=== PATIENT | male | born 1965 | race Caucasian/White ===

== ENCOUNTER 2016-05-30 16:37 | Emergency (ER) | payer OTHER ==
[~2016-05-30] VITALS: Ht 170.2 cm; Wt 77.1 kg
[~2016-05-30 16:37] MED LIST: ATIVAN0.5 MG ORAL; BENTYL10 MG ORAL; BUSPAR5 MG PO; CEPHALEXIN500 MG ORAL; CORTISPORIN EAR10 ML RIGHT EAR; CYCLOBENZAPRINE10 MG ORAL; DEPAKOTE250 MG PO; IBUPROFEN400 MG ORAL; IBUPROFEN600 MG ORAL; IBUPROFEN600 MG PO; INH300 MG PO; KEFLEX500 MG ORAL; LAMICTAL25 MG PO; LEVAQUIN500 MG ORAL; MECLIZINE HCL25 MG ORAL; ONDANSETRON HCL8 MG PO; POTASSIUM CHLO20 ME1 PO; PYRIDOXINE HCL50 MG PO; TENORMIN25 MG ORAL; TENORMIN25 MG PO; TRUVADA1 TAB PO; VICODIN 5-5001 EACH ORAL; VIRAMUNE XR400 MG PO; ZANTAC150 MG ORAL; ZOFRAN ODT4 MG ORAL; ZOLOFT25 MG PO
[2016-05-30 17:02] VITALS: BP 132/81
[2016-05-30] MEDS ORDERED: CEPHALEXIN500 MG ORAL ×2 (17:22→17:30)
[2016-05-30 17:30] VITALS: BP 132/81
--- NOTE | 2016-05-30 19:13 | Emergency Room Report ---
History of Present Illness General Chief Complaint: Skin Rash/Abscess Source: Patient Present Illness HPI The patient is a 51-year-old male presenting with right buttock bumps which he noticed last night. The patient denies any pain to the site and denies fever, chills, numbness, tingling, bleeding, melena, hematochezia Allergies: Coded Allergies: No Known Allergies (Unverified , 03/25/13) Patient History Past Medical History: see triage record Pertinent Family History: none Reviewed Nursing Documentation: PMH: Agreed, PSxH: Agreed Nursing Documentation-PMH Past Medical History: No History, Except For Hx Cardiac Problems: Yes - Palpitation Hx Hypertension: No Hx Pacemaker: No Hx Asthma: No Hx COPD: No Hx Diabetes: No Hx Cancer: No Hx Dialysis: No Hx Neurological Problems: No Hx Cerebrovascular Accident: No Hx Seizures: No Review of Systems All Other Systems: negative except mentioned in HPI Physical Exam Vital Signs Date Time Temp Pulse Resp B/P Pulse Ox O2 Delivery O2 Flow Rate FiO2 05/30/16 16:56 98.8 70 13 132/81 100 Room Air Sp02 EP Interpretation: reviewed, normal General Appearance: no apparent distress, alert, GCS 15, non-toxic Head: normocephalic, atraumatic Eyes: bilateral eye PERRL, bilateral eye normal inspection ENT: hearing grossly normal, normal pharynx, no angioedema, normal voice Musculoskeletal: back normal, gait/station normal, normal range of motion, non- tender Neurologic: alert, oriented x3, responsive, motor strength/tone normal, sensory intact, speech normal Psychiatric: judgement/insight normal, memory normal, mood/affect normal, no suicidal/homicidal ideation Skin: other - erythema to R medial buttock. Hot to touch. No edema. Non tender Medical Decision Making PA Attestation Dr. Russo is my supervising physician. Patient management was discussed with my supervising physician Diagnostic Impression: Primary Impression: Cellulitis of buttock, right ER Course The patient is a 51-year-old male presenting with right buttock bumps which he noticed last night. Ddx considered include but not limited to insect bite, contact dermatitis, eczema, cellulitis, abscess PE: vitals WNL. NAD R buttock: erythema to R medial buttock. Hot to touch. No edema. Non tender. No hemorrhoid. No papules or vesicles. The patient will be discharged home with a prescription for Keflex. ER precautions are given Last Vital Signs Date Time Temp Pulse Resp B/P Pulse Ox O2 Delivery O2 Flow Rate FiO2 05/30/16 17:30 98.8 78 13 132/81 100 Room Air Status: improved Disposition: HOME, SELF-CARE Condition: Improved Scripts Cephalexin* (KEFLEX*) 500 Mg Capsule 500 MG ORAL EVERY 12 HOURS, #14 CAP 0 Refills Prov: ROBERT APONTE 05/30/16 Referrals: THOMAS DUFFY (PCP) Patient Instructions: Cellulitis Additional Instructions: I discussed my findings with the patient. All questions and concerns have been answered. Treatment and medication compliance have been addressed. I advised the patient that they need to follow up with PMD in 3-5 days. Return to ED if symptoms worsen, new symptoms arise, or if needed for any reason. Patient verbalized understanding of discharge instructions. ROBERT APONTE May 30, 2016 19:13
[2016-05-31] MEDS ORDERED: HYDROCORTISONE28 G2 TP (09:55)
== END 2016-05-30 17:30 | disposition home or self-care (01) ==
LOC: EMR 17:11
DX: L03.317 Cellulitis of buttock (principal)
CPT/HCPCS: 99283

== ENCOUNTER 2016-05-31 09:34 | Emergency (ER) | payer OTHER ==
[~2016-05-31] VITALS: Ht 170.2 cm; Wt 79.8 kg
[2016-05-31 09:47] VITALS: BP 126/80
[2016-05-31] MEDS ORDERED: HYDROCORTISONE28 G2 TP (09:55)
--- NOTE | 2016-05-31 10:04 | Emergency Room Report ---
History of Present Illness General Chief Complaint: Skin Rash/Abscess Source: Patient Present Illness HPI Patient is a 51-year-old male presented after increased skin rash. The patient reported having a non-itchy rash raised lesions to his right buttock. He denied any fever. He had not been having any severe pain. Patient had denied any recent illness. Patient stated that this had been present in the past and resolve spontaneously. Patient is not using any new skin care products. He denied any trauma. Allergies: Coded Allergies: CEPHALEXIN (Verified Allergy, Unknown, 05/31/16) Patient History Reviewed Nursing Documentation: PMH: Agreed, PSxH: Agreed Nursing Documentation-PM Past Medical History: No History, Except For Hx Hypertension: No Hx Pacemaker: No Hx Asthma: No Hx COPD: No Hx Diabetes: No Hx Cancer: No Hx Dialysis: No Hx Neurological Problems: No Hx Cerebrovascular Accident: No Hx Seizures: No Review of Systems All Other Systems: negative except mentioned in HPI Physical Exam Vital Signs Date Time Temp Pulse Resp B/P Pulse Ox O2 Delivery O2 Flow Rate FiO2 05/31/16 09:39 97.0 58 16 126/80 100 Room Air General Appearance: well appearing, no apparent distress, alert, GCS 15 Head: normocephalic, atraumatic ENT: hearing grossly normal, normal voice Neck: full range of motion, supple Respiratory: no respiratory distress, speaking full sentences Gastrointestinal: normal inspection, normal bowel sounds, non tender, soft Musculoskeletal: normal inspection, back normal, no calf tenderness Neurologic: normal inspection, alert, oriented x3, responsive, normal gait Psychiatric: normal inspection, judgement/insight normal, mood/affect normal Skin: rash - light pink papular lesions to both forearms and right buttock Medical Decision Making Diagnostic Impression: Primary Impression: Rash ER Course The patient presented for skin rash. Differential diagnosis included wasn't limited to here to dermatitis, contact allergy, scabies, eczema among others. This rash appears to be consistent with an eczematous dermatitis. Patient was given prescription for hydrocortisone cream. The patient is advised to follow up with primary care doctor in 1-2 days. Patient is advised to return if any worsening condition or if any changes in status that are concerning. Last Vital Signs Date Time Temp Pulse Resp B/P Pulse Ox O2 Delivery O2 Flow Rate FiO2 05/31/16 09:47 97.0 60 16 126/80 100 Room Air Status: improved Disposition: HOME, SELF-CARE Condition: Stable Scripts Hydrocortisone Acetate 1% Onit (HYDROCORTISONE 1% OINT) Y Oint 28 GM TP DAILY for 10 Days, #28 GM Prov: Norman Palmer 05/31/16 Referrals: THOMAS DUFFY (PCP) Patient Instructions: Norman Nur May 31, 2016 10:04
[2016-05-31 10:20] VITALS: BP 126/80
== END 2016-05-31 10:21 | disposition home or self-care (01) ==
LOC: EMR 09:55
DX: R21 Rash and other nonspecific skin eruption (principal); Z88.1 Allergy status to other antibiotic agents
CPT/HCPCS: 99283

== ENCOUNTER 2016-07-01 20:27 | Emergency (ER) | payer OTHER ==
[~2016-07-01] VITALS: Ht 170.2 cm; Wt 80.7 kg
[~2016-07-01 20:27] MED LIST changes: +HYDROCORTISONE28 G2 TP
[2016-07-01] MEDS ORDERED: CYCLOBENZAPRINE10 MG ORAL (21:20)
[2016-07-01] MEDS ORDERED: IBUPROFEN600 MG ORAL (21:20)
[2016-07-01 21:27] VITALS: BP 141/86
[2016-07-01 21:29] VITALS: BP 141/86
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
== END 2016-07-01 21:30 | disposition home or self-care (01) ==
LOC: EMR 21:19
DX: S16.1XXA Strain of muscle, fascia and tendon at neck level, initial encounter (principal); Z88.1 Allergy status to other antibiotic agents; V43.52XA Car driver injured in collision with other type car in traffic accident, initial encounter; Y92.410 Unspecified street and highway as the place of occurrence of the external cause; Y99.8 Other external cause status
CPT/HCPCS: 99284

== ENCOUNTER 2016-07-16 10:55 | Emergency (ER) | payer OTHER ==
[~2016-07-16] VITALS: Ht 170.2 cm; Wt 81.2 kg
[2016-07-16 11:06] VITALS: BP 123/73
[2016-07-16] MEDS ORDERED: NYSTATIN100000 UN1 ORAL (12:28)
[2016-07-16 12:35] VITALS: BP 129/78
--- NOTE | 2016-07-16 23:39 | Emergency Room Report ---
History of Present Illness General Chief Complaint: General Complaint Source: Patient Present Illness HPI Patient with sore throat and white plaques R side of throat. Reported fever, not documented. No chills. Able to eat without difficulty. No other URI sy. HIV + states viral load low and T cells high. States recent follow by PMD. Patient reluctant to give other history or discuss sexual practices. Allergies: Coded Allergies: CEPHALEXIN (Verified Allergy, Unknown, 05/31/16) Patient History Past Medical History: see triage record Social History: Reports: smoking Social History Narrative at home Nursing Documentation-[facility] Past Medical History: No History, Except For Hx Hypertension: No Hx Pacemaker: No Hx Asthma: No Hx COPD: No Hx Diabetes: No Hx Cancer: No Hx Dialysis: No Hx Neurological Problems: No Hx Cerebrovascular Accident: No Hx Seizures: No Review of Systems All Other Systems: negative except mentioned in HPI Physical Exam Vital Signs Date Time Temp Pulse Resp B/P Pulse Ox O2 Delivery O2 Flow Rate FiO2 07/16/16 10:57 98.1 64 14 123/73 98 Room Air Sp02 EP Interpretation: reviewed, normal General Appearance: well appearing, no apparent distress Head: normocephalic, atraumatic Eyes: bilateral eye PERRL, bilateral eye normal inspection ENT: hearing grossly normal, normal voice, pharyngeal erythema - with white plaque R, no pseudomembrane Neck: full range of motion, supple Respiratory: no respiratory distress, speaking full sentences Cardiovascular #1: regular rate, rhythm Musculoskeletal: digits/nails normal, gait/station normal Neurologic: alert, normal gait, grossly normal Psychiatric: other - flat affect and slightly suspicious, not delusional or suicidal Skin: normal inspection, no rash Medical Decision Making Diagnostic Impression: Primary Impression: Thrush, oral Additional Impressions: Throat pain HIV (human immunodeficiency virus infection) H/O: depression ER Course Patient with HIV and sore throat with white plaque. DDx: mono, thrush, strep, GC, viral. Exam against strep. Exam also most c/w thrush. Patient reluctant for any testing and also questions treatment plan. I explained my findings and told him of plan for Rx: He states he will check with own MD before accepting treatment. Patient stable for outpatient observation and treatment Last Vital Signs Date Time Temp Pulse Resp B/P Pulse Ox O2 Delivery O2 Flow Rate FiO2 07/16/16 12:35 61 16 129/78 100 Room Air 07/16/16 11:06 98.1 Status: unchanged Disposition: HOME, SELF-CARE Condition: Stable Scripts Nystatin* (NYSTATIN*) 100,000 Unit/1 Ml Oral.susp 5 ML ORAL FOUR TIMES A DAY for 10 Days, ML Swish in the mouth and retain for as long as possible (several minutes) before swallowing Prov: Malcolm Westbrook M.D. 07/16/16 Patient Instructions: Thrush, Adult Additional Instructions: Follow up with your doctor. This could be viral. Tylenol can help with pain and fever. Malcolm Westbrook M.D. Jul 16, 2016 23:38
== END 2016-07-16 12:35 | disposition home or self-care (01) ==
LOC: EMR 11:50
DX: B37.0 Candidal stomatitis (principal); F32.9 Major depressive disorder, single episode, unspecified; F17.200 Nicotine dependence, unspecified, uncomplicated; Z88.1 Allergy status to other antibiotic agents
CPT/HCPCS: 99283

== ENCOUNTER 2016-09-02 22:19 | Emergency (ER) | payer OTHER ==
[~2016-09-02] VITALS: Ht 170.2 cm; Wt 80.7 kg
[~2016-09-02 22:19] MED LIST changes: +NYSTATIN100000 UN1 ORAL
[2016-09-02 23:05] VITALS: BP 134/79
[2016-09-02 23:38] LABS: APPEARANCE,URINE CLEAR; KETONES,URINE 4+ (NEGATIVE); LEUKOCYTE ESTERASE ,URINE NEGATIVE (NEGATIVE); NITRITE,URINE NEGATIVE (NEGATIVE); PH,URINE 5 (4.5-8.0); PROTEIN,URINE NEGATIVE (NEGATIVE); UROBILINOGEN,URINE NORMAL MG/DL (0.0-1.0)
[2016-09-03 00:21] LABS: WBC,URINE 0-2 /HPF (0 - 0)
[2016-09-03 00:41] VITALS: BP 127/76
--- NOTE | 2016-09-03 02:05 | Emergency Room Report ---
History of Present Illness General Chief Complaint: Male Urogenital Problems Source: Patient Present Illness HPI 51 YOM c/o intermittent inability to urinate. However was able to urinate before coming to ED. Denies dysuria, fever/chills, flank pain, history of urinary obstruction, BPH or previous dunham catheter placement. Saw Urologist last week, had "normal" bladder scan and UA. Patient endorses a lot of stress at home, work. Allergies: Coded Allergies: CEPHALEXIN (Verified Allergy, Unknown, 05/31/16) Patient History Past Medical History: none Past Surgical History: none Pertinent Family History: none Social History: Denies: alcohol use, drug use, smoking Immunizations: UTD Reviewed Nursing Documentation: PMH: Agreed, PSxH: Agreed Nursing Documentation-PMH Past Medical History: No History, Except For Hx Hypertension: No Hx Pacemaker: No Hx Asthma: No Hx COPD: No Hx Diabetes: No Hx Cancer: No Hx Dialysis: No Hx Neurological Problems: No Hx Cerebrovascular Accident: No Hx Seizures: No Review of Systems All Other Systems: negative except mentioned in HPI Physical Exam Vital Signs Date Time Temp Pulse Resp B/P Pulse Ox O2 Delivery O2 Flow Rate FiO2 09/02/16 22:54 98.2 84 16 134/79 98 Room Air Sp02 EP Interpretation: reviewed, normal General Appearance: normal inspection, well appearing, no apparent distress, alert Head: atraumatic ENT: normal ENT inspection, hearing grossly normal, normal voice Neck: normal inspection, full range of motion, supple, no bony tend Respiratory: normal inspection, lungs clear, normal breath sounds, no respiratory distress, no retraction, no wheezing Cardiovascular #1: regular rate, rhythm, no edema Gastrointestinal: normal inspection, normal bowel sounds, non tender, soft, no guarding, no hernia Genitourinary: no CVA tenderness Musculoskeletal: normal inspection, back normal, normal range of motion, Staci' s Sign negative Neurologic: normal inspection, alert, oriented x3, responsive, water trainer III-XII nml as tested, motor strength/tone normal, speech normal Psychiatric: normal inspection, judgement/insight normal, mood/affect normal, anxious, other - avoiding eye contact, flat affect Skin: normal inspection, normal color, no rash Medical Decision Making Diagnostic Impression: Primary Impression: Urinary retention ER Course 51 YO M with episodes of urinary retention Bedside sono does NOT show distended bladder UA: microscopic hematuria but no UTI Reassured patient Advised Urology followup as needed Last Vital Signs Date Time Temp Pulse Resp B/P Pulse Ox O2 Delivery O2 Flow Rate FiO2 09/03/16 00:41 98.2 84 16 134/79 98 Room Air Status: improved Disposition: HOME, SELF-CARE Condition: Improved Patient Instructions: Acute Urinary Retention, Male, [id number] BRAVO MORGAN M.D. Sep 03, 2016 02:05
== END 2016-09-03 00:41 | disposition home or self-care (01) ==
LOC: EMR 22:37
DX: R33.9 Retention of urine, unspecified (principal); Z88.1 Allergy status to other antibiotic agents
CPT/HCPCS: 81003; 99282

== ENCOUNTER 2016-09-23 09:39 | Emergency (ER) | payer OTHER ==
[~2016-09-23] VITALS: Ht 170.2 cm; Wt 80.7 kg
[2016-09-23 10:05] VITALS: BP 118/71
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
[2016-09-23] MEDS ORDERED: IBUPROFEN600 MG ORAL (10:22)
[2016-09-23 10:52] VITALS: BP 122/75
== END 2016-09-23 10:54 | disposition home or self-care (01) ==
LOC: EMR 10:25
DX: R10.31 Right lower quadrant pain (principal); Z88.8 Allergy status to other drugs, medicaments and biological substances
CPT/HCPCS: 99283

== ENCOUNTER 2016-09-27 14:18 | Emergency (ER) | payer OTHER ==
[~2016-09-27] VITALS: Ht 170.2 cm; Wt 80.7 kg
--- NOTE | 2016-09-27 14:50 | Emergency Room Report ---
History of Present Illness General Chief Complaint: General Complaint Source: Medical Record Present Illness HPI 51 YO Male presents to the ED for evaluation of one episode of palpitation without CP that occurred yesterday early afternoon. Pt. as hx of anxiety, and psychiatrist dx'd pt. w. with somatic disorder. pt. currently takes atenolol. reports one episode yesterday of palpitations that resolved on their own. pt. reports being "very stressed" when trying to order breakfast. he felt he was having to wait longer than usual for a waffle, the restaurant neglected to tell him that the waffle maker required time to "warm up first". Pt states he has tried buspar in the past which worked well for him, and has had several psychiatrists and that SSRI's do not work well for him as they worsen his symptoms. pt. states he has another appt. with a new psych. on the of this month. pt. denies palpitations today. pt. came to ED for evaluation since the soonest appt. he could get with the new psychiatrist is not until the . Denies N/V/F/C. Denies SOB, recent illness, cough, CP, , LOC, AMS, dizziness, Changes in Vision, Sensation, paresthesias, or a sudden severe headache. Allergies: Coded Allergies: CEPHALEXIN (Verified Allergy, Unknown, 05/31/16) Patient History Past Medical History: see triage record, psych hx Past Surgical History: none Pertinent Family History: none Reviewed Nursing Documentation: PMH: Agreed, PSxH: Agreed Nursing Documentation-PMH Past Medical History: No History, Except For Hx Hypertension: No Hx Pacemaker: No Hx Asthma: No Hx COPD: No Hx Diabetes: No Hx Cancer: No Hx Dialysis: No Hx Neurological Problems: No Hx Cerebrovascular Accident: No Hx Seizures: No Review of Systems All Other Systems: negative except mentioned in HPI Physical Exam Vital Signs Date Time Temp Pulse Resp B/P Pulse Ox O2 Delivery O2 Flow Rate FiO2 09/27/16 14:45 98.4 69 16 124/80 96 Room Air Sp02 EP Interpretation: reviewed, normal General Appearance: no apparent distress, alert, GCS 15, non-toxic Head: normocephalic, atraumatic Eyes: bilateral eye PERRL, bilateral eye normal inspection ENT: hearing grossly normal, normal pharynx, no angioedema, normal voice Neck: full range of motion, supple/symm/no masses Respiratory: chest non-tender, lungs clear, normal breath sounds, speaking full sentences Cardiovascular #1: regular rate, rhythm, no edema Musculoskeletal: back normal, gait/station normal, normal range of motion, non- tender Neurologic: alert, oriented x3, responsive, motor strength/tone normal, sensory intact, speech normal Psychiatric: judgement/insight normal, memory normal, mood/affect normal, anxious Skin: normal color, no rash, warm/dry, well hydrated Medical Decision Making PA Attestation Dr. Palmer is my supervising Physician whom patient management has been discussed with. Diagnostic Impression: Primary Impression: Palpitations ER Course 51 YO Male presents to the ED for evaluation of one episode of palpitation without CP that occurred yesterday early afternoon. Pt. as hx of anxiety, and psychiatrist dx'd pt. w. with somatic disorder. pt. currently takes atenolol. reports one episode yesterday of palpitations that resolved on their own. pt. reports being "very stressed" when trying to order breakfast. he felt he was having to wait longer than usual for a waffle, the restaurant neglected to tell him that the waffle maker required time to "warm up first". Pt states he has tried buspar in the past which worked well for him, and has had several psychiatrists and that SSRI's do not work well for him as they worsen his symptoms. pt. states he has another appt. with a new psych. on the of this month. pt. denies palpitations today. pt. came to ED for evaluation since the soonest appt. he could get with the new psychiatrist is not until the . Denies N/V/F/C. Denies SOB, recent illness, cough, CP, , LOC, AMS, dizziness, Changes in Vision, Sensation, paresthesias, or a sudden severe headache. Ddx considered but are not limited to TX, arrhythmia, hypokalemia, anxiety reaction. Vital signs: are WNL, pt. is afebrile H&PE are most consistent with hx of palpitation, hx of anxiety ORDERS: - EK BPM NSR, no acute ST changes, reviewed by Dr. Palmer who has also reviewed this pt,'s ekg's in the past. Pt has been evaluated here in the ED for same complaint multiple times in the past with benign testing results. pt. states he has also been seen by network diagnostic support specialist and psych. pt. does not report change in character from previous episodes of palpitations. I do not feel that further work up is necessary at this time, given relatively normal EKG and benign PE with previously normal work ups. ED INTERVENTIONS: none. PT EDUCATION: encouraged pt. to go to his psych appt. on the , and d/w pt. medications to reduce anxiety, which ultimately may help with episodes of palpitations. also d/w pt. that he should also be re-evaluated by [employer] Worker. d/w pt. to return to ED with worsening or new symptoms. DISCHARGE: At this time pt. is stable for d/c to home. Will provide printed patient care instructions, and any necessary prescriptions. Care plan and follow up instructions have been discussed with the patient prior to discharge. EKG Diagnostic Results EP Interpretation: Rate: normal - 70 bpm Rhythm: NSR ST Segments: no acute changes ASA given to the pt in ED: No Last Vital Signs Date Time Temp Pulse Resp B/P Pulse Ox O2 Delivery O2 Flow Rate FiO2 09/27/16 14:45 98.4 16 96 09/27/16 14:45 69 124/80 Room Air Disposition: HOME, SELF-CARE Condition: Stable Patient Instructions: Palpitations, [id number] Additional Instructions: Take medications as directed. Follow up with PCP in 3-5 days * Highly recommend follow up with your psychiatrist Return sooner to ED if new symptoms occur, or current symptoms become worse. - Please note that this Emergency Department Report was dictated using [employer] enamel laborer technology software, occasionally this can lead to erroneous entry secondary to interpretation by the dictation equipment. Nery East September 27, 2016 14:50
[2016-09-27 15:45] VITALS: BP 125/91
--- NOTE | 2016-09-29 12:00 | Cardiology Report ---
APPROVED REPORT EKG Measurement Heart [id number] Normal sinus rhythm Normal ECG
== END 2016-09-27 15:47 | disposition home or self-care (01) ==
LOC: EMR 15:10
DX: R00.2 Palpitations (principal); Z88.1 Allergy status to other antibiotic agents
CPT/HCPCS: 93005; 99283

== ENCOUNTER 2016-10-04 09:17 | Emergency (ER) | payer OTHER ==
[~2016-10-04] VITALS: Ht 170.2 cm; Wt 80.7 kg
--- NOTE | 2016-10-04 09:36 | Emergency Room Report ---
History of Present Illness General Chief Complaint: Skin Rash/Abscess Source: Patient Present Illness HPI The patient presents with rash on his hands and left forearm. He's had this before. He states there is no itching. It usually goes away within 4 - 5 days. He had labs done at his clinic on Thursday and states that his CBC was normal at that time. He's never been treated for scabies. In the past hydrocortisone cream works and helps. Denies any new foods, fevers, soaps, clothes. Has an appointment with money room teller but wants to be seen today. The patient is being treated for HIV. This has been stable. Also has h/o schizophrenia which is stable (no SI or HI). States tetanus is UTD. Allergies: Coded Allergies: No Known Allergies (Unverified , 10/04/16) Patient History Past Medical History: see triage record Social History: Denies: smoking Social History Narrative at home Reviewed Nursing Documentation: PMH: Agreed, PSxH: Agreed Nursing Documentation-PMH Hx Hypertension: No Hx Pacemaker: No Hx Asthma: No Hx COPD: No Hx Diabetes: No Hx Cancer: No Hx Dialysis: No Hx Neurological Problems: No Hx Cerebrovascular Accident: No Hx Seizures: No Review of Systems All Other Systems: negative except mentioned in HPI Physical Exam Vital Signs Date Time Temp Pulse Resp B/P Pulse Ox O2 Delivery O2 Flow Rate FiO2 10/04/16 09:21 97.2 56 16 126/81 96 Room Air Sp02 EP Interpretation: reviewed, normal General Appearance: well appearing, no apparent distress Head: normocephalic, atraumatic Eyes: bilateral eye PERRL, bilateral eye normal inspection ENT: hearing grossly normal, normal voice, moist mucus membranes Neck: full range of motion, supple Respiratory: no respiratory distress, speaking full sentences Musculoskeletal: no calf tenderness Neurologic: alert, normal gait Psychiatric: other - flat affect Skin: rash - Erythematous macular papular rash on the dorsum of both hands and also in the cubital area the left arm. Medical Decision Making Diagnostic Impression: Primary Impression: Rash ER Course Patient presents with a rash on his hands. Differential includes allergy, hives , scabies, contact dermatitis amongst others. He states that he has never been treated for scabies and it resolves spontaneously. He denies any itching. The likelihood scabies is quite low. The patient is stable for observation as an outpatient and treatment. He hasn' t been with his money room teller on Thursday for Last Vital Signs Date Time Temp Pulse Resp B/P Pulse Ox O2 Delivery O2 Flow Rate FiO2 10/04/16 09:45 97.2 16 126/81 96 Room Air 10/04/16 09:21 56 Status: unchanged Disposition: HOME, SELF-CARE Condition: Stable Scripts Hydrocortisone (HYDROCORTISONE) 30 Gm Cream..g. 1 APPLIC RC BID Y for rash, #15 GM Prov: Malcolm Westbrook M.D. 10/04/16 Malcolm Westbrook M.D. October 04, 2016 09:35
[2016-10-04] MEDS ORDERED: HYDROCORTISONE30 G2 RC (09:38)
[2016-10-04 09:43] VITALS: BP 126/81
[2016-10-04 09:45] VITALS: BP 126/81
== END 2016-10-04 09:47 | disposition home or self-care (01) ==
LOC: EMR 09:35
DX: R21 Rash and other nonspecific skin eruption (principal); F20.9 Schizophrenia, unspecified
CPT/HCPCS: 99283

== ENCOUNTER 2016-10-21 15:17 | Emergency (ER) | payer OTHER ==
[~2016-10-21] VITALS: Ht 170.2 cm; Wt 80.7 kg
[~2016-10-21 15:17] MED LIST changes: +HYDROCORTISONE30 G2 RC
[2016-10-21 16:17] VITALS: BP 127/83
--- NOTE | 2016-10-23 07:54 | Emergency Room Report ---
History of Present Illness General Chief Complaint: Palpitations Source: Patient Present Illness HPI Patient presents with complaints of palpitation sensation This happened earlier today patient had made contact with primary physician And presents for evaluation Denies any current palpitation sensation denies any chest pain or shortness of breath denies any back or flank pain Patient is on atenolol Denies any fevers or chills Patient had a mild sore throat and reports his primary physician did not feel there was any obvious infection Allergies: Coded Allergies: No Known Allergies (Unverified , 10/04/16) Patient History Past Medical History: see triage record Pertinent Family History: none Reviewed Nursing Documentation: PMH: Agreed, PSxH: Agreed Nursing Documentation-PMH Hx Hypertension: No Hx Pacemaker: No Hx Asthma: No Hx COPD: No Hx Diabetes: No Hx Cancer: No Hx Dialysis: No Hx Neurological Problems: No Hx Cerebrovascular Accident: No Hx Seizures: No Review of Systems All Other Systems: negative except mentioned in HPI Physical Exam Vital Signs Date Time Temp Pulse Resp B/P Pulse Ox O2 Delivery O2 Flow Rate FiO2 10/21/16 15:26 99.0 62 15 123/81 95 Room Air Sp02 EP Interpretation: reviewed, normal General Appearance: well appearing, no apparent distress Head: normocephalic, atraumatic Eyes: bilateral eye EOMI, bilateral eye PERRL ENT: hearing grossly normal, normal pharynx, TMs + canals normal, uvula midline Neck: full range of motion, supple, no meningismus, no bony tend Respiratory: lungs clear, normal breath sounds, no rhonchi, no respiratory distress, no retraction, no accessory muscle use Cardiovascular #1: normal peripheral pulses, regular rate, rhythm, no edema, no gallop, no JVD, no murmur Gastrointestinal: normal bowel sounds, non tender, soft, no mass, no organomegaly, non-distended, no guarding, no hernia, no pulsatile mass, no rebound Genitourinary: no CVA tenderness Musculoskeletal: normal inspection Neurologic: oriented x3, responsive, manager post III-XII nml as tested, motor strength/ tone normal, sensory intact Psychiatric: mood/affect normal Skin: normal color, no rash, warm/dry, palpation normal Lymphatic: normal inspection, no adenopathy Medical Decision Making Diagnostic Impression: Primary Impression: Palpitations ER Course Patient is a fairly complex patient with multiple differential to consideration including but not limited to cardiac cardiopulmonary and vascular emergencies Patient is a fairly benign evaluation EKG and rhythm strip did not show any obvious acute disease Patient is mildly bradycardic He is on atenolol Patient has close followup with his chaplain resident and was recommended to followup closely EKG Diagnostic Results Rate: bradycardiac Rhythm: NSR ST Segments: no acute changes Rhythm Strip Diag. Results EP Interpretation: yes Rate: 60 Rhythm: NSR, no PVC's, no ectopy Last Vital Signs Date Time Temp Pulse Resp B/P Pulse Ox O2 Delivery O2 Flow Rate FiO2 10/21/16 16:17 56 16 127/83 97 Room Air 10/21/16 16:17 98.4 Status: improved Disposition: HOME, SELF-CARE Condition: Improved Referrals: THOMAS DUFFY (PCP) Patient Instructions: Palpitations, [id number] Additional Instructions: Patient is provided with the discharge instructions notified to follow up with primary doctor in the next 2-3 days otherwise return to the er with any worsening symptoms. Please note that this report is being documented using [employer] technology. This can lead to erroneous entry secondary to incorrect interpretation by the dictating instrument. KARL PEÑA D.O. Oct 23, 2016 07:54
== END 2016-10-21 16:20 | disposition home or self-care (01) ==
LOC: EMR 15:45
DX: R00.2 Palpitations (principal)
CPT/HCPCS: 99283

== ENCOUNTER 2016-10-24 20:46 | Emergency (ER) | payer OTHER ==
--- NOTE | 2016-10-24 23:49 | Emergency Room Report ---
History of Present Illness General Chief Complaint: To Be Triaged Present Illness Allergies: Coded Allergies: No Known Allergies (Unverified , 10/04/16) Nursing Documentation-PMH Hx Hypertension: No Hx Pacemaker: No Hx Asthma: No Hx COPD: No Hx Diabetes: No Hx Cancer: No Hx Dialysis: No Hx Neurological Problems: No Hx Cerebrovascular Accident: No Hx Seizures: No Medical Decision Making Diagnostic Impression: Primary Impression: Nausea Additional Impression: LWBS ER Course patient left without being seen Status: unchanged Disposition: LEFT W/OUT BEING SEEN Condition: Stable Referrals: THOMAS DUFFY (PCP) SRIDHAR ROCHA M.D. Oct 24, 2016 23:49
== END 2016-10-24 20:51 | disposition left against medical advice (07) ==
LOC: EMR 20:51
DX: R11.0 Nausea (principal); Z53.21 Procedure and treatment not carried out due to patient leaving prior to being seen by health care provider

== ENCOUNTER 2016-11-01 06:56 | Emergency (ER) | payer OTHER ==
[~2016-11-01] VITALS: Ht 170.2 cm; Wt 80.7 kg
[2016-11-01 07:09] VITALS: BP 122/79
[2016-11-01] MEDS ORDERED: ZYRTEC10 MG ORAL (07:37)
[2016-11-01 07:46] VITALS: BP 122/79
--- NOTE | 2016-11-01 09:11 | Emergency Room Report ---
History of Present Illness General Chief Complaint: Palpitations Source: Patient Present Illness HPI 51 yo M presents to ED for evaluation of palpitations. Patient states he felt his heart skipping earlier today when he woke up. Lasted for only a few seconds and stopped. Patient states he has history of palpitations and takes medication for his heart. Denies any palpitations at this time. Denies any chest pain or shortness of breath. Patient denies any drug use. Patient is well-known to [facility] has been here multiple times in the past for similar presentation. Patient also complains of runny nose and congestion. Does history of allergies. No other aggravating or relieving factors. Denies any other associated symptom Allergies: Coded Allergies: No Known Allergies (Unverified , 10/04/16) Patient History Social History: Denies: alcohol use, drug use, smoking Immunizations: UTD Reviewed Nursing Documentation: PMH: Agreed, PSxH: Agreed Nursing Documentation-PMH Past Medical History: No History, Except For Hx Hypertension: No Hx Pacemaker: No Hx Asthma: No Hx COPD: No Hx Diabetes: No Hx Cancer: No Hx Dialysis: No Hx Neurological Problems: No Hx Cerebrovascular Accident: No Hx Seizures: No Review of Systems All Other Systems: negative except mentioned in HPI Physical Exam Vital Signs Date Time Temp Pulse Resp B/P Pulse Ox O2 Delivery O2 Flow Rate FiO2 11/01/16 07:00 97.5 61 16 122/79 99 Room Air Sp02 EP Interpretation: reviewed, normal General Appearance: no apparent distress, alert, GCS 15, non-toxic Head: normocephalic, atraumatic Eyes: bilateral eye PERRL, bilateral eye normal inspection ENT: hearing grossly normal, normal pharynx, no angioedema, normal voice Neck: full range of motion, supple/symm/no masses Respiratory: chest non-tender, lungs clear, normal breath sounds, speaking full sentences Cardiovascular #1: regular rate, rhythm, no edema Cardiovascular #2: 2+ carotid (R), 2+ carotid (L), 2+ radial (R), 2+ radial (L) , 2+ dorsalis pedis (R), 2+ dorsalis pedis (L) Gastrointestinal: normal bowel sounds, non tender, soft, non-distended, no guarding, no rebound Rectal: deferred Genitourinary: normal inspection, no CVA tenderness Musculoskeletal: back normal, gait/station normal, normal range of motion, non- tender, calf tenderness Neurologic: alert, oriented x3, responsive, motor strength/tone normal, sensory intact, speech normal Psychiatric: judgement/insight normal, memory normal, no suicidal/homicidal ideation, other - flat affect Reflexes: 3+ bicep (R), 3+ bicep (L), 3+ tricep (R), 3+ tricep (L), 3+ knee (R) , 3+ knee (L) Skin: normal color, no rash, warm/dry, well hydrated Lymphatic: no adenopathy Medical Decision Making Diagnostic Impression: Primary Impression: Environmental allergies Additional Impression: Palpitations ER Course Hospital Course 51-year-old M presents ED complaining of palpitations Differential diagnoses include: afib, Vtach, SVT, anxiety, dehydration Clinical course Patient placed on stretcher. After initial history and physical I ordered EKG EKG - NSR, no acute ischemic changes interpreted by me Vitals are stable. Patient appears comfortable. Patient has extensive psychiatric history with a flat affect. Patient is well known to myself and other ED providers here. Patient is here multiple times for similar presentation. Reassurance given to the patient I. I feel this is a highly complex case requiring extensive working including EKG/Rhythm strip, Xray/CT/US, Blood/urine lab work, repeat exams while in ED, and administration of strong opiates/narcotics for pain control, admission to hospital or close patient follow up. Diagnosis - palpitations, environmental allergies Stable and discharged to home with prescription for Zyrtec. Instructed to followup with PMD. Return to ED if symptoms recur or worsen EKG Diagnostic Results Rate: normal Rhythm: NSR ST Segments: no acute changes ASA given to the pt in ED: No Rhythm Strip Diag. Results EP Interpretation: yes Rhythm: NSR, no PVC's, no ectopy Chest X-Ray Diagnostic Results Chest X-Ray Ordered: No Last Vital Signs Date Time Temp Pulse Resp B/P Pulse Ox O2 Delivery O2 Flow Rate FiO2 11/01/16 07:46 97.5 61 16 122/79 99 Room Air Status: improved Disposition: HOME, SELF-CARE Condition: Stable Scripts Cetirizine Hcl* (ZYRTEC*) 10 Mg Tablet 10 MG ORAL DAILY, #30 TAB 0 Refills Prov: SRIDHAR ROCHA M.D./10/17 Referrals: NON PHYSICIAN (PCP) Patient Instructions: Allergies, [id number] SRIDHAR ROCHA M.D. Nov 01, 2016 09:10
== END 2016-11-01 07:51 | disposition home or self-care (01) ==
LOC: EMR 07:30
DX: T78.40XA Allergy, unspecified, initial encounter (principal); X58.XXXA Exposure to other specified factors, initial encounter; R00.2 Palpitations
CPT/HCPCS: 93005; 99283

== ENCOUNTER 2016-11-14 10:43 | Emergency (ER) | payer OTHER ==
[~2016-11-14] VITALS: Ht 170.2 cm; Wt 77.1 kg
[~2016-11-14 10:43] MED LIST changes: +ZYRTEC10 MG ORAL
--- NOTE | 2016-11-14 12:10 | Emergency Room Report ---
History of Present Illness General Chief Complaint: General Complaint Source: Patient, Medical Record Present Illness HPI The patient states that he has been feeling skipped beats. He states that he did see a doctor for this previously and was told he had PVCs. He denies recent illness. He denies shortness of breath. He denies chest pain. He states that occasionally he will get a stabbing sensation but this is only when he was his arm. He has no other complaints. Allergies: Coded Allergies: No Known Allergies (Unverified , 10/04/16) Patient History Past Medical History: see triage record, psych hx, HIV Reviewed Nursing Documentation: PMH: Agreed, PSxH: Agreed Nursing Documentation-PMH Past Medical History: No History, Except For Hx Hypertension: No Hx Pacemaker: No Hx Asthma: No Hx COPD: No Hx Diabetes: No Hx Cancer: No Hx Dialysis: No Hx Neurological Problems: No Hx Cerebrovascular Accident: No Hx Seizures: No Review of Systems All Other Systems: negative except mentioned in HPI Physical Exam Vital Signs Date Time Temp Pulse Resp B/P Pulse Ox O2 Delivery O2 Flow Rate FiO2 11/14/16 10:49 98.1 58 16 117/69 99 Room Air Sp02 EP Interpretation: reviewed, normal General Appearance: no apparent distress, alert, GCS 15, non-toxic Head: normocephalic, atraumatic Eyes: bilateral eye PERRL, bilateral eye normal inspection ENT: hearing grossly normal, normal pharynx, no angioedema, normal voice Neck: full range of motion, supple/symm/no masses Respiratory: chest non-tender, lungs clear, normal breath sounds, speaking full sentences Cardiovascular #1: regular rate, rhythm, no edema Gastrointestinal: normal bowel sounds, non tender, soft, non-distended, no guarding, no rebound Rectal: deferred Musculoskeletal: back normal, gait/station normal, normal range of motion, non- tender Neurologic: alert, oriented x3, responsive, motor strength/tone normal, sensory intact, speech normal Psychiatric: judgement/insight normal, memory normal, mood/affect normal, no suicidal/homicidal ideation Skin: normal color, no rash, warm/dry, well hydrated Medical Decision Making Diagnostic Impression: Primary Impression: Palpitations ER Course The patient complains of skipped beats that are most likely PVCs. EKG is a unremarkable sinus bradycardia. There is no evidence of arrhythmia. Given the patient's history and physical exam I do not suspect an emergency medical condition. The patient is given close return precautions and followup instructions. EKG Diagnostic Results Rate: bradycardiac Rhythm: other ST Segments: no acute changes Other Impression S.bradycardia Rhythm Strip Diag. Results EP Interpretation: yes Rate: 50's Rhythm: no PVC's, no ectopy, other Other Impression S.miguel Last Vital Signs Date Time Temp Pulse Resp B/P Pulse Ox O2 Delivery O2 Flow Rate FiO2 11/14/16 10:49 98.1 58 16 117/69 99 Room Air Disposition: HOME, SELF-CARE Condition: Improved Referrals: THOMAS DUFFY (PCP) DELFIN COOL D.O. Nov 14, 2016 12:10
[2016-11-14 12:19] VITALS: BP 129/75
--- NOTE | 2016-11-17 20:22 | Cardiology Report ---
APPROVED REPORT EKG Measurement Heart [id number] Sinus bradycardia Otherwise normal ECG
== END 2016-11-14 12:21 | disposition home or self-care (01) ==
LOC: EMR 11:07
DX: R00.2 Palpitations (principal); R00.1 Bradycardia, unspecified
CPT/HCPCS: 93005; 99283

== ENCOUNTER 2016-12-03 14:52 | Emergency (ER) | payer OTHER ==
[~2016-12-03] VITALS: Ht 170.2 cm; Wt 80.7 kg
[2016-12-03 15:18] VITALS: BP 114/75
[2016-12-03 15:21] VITALS: BP 117/80
--- NOTE | 2016-12-03 18:20 | Emergency Room Report ---
History of Present Illness General Chief Complaint: Upper Extremity Injury Source: Patient Present Illness HPI 51-year-old male presents ED stating that he slammed a suitcase on his left thumb today. Patient states was initially bleeding so he came to ER. States bleeding has stopped. Denies any pain. Patient states tetanus is up-to-date. Denies any other injuries. No other aggravating or relieving factors. Denies any other associated symptoms Allergies: Coded Allergies: No Known Allergies (Unverified , 10/04/16) Patient History Past Medical History: none Past Surgical History: none Pertinent Family History: none Social History: Denies: alcohol use, drug use, smoking Immunizations: UTD Reviewed Nursing Documentation: PMH: Agreed, PSxH: Agreed Nursing Documentation-PMH Hx Hypertension: No Hx Pacemaker: No Hx Asthma: No Hx COPD: No Hx Diabetes: No Hx Cancer: No Hx Dialysis: No Hx Neurological Problems: No Hx Cerebrovascular Accident: No Hx Seizures: No Review of Systems All Other Systems: negative except mentioned in HPI Physical Exam Vital Signs Date Time Temp Pulse Resp B/P Pulse Ox O2 Delivery O2 Flow Rate FiO2 12/03/16 14:58 98.1 57 18 114/75 95 Room Air Sp02 EP Interpretation: reviewed, normal General Appearance: no apparent distress, alert, GCS 15, non-toxic Head: normocephalic Eyes: bilateral eye PERRL, bilateral eye normal inspection ENT: normal ENT inspection Neck: normal inspection Respiratory: normal inspection Cardiovascular #1: normal inspection Gastrointestinal: normal inspection Rectal: deferred Genitourinary: no CVA tenderness Musculoskeletal: back normal, gait/station normal, normal range of motion, non- tender Neurologic: alert, oriented x3, responsive, motor strength/tone normal, sensory intact, speech normal Psychiatric: judgement/insight normal, memory normal, mood/affect normal, no suicidal/homicidal ideation Skin: other - minimal dried blood noted to skin adjacent to nailbed. no bleeding Lymphatic: normal inspection Medical Decision Making Diagnostic Impression: Primary Impression: Thumb contusion Qualified Codes: S60.012A - Contusion of left thumb without damage to nail, initial encounter ER Course 51-year-old male presents ED with bleeding to the left thumb, slammed in a suitcase Differential-fracture, contusion, laceration Patient placed in chair. After initial history physical exam reveals a middle- aged male in no acute distress. There is some minimal dried blood noted to the skin adjacent to the nail bed. No active bleeding. Nailbed is intact. No subungual hematoma. No bruising. No tenderness. I don't believe there is any fracture. Patient agrees. does not want imaging. Tetanus is up-to-date. No further intervention required at this time Diagnosis - thumb contusion Stable and discharged to home. Followup with PMD. Return to ED if symptoms recur or worsen Last Vital Signs Date Time Temp Pulse Resp B/P Pulse Ox O2 Delivery O2 Flow Rate FiO2 12/03/16 15:21 98.1 67 16 117/80 98 Room Air Status: improved Disposition: HOME, SELF-CARE Condition: Stable Referrals: THOMAS DUFFY (PCP) Patient Instructions: Hand Contusion, [id number] SRIDHAR ROCHA M.D. Dec 03, 2016 18:20
== END 2016-12-03 15:25 | disposition home or self-care (01) ==
LOC: EMR 15:10
DX: S60.012A Contusion of left thumb without damage to nail, initial encounter (principal); W22.8XXA Striking against or struck by other objects, initial encounter; Y92.89 Other specified places as the place of occurrence of the external cause
CPT/HCPCS: 99282

== ENCOUNTER 2017-01-02 13:46 | Emergency (ER) | payer OTHER ==
[~2017-01-02] VITALS: Ht 170.2 cm; Wt 80.7 kg
[2017-01-02] MEDS ORDERED: LORazepam 0.5mg tab ORAL ONE (14:15)
[2017-01-02 15:06] VITALS: BP 108/71
--- NOTE | 2017-01-02 15:21 | Emergency Room Report ---
History of Present Illness General Chief Complaint: General Complaint Present Illness HPI The patient is a 51-year-old male presenting for feelings of anxiety and dizziness. He states that the symptoms began after doing with insurance issues. He denies history of anxiety disorder. He states that the dizziness has now completely resolved. He denies any pain. He denies other symptoms including N, V, F, chills, OROZCO, blurred vision, fatigue, weakness, CP, SOB Allergies: Coded Allergies: No Known Allergies (Unverified , 10/04/16) Patient History Past Medical History: see triage record Pertinent Family History: none Reviewed Nursing Documentation: PMH: Agreed, PSxH: Agreed Nursing Documentation-PMH Hx Hypertension: No Hx Pacemaker: No Hx Asthma: No Hx COPD: No Hx Diabetes: No Hx Cancer: No Hx Dialysis: No Hx Neurological Problems: No Hx Cerebrovascular Accident: No Hx Seizures: No Review of Systems All Other Systems: negative except mentioned in HPI Physical Exam Vital Signs Date Time Temp Pulse Resp B/P Pulse Ox O2 Delivery O2 Flow Rate FiO2 01/02/17 14:07 97.7 56 20 106/69 100 Room Air Sp02 EP Interpretation: reviewed, normal General Appearance: no apparent distress, alert, GCS 15, non-toxic Head: normocephalic, atraumatic Eyes: bilateral eye PERRL, bilateral eye normal inspection ENT: hearing grossly normal, normal pharynx, no angioedema, normal voice Neck: full range of motion, supple/symm/no masses Respiratory: chest non-tender, lungs clear, normal breath sounds, speaking full sentences Cardiovascular #1: no gallop, no JVD, no murmur, no rub, bradycardia Gastrointestinal: normal bowel sounds, non tender, soft, non-distended, no guarding, no rebound Genitourinary: normal inspection, no CVA tenderness Musculoskeletal: back normal, gait/station normal, normal range of motion, non- tender Neurologic: alert, oriented x3, responsive, motor strength/tone normal, sensory intact, speech normal Psychiatric: judgement/insight normal, memory normal, mood/affect normal, no suicidal/homicidal ideation Skin: normal color, no rash, warm/dry, well hydrated Medical Decision Making PA Attestation Dr. Palmer is my supervising physician. Patient management was discussed with my supervising physician Diagnostic Impression: Primary Impression: Bradycardia ER Course The patient is a 51 yo M presenting for feelings of anxiety DDx considered but not limited to: anxiety, depression, drug abuse, arrhythmia, psychosis, among others PE: Flat affect. NAD PERRL. EOMI No MRG. Bradycardia Lungs CTA bilat EKG shows sinus bradycardia at 53bpm. That patient states he feels better. He denies dizziness. He has declined a low dose ativan He needs to FU with PMD and will discuss decreasing his beta damaris due to bradycardia. ER precautions given EKG Diagnostic Results EP Interpretation: sinus bradycardia Rate: bradycardiac - 53 Rhythm: NSR ST Segments: no acute changes ASA given to the pt in ED: No PA Scribe Text EKG was reviewed and read with my supervising physician. No acute ST segment changes are seen. Sinus bradycardia Last Vital Signs Date Time Temp Pulse Resp B/P Pulse Ox O2 Delivery O2 Flow Rate FiO2 01/02/17 14:07 97.7 56 20 106/69 100 Room Air Status: improved Disposition: HOME, SELF-CARE Condition: Improved Patient Instructions: Bradycardia Additional Instructions: I discussed my findings with the patient. All questions and concerns have been answered. Treatment and medication compliance have been addressed. I advised the patient that they need to follow up with PMD in 3-5 days. Return to ED if symptoms worsen, new symptoms arise, or if needed for any reason. Patient verbalized understanding of discharge instructions. Please discuss possible change in dosage of atenolol with your primary doctor due to bradycardia. ROBERT APONTE Jan 02, 2017 15:21
--- NOTE | 2017-01-04 17:53 | Cardiology Report ---
APPROVED REPORT EKG Measurement Heart [id number] Sinus bradycardia Otherwise normal ECG
== END 2017-01-02 15:06 | disposition home or self-care (01) ==
LOC: EMR 14:40
DX: R00.1 Bradycardia, unspecified (principal)
CPT/HCPCS: 93005; 99283

== ENCOUNTER 2017-01-10 15:01 | Emergency (ER) | payer OTHER ==
[~2017-01-10] VITALS: Ht 170.2 cm; Wt 80.7 kg
[2017-01-10] MEDS ORDERED: HYDROCORTISON28.4 G5 TP (15:37)
[2017-01-10] MEDS ORDERED: CEPHALEXIN500 MG ORAL (15:37)
[2017-01-10 16:02] VITALS: BP 123/78
--- NOTE | 2017-01-10 17:55 | Emergency Room Report ---
History of Present Illness General Chief Complaint: Skin Rash/Abscess Source: Patient Present Illness HPI The patient is a 51-year-old male presenting for possible insect bite. He states that he noticed a red markings on his foot 5 days prior. This was initially described as itchy. This is now resolved and he has noticed increased redness to the area and swelling. He denies any pain at this time. He has not tried any medications at. He denies any other symptoms including N, V, F, chills, SOB, calf pain Allergies: Coded Allergies: No Known Allergies (Unverified , 10/04/16) Patient History Past Medical History: see triage record Pertinent Family History: none Reviewed Nursing Documentation: PMH: Agreed, PSxH: Agreed Nursing Documentation-PMH Hx Hypertension: No Hx Pacemaker: No Hx Asthma: No Hx COPD: No Hx Diabetes: No Hx Cancer: No Hx Dialysis: No Hx Neurological Problems: No Hx Cerebrovascular Accident: No Hx Seizures: No Review of Systems All Other Systems: negative except mentioned in HPI Physical Exam Vital Signs Date Time Temp Pulse Resp B/P Pulse Ox O2 Delivery O2 Flow Rate FiO2 01/10/17 15:07 97.9 58 17 120/74 97 Room Air Sp02 EP Interpretation: reviewed, normal General Appearance: no apparent distress, alert, GCS 15, non-toxic Head: normocephalic, atraumatic Eyes: bilateral eye PERRL, bilateral eye normal inspection ENT: hearing grossly normal, normal pharynx, no angioedema, normal voice Musculoskeletal: back normal, gait/station normal, normal range of motion, swelling - localized swelling to R dorsal foot, tender - TTP over the erythema of the R dorsal foot. 2cm in diameter Neurologic: alert, oriented x3, responsive, motor strength/tone normal, sensory intact, speech normal Psychiatric: judgement/insight normal, memory normal, mood/affect normal, no suicidal/homicidal ideation Skin: rash - 2cm diamater erythema and swelling to R dorsal medial foot Medical Decision Making PA Attestation Dr. Diop is my supervising physician. Patient management was discussed with my supervising physician Diagnostic Impression: Primary Impression: Insect bite Qualified Codes: W57.XXXA - Bitten or stung by nonvenomous insect and other nonvenomous arthropods, initial encounter ER Course The patient is a 51-year-old male presenting for possible insect bite Ddx considered include but not limited to insect bite, contact dermatitis, eczema, cellulitis Physical exam: Afebrile. No apparent distress There is a 2 cm in diameter erythematous lesion with localized soft tissue swelling of the right dorsal medial foot. No streaking. The patient was discharged home with a prescription for Keflex and hydrocortisone. He needs to follow up with primary doctor. ER precautions given Last Vital Signs Date Time Temp Pulse Resp B/P Pulse Ox O2 Delivery O2 Flow Rate FiO2 01/10/17 16:02 97.8 84 16 123/78 98 Room Air Status: improved Disposition: HOME, SELF-CARE Condition: Improved Scripts Hydrocortisone 1% cream (Hydrocortisone 1% cream) Y Cr 1 APPLIC TP TID, #15 GM Prov: ROBERT PAONTE 01/10/17 Cephalexin* (KEFLEX*) 500 Mg Capsule 500 MG ORAL EVERY 12 HOURS, #14 CAP 0 Refills Prov: ORBERT APONTE 01/10/17 Patient Instructions: Rash Additional Instructions: I discussed my findings with the patient. All questions and concerns have been answered. Treatment and medication compliance have been addressed. I advised the patient that they need to follow up with PMD in 3-5 days. Return to ED if symptoms worsen, new symptoms arise, or if needed for any reason. Patient verbalized understanding of discharge instructions. ROBERT APONTE Jan 10, 2017 17:55
== END 2017-01-10 16:02 | disposition home or self-care (01) ==
LOC: EMR 15:20
DX: S90.861A Insect bite (nonvenomous), right foot, initial encounter (principal); W57.XXXA Bitten or stung by nonvenomous insect and other nonvenomous arthropods, initial encounter; Y92.9 Unspecified place or not applicable
CPT/HCPCS: 99284

== ENCOUNTER 2017-02-07 20:29 | Emergency (ER) | payer OTHER ==
[~2017-02-07] VITALS: Ht 170.2 cm; Wt 80.7 kg
[~2017-02-07 20:29] MED LIST changes: +HYDROCORTISON28.4 G5 TP
[2017-02-07 21:10] VITALS: BP 134/93
--- NOTE | 2017-02-07 22:01 | Emergency Room Report ---
History of Present Illness General Chief Complaint: Palpitations Source: Patient Present Illness HPI 51-year-old male presents ED for evaluation. States his heart is beating irregularly. Started approximately one hour ago when having argument with his neighbor. Patient states it lasted for several seconds then resolved. Patient denies any symptoms at this time. Patient is well known to [facility] and has been here several times for similar presentation. At this time patient states he feels fine. Denies chest pain or shortness of breath. The dizziness or weakness. No other aggravating or leading factors. Denies any other associated symptoms Allergies: Coded Allergies: No Known Allergies (Unverified , 10/04/16) Patient History Past Medical History: none Past Surgical History: none Pertinent Family History: none Social History: Denies: smoking, alcohol use, drug use Immunizations: UTD Reviewed Nursing Documentation: PMH: Agreed, PSxH: Agreed Nursing Documentation-PMH Past Medical History: No History, Except For Hx Hypertension: No Hx Pacemaker: No Hx Asthma: No Hx COPD: No Hx Diabetes: No Hx Cancer: No Hx Dialysis: No Hx Neurological Problems: No Hx Cerebrovascular Accident: No Hx Seizures: No Review of Systems All Other Systems: negative except mentioned in HPI Physical Exam Vital Signs Date Time Temp Pulse Resp B/P (MAP) Pulse Ox O2 Delivery O2 Flow Rate FiO2 02/07/17 20:35 97.7 98 Room Air 02/07/17 21:10 134/93 Sp02 EP Interpretation: reviewed, normal General Appearance: no apparent distress, alert, GCS 15, non-toxic Head: normocephalic, atraumatic Eyes: bilateral eye normal inspection, bilateral eye PERRL ENT: hearing grossly normal, normal pharynx, no angioedema, normal voice Neck: full range of motion, supple/symm/no masses Respiratory: chest non-tender, lungs clear, normal breath sounds, speaking full sentences Cardiovascular #1: regular rate, rhythm, no edema Cardiovascular #2: 2+ carotid (R), 2+ carotid (L), 2+ radial (R), 2+ radial (L) , 2+ dorsalis pedis (R), 2+ dorsalis pedis (L) Gastrointestinal: normal bowel sounds, non tender, soft, non-distended, no guarding, no rebound Rectal: deferred Genitourinary: normal inspection, no CVA tenderness Musculoskeletal: back normal, gait/station normal, normal range of motion, non- tender Neurologic: alert, oriented x3, responsive, motor strength/tone normal, sensory intact, speech normal Psychiatric: judgement/insight normal, memory normal, mood/affect normal, no suicidal/homicidal ideation Reflexes: 3+ bicep (R), 3+ bicep (L), 3+ tricep (R), 3+ tricep (L), 3+ knee (R) , 3+ knee (L) Skin: normal color, no rash, warm/dry, well hydrated Lymphatic: no adenopathy Medical Decision Making Diagnostic Impression: Primary Impression: Palpitations ER Course Hospital Course 51-year-old male presents ED complaining of palpitations Differential diagnoses include: afib, Vtach, SVT, anxiety, dehydration Clinical course Patient placed on stretcher. After initial history and physical I ordered EKG EKG shows sinus bradycardia but no acute ischemic changes, no signs of arrhythmia no PVCs Patient has been here multiple times for similar presentation. Patient has significant psychiatric history with anxiety which is likely contributing to his symptoms Patient remained asymptomatic I see no reason to repeat labs or further workup at this time. Patient agrees and just wanted some reassurance I. I feel this is a highly complex case requiring extensive working including EKG/Rhythm strip, Xray/CT/US, Blood/urine lab work, repeat exams while in ED, and administration of strong opiates/narcotics for pain control, admission to hospital or close patient follow up. Diagnosis - palpitations Stable and discharged to home. Instructed to followup with PMD. Return to ED if symptoms recur or worsen EKG Diagnostic Results Rate: bradycardiac Rhythm: NSR ST Segments: no acute changes ASA given to the pt in ED: No Rhythm Strip Diag. Results EP Interpretation: yes Rhythm: NSR, no PVC's, no ectopy Last Vital Signs Date Time Temp Pulse Resp B/P (MAP) Pulse Ox O2 Delivery O2 Flow Rate FiO2 02/07/17 21:10 97.7 134/93 98 Room Air Status: improved Disposition: HOME, SELF-CARE Condition: Stable Referrals: NON PHYSICIAN (PCP) Patient Instructions: Palpitations, [id number] SRIDHAR ROCHA M.D. Feb 07, 2017 22:01
--- NOTE | 2017-02-09 19:06 | Cardiology Report ---
APPROVED REPORT EKG Measurement Heart [id number] Sinus bradycardia Otherwise normal ECG
== END 2017-02-07 21:10 | disposition home or self-care (01) ==
LOC: EMR 21:05
DX: R00.2 Palpitations (principal); R00.1 Bradycardia, unspecified
CPT/HCPCS: 93005; 99283

== ENCOUNTER 2017-02-15 21:12 | Emergency (ER) | payer OTHER ==
[~2017-02-15] VITALS: Ht 170.2 cm; Wt 79.4 kg
--- NOTE | 2017-02-15 21:52 | Emergency Room Report ---
History of Present Illness General Chief Complaint: Chest Pain Source: Patient Present Illness HPI Patient presents with chest pain. Actually denies pain at this time but concerned about taking different formulation of metoprolol. No fevers. Not exertional. Not radiating. Actually states pain is better now, just wants to be checked. No URI sy. No dyspnea. He's been seen here multiple times for palpitations in the past but denies these now. No SI/HI - h/o schizophrenia. HIV - stable. Allergies: Coded Allergies: No Known Allergies (Unverified , 10/04/16) Patient History Past Medical History: see triage record Social History: Denies: smoking Social History Narrative at home Reviewed Nursing Documentation: PMH: Agreed, PSxH: Agreed Nursing Documentation-PMH Past Medical History: No History, Except For Hx Hypertension: No Hx Pacemaker: No Hx Asthma: No Hx COPD: No Hx Diabetes: No Hx Cancer: No Hx Dialysis: No Hx Neurological Problems: No Hx Cerebrovascular Accident: No Hx Seizures: No Review of Systems All Other Systems: negative except mentioned in HPI Physical Exam Vital Signs Date Time Temp Pulse Resp B/P (MAP) Pulse Ox O2 Delivery O2 Flow Rate FiO2 02/15/17 21:15 97.7 50 20 123/81 97 Room Air Sp02 EP Interpretation: reviewed, normal General Appearance: well appearing, no apparent distress, GCS 15 Head: normocephalic Eyes: bilateral eye normal inspection, bilateral eye PERRL ENT: moist mucus membranes Neck: supple Respiratory: chest non-tender, lungs clear, normal breath sounds Cardiovascular #1: regular rate, rhythm Cardiovascular #2: 2+ radial (R) Gastrointestinal: normal inspection, normal bowel sounds, non tender, no mass, non-distended Musculoskeletal: back normal, gait/station normal, normal range of motion Neurologic: alert, oriented x3, grossly normal Psychiatric: no suicidal/homicidal ideation, other - flat affect Skin: normal inspection, warm/dry Medical Decision Making Diagnostic Impression: Primary Impression: Chest pain Qualified Codes: R07.9 - Chest pain, unspecified ER Course Patient presents wanting to be checked after taking different formulation of metoprolol. Ddx: anxiety, somatization, ACS, adverse medication reaction amongst others. VS against PE. Evaluation with EKG. Patient clinically stable. EKG with NSR, no acute changes. Patient stable. No medical emergency. Patient stable for outpatient observation and treatment. EKG Diagnostic Results Rate: normal Rhythm: NSR ST Segments: no acute changes Rhythm Strip Diag. Results EP Interpretation: yes Rhythm: NSR, no PVC's, no ectopy Last Vital Signs Date Time Temp Pulse Resp B/P (MAP) Pulse Ox O2 Delivery O2 Flow Rate FiO2 02/15/17 23:16 124/82 02/15/17 23:14 82 18 02/15/17 23:14 97.7 97 Room Air Status: improved - reassured Disposition: HOME, SELF-CARE Condition: Stable Malcolm Westbrook M.D. Feb 15, 2017 21:52
[2017-02-15 23:14] VITALS: BP 123/81
[2017-02-15 23:16] VITALS: BP 124/82
== END 2017-02-15 23:15 | disposition home or self-care (01) ==
LOC: EMR 23:13
DX: R07.9 Chest pain, unspecified (principal)
CPT/HCPCS: 93005; 99284

== ENCOUNTER 2017-03-08 07:07 | Emergency (ER) | payer OTHER ==
[~2017-03-08] VITALS: Ht 170.2 cm; Wt 81.6 kg
[2017-03-08 07:13] VITALS: BP 135/86
[2017-03-08 07:56] VITALS: BP 135/86
--- NOTE | 2017-03-08 08:20 | Emergency Room Report ---
History of Present Illness General Chief Complaint: Upper Respiratory Illness Source: Patient Present Illness HPI Patient present with complaints of runny nose and mild cough He reports that the pains last night likely flared up his allergies Patient reports having a nasal wash out which has significantly improved his symptoms denies any chest pain or shortness of breath denies any back or flank pain denies any headache denies any vomiting or diarrhea Allergies: Coded Allergies: No Known Allergies (Unverified , 10/04/16) Patient History Past Medical History: see triage record Pertinent Family History: none Reviewed Nursing Documentation: PMH: Agreed, PSxH: Agreed Nursing Documentation-PMH Past Medical History: No History, Except For Hx Hypertension: No Hx Pacemaker: No Hx Asthma: No Hx COPD: No Hx Diabetes: No Hx Cancer: No Hx Dialysis: No Hx Neurological Problems: No Hx Cerebrovascular Accident: No Hx Seizures: No Review of Systems All Other Systems: negative except mentioned in HPI Physical Exam Vital Signs Date Time Temp Pulse Resp B/P (MAP) Pulse Ox O2 Delivery O2 Flow Rate FiO2 03/08/17 07:13 97.7 50 18 135/86 98 Room Air Sp02 EP Interpretation: reviewed, normal General Appearance: well appearing, no apparent distress Head: normocephalic, atraumatic Eyes: bilateral eye PERRL, bilateral eye EOMI ENT: hearing grossly normal, normal pharynx, TMs + canals normal, uvula midline Neck: full range of motion, supple, no meningismus, no bony tend Respiratory: lungs clear, normal breath sounds, no rhonchi, no respiratory distress, no retraction, no accessory muscle use Cardiovascular #1: normal peripheral pulses, regular rate, rhythm, no edema, no gallop, no JVD, no murmur Gastrointestinal: normal bowel sounds, non tender, soft, no mass, no organomegaly, non-distended, no guarding, no hernia, no pulsatile mass, no rebound Genitourinary: no CVA tenderness Musculoskeletal: normal inspection Neurologic: oriented x3, responsive, 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 nml as tested, motor strength/ tone normal, sensory intact Psychiatric: mood/affect normal Skin: normal color, no rash, warm/dry, palpation normal Lymphatic: normal inspection, no adenopathy Medical Decision Making Diagnostic Impression: Primary Impression: allergies Additional Impression: uri ER Course Multiple differentials considered patient otherwise has clear lung sounds Mild rhinorrhea is noted Did not feel emergency imaging was required given the symptoms and the patient will have close followup Last Vital Signs Date Time Temp Pulse Resp B/P (MAP) Pulse Ox O2 Delivery O2 Flow Rate FiO2 03/08/17 07:56 97.7 18 135/86 98 Room Air 03/08/17 07:23 50 Status: unchanged Disposition: HOME, SELF-CARE Condition: Stable Referrals: NON PHYSICIAN (PCP) Patient Instructions: Hay Fever, [id number], Allergic Rhinitis Additional Instructions: Patient is provided with the discharge instructions notified to follow up with primary doctor in the next 2-3 days otherwise return to the er with any worsening symptoms. Please note that this report is being documented using Boxed technology. This can lead to erroneous entry secondary to incorrect interpretation by the dictating instrument. KARL PEÑA D.O. Mar 08, 2017 08:20
== END 2017-03-08 07:57 | disposition home or self-care (01) ==
LOC: EMR 07:19
DX: J06.9 Acute upper respiratory infection, unspecified (principal); T78.40XA Allergy, unspecified, initial encounter; X58.XXXA Exposure to other specified factors, initial encounter
CPT/HCPCS: 99282

== ENCOUNTER 2017-03-21 20:41 | Emergency (ER) | payer OTHER ==
[~2017-03-21] VITALS: Ht 170.2 cm; Wt 80.7 kg
[2017-03-21 20:55] VITALS: BP 129/78
--- NOTE | 2017-03-21 21:01 | Emergency Room Report ---
History of Present Illness General Chief Complaint: Palpitations Source: Patient Present Illness HPI This is a 51-year-old gentleman with a history of anxiety. He presents with chief complaint of palpitation. He said he has allergies and did PVC. He's been here numerous times for the same thing. No chest pain. No headache. Typical for his previous episode. There is no longer on of PVCs. No syncope or dizziness. Asymptomatic now Allergies: Coded Allergies: No Known Allergies (Unverified , 10/04/16) Patient History Past Medical History: see triage record, old chart reviewed, psych hx Past Surgical History: other Pertinent Family History: none Social History: Denies: drug use Immunizations: other Reviewed Nursing Documentation: PMH: Agreed, PSxH: Agreed Nursing Documentation-PMH Past Medical History: No History, Except For Hx Hypertension: No Hx Pacemaker: No Hx Asthma: No Hx COPD: No Hx Diabetes: No Hx Cancer: No Hx Dialysis: No Hx Neurological Problems: No Hx Cerebrovascular Accident: No Hx Seizures: No Review of Systems Eye: Denies: eye pain, blurred vision ENT: Denies: ear pain, nose congestion, throat swelling Respiratory: Denies: cough, shortness of breath Cardiovascular: Reports: palpitations, Denies: chest pain Gastrointestinal: Denies: abdominal pain, diarrhea, nausea, vomiting Musculoskeletal: Denies: back pain, joint pain Skin: Denies: rash Neurological: Denies: headache, numbness Endocrine: Denies: increased thirst, increased urine Hematologic/Lymphatic: Denies: easy bruising All Other Systems: negative except mentioned in HPI Physical Exam Vital Signs Date Time Temp Pulse Resp B/P (MAP) Pulse Ox O2 Delivery O2 Flow Rate FiO2 03/21/17 20:42 97.3 53 16 129/78 96 Room Air vitals normal Sp02 EP Interpretation: reviewed, normal General Appearance: well appearing, no apparent distress, alert Head: normocephalic, atraumatic Eyes: bilateral eye PERRL, bilateral eye EOMI ENT: hearing grossly normal, normal pharynx Neck: full range of motion, supple, no meningismus Respiratory: chest non-tender, lungs clear, normal breath sounds Cardiovascular #1: regular rate, rhythm, no murmur Gastrointestinal: normal bowel sounds, non tender, no mass, no organomegaly, no bruit, non-distended Musculoskeletal: back normal, gait/station normal, normal range of motion Psychiatric: mood/affect normal Skin: warm/dry Medical Decision Making Diagnostic Impression: Primary Impression: Palpitations ER Course Patient with palpitation and questionable PVCs. EKG normal. No evidence of ACS , PE, dissection to name a few. We'll discharge home. EKG Diagnostic Results EKG Time: 21:01 Rate: normal ST Segments: no acute changes Rhythm Strip Diag. Results Rhythm Strip Time: 21:01 EP Interpretation: yes Rate: 50 Rhythm: NSR, no PVC's, no ectopy Last Vital Signs Date Time Temp Pulse Resp B/P (MAP) Pulse Ox O2 Delivery O2 Flow Rate FiO2 03/21/17 20:42 97.3 53 16 129/78 96 Room Air Status: unchanged Disposition: HOME, SELF-CARE Condition: Stable Patient Instructions: Palpitations Additional Instructions: Followup with your doctor as needed. Return for any concern. ELIAS GRIFFIN M.D. Mar 21, 2017 21:01
--- NOTE | 2017-03-22 18:32 | Cardiology Report ---
APPROVED REPORT EKG Measurement Heart [id number] Sinus bradycardia Otherwise normal ECG
== END 2017-03-21 21:04 | disposition home or self-care (01) ==
LOC: EMR 21:00
DX: R00.2 Palpitations (principal)
CPT/HCPCS: 93005; 99283

== ENCOUNTER 2017-04-09 20:49 | Emergency (ER) | payer OTHER ==
[~2017-04-09] VITALS: Ht 170.2 cm; Wt 80.7 kg
--- NOTE | 2017-04-09 21:08 | Emergency Room Report ---
History of Present Illness General Chief Complaint: Dyspnea/Respdistress Source: Patient, Medical Record Present Illness HPI This is a 22-year-old male with a history of anxiety and frequent ER visits to both [facility] and [facility]. He presents with chief complaint of palpitation active bleeding. This is a chronic problem. He is better now. No nausea no vomiting. No fever or chills. Workup has been negative for cardiac history. No chest pain. No diaphoresis. No dyspnea exertion. Allergies: Coded Allergies: No Known Allergies (Unverified , 10/04/16) Patient History Past Medical History: see triage record, old chart reviewed Past Surgical History: other Pertinent Family History: none Social History: Denies: smoking Immunizations: other Reviewed Nursing Documentation: PMH: Agreed, PSxH: Agreed Nursing Documentation-PMH Hx Hypertension: No Hx Pacemaker: No Hx Asthma: No Hx COPD: No Hx Diabetes: No Hx Cancer: No Hx Dialysis: No Hx Neurological Problems: No Hx Cerebrovascular Accident: No Hx Seizures: No Review of Systems Eye: Denies: eye pain, blurred vision ENT: Denies: ear pain, nose congestion, throat swelling Respiratory: Denies: cough, shortness of breath Cardiovascular: Reports: palpitations, Denies: chest pain Gastrointestinal: Denies: abdominal pain, diarrhea, nausea, vomiting Musculoskeletal: Denies: back pain, joint pain Skin: Denies: rash Neurological: Denies: headache, numbness Endocrine: Denies: increased thirst, increased urine Hematologic/Lymphatic: Denies: easy bruising All Other Systems: negative except mentioned in HPI Physical Exam Vital Signs Date Time Temp Pulse Resp B/P (MAP) Pulse Ox O2 Delivery O2 Flow Rate FiO2 04/09/17 20:55 97.5 53 16 123/78 100 Room Air vitals normal Sp02 EP Interpretation: reviewed, normal General Appearance: well appearing, no apparent distress, alert Head: normocephalic, atraumatic Eyes: bilateral eye PERRL, bilateral eye EOMI ENT: hearing grossly normal, normal pharynx Neck: full range of motion, supple, no meningismus Respiratory: chest non-tender, lungs clear, normal breath sounds Cardiovascular #1: regular rate, rhythm, no murmur Gastrointestinal: normal bowel sounds, non tender, no mass, no organomegaly, no bruit, non-distended Musculoskeletal: back normal, gait/station normal, normal range of motion Psychiatric: mood/affect normal Skin: warm/dry Medical Decision Making Diagnostic Impression: Primary Impression: Palpitations ER Course Patient presents with palpitation. He is in sinus rhythm here. No arrhythmia here. We'll discharge home. He has recent hospital visit. he has IV portillo on his left antecubital the Last Vital Signs Date Time Temp Pulse Resp B/P (MAP) Pulse Ox O2 Delivery O2 Flow Rate FiO2 04/09/17 20:55 97.5 53 16 123/78 100 Room Air Status: improved Disposition: HOME, SELF-CARE Condition: Stable Additional Instructions: Followup with your Dr. in 7 days. Return for any new concern. ELIAS GRIFFIN M.D. Apr 09, 2017 21:08
[2017-04-09 21:26] VITALS: BP 123/78
== END 2017-04-09 21:26 | disposition home or self-care (01) ==
LOC: EMR 21:18
DX: R20.2 Paresthesia of skin (principal)
CPT/HCPCS: 99283

== ENCOUNTER 2017-04-14 18:57 | Emergency (ER) | payer OTHER ==
[~2017-04-14] VITALS: Ht 170.2 cm; Wt 80.7 kg
--- NOTE | 2017-04-14 20:31 | Emergency Room Report ---
History of Present Illness General Chief Complaint: General Complaint Present Illness HPI 52 YO Male presents to the emergency department complaining of episode of palpitations lasting several seconds. after eating breakfast this am. pt. reports he had increased anxiety because of this. pt. reports normal cardiac work up by coating manager. pt. states he has taken Atenolol today. Denies fevers , chills, cough, swelling of LE's, N/V. Denies CP, LOC, AMS, dizziness, Changes in Vision, Sensation, paresthesias, or a sudden severe headache. Allergies: Coded Allergies: No Known Allergies (Unverified , 10/04/16) Patient History Past Medical History: see triage record Past Surgical History: none Pertinent Family History: none Immunizations: UTD Reviewed Nursing Documentation: PMH: Agreed, PSxH: Agreed Nursing Documentation-PMH Hx Hypertension: No Hx Pacemaker: No Hx Asthma: No Hx COPD: No Hx Diabetes: No Hx Cancer: No Hx Dialysis: No Hx Neurological Problems: No Hx Cerebrovascular Accident: No Hx Seizures: No Review of Systems All Other Systems: negative except mentioned in HPI Physical Exam Vital Signs Date Time Temp Pulse Resp B/P (MAP) Pulse Ox O2 Delivery O2 Flow Rate FiO2 04/14/17 19:18 97.5 49 14 124/82 97 Room Air Sp02 EP Interpretation: reviewed, normal General Appearance: no apparent distress, alert, GCS 15, non-toxic Head: normocephalic, atraumatic Eyes: bilateral eye normal inspection, bilateral eye PERRL ENT: hearing grossly normal, normal voice Neck: full range of motion Respiratory: lungs clear, normal breath sounds, speaking full sentences Cardiovascular #1: regular rate, rhythm, normal capillary refill Gastrointestinal: non tender, soft Rectal: deferred Musculoskeletal: back normal, gait/station normal, normal range of motion Neurologic: alert, oriented x3, responsive, motor strength/tone normal, sensory intact, normal gait, speech normal Skin: normal color, no rash, warm/dry, well hydrated Medical Decision Making PA Attestation Dr. phillips is my supervising Physician whom patient management has been discussed with. Diagnostic Impression: Primary Impression: Palpitations Additional Impression: Non-compliance ER Course 52 YO Male presents to the emergency department complaining of episode of palpitations lasting several seconds. after eating breakfast this am. pt. reports he had increased anxiety because of this. pt. reports normal cardiac work up by coating manager. pt. states he has taken Atenolol today. Denies fevers , chills, cough, swelling of LE's, N/V. Denies CP, LOC, AMS, dizziness, Changes in Vision, Sensation, paresthesias, or a sudden severe headache. Ddx considered but are not limited to AR, arrhythmia, hypokalemia, anxiety reaction. thyroid dysfunction just to name a few. Vital signs: are WNL, pt. is afebrile H&PE are most consistent with recurrent evaluations for subjective palpitations. ORDERS: - - EK BPM Sinus bradycardic - no acute ST changes reviewed by Dr. Diop, this interpretation was scribed by INDIR[facility] ED INTERVENTIONS: none required at this time. PT EDUCATION: - encouraged pt. to follow up with coating manager, psych, and pcp. pt given resource information. -I do not suspect an emergent condition at this time. With current presentation , pt. is stable for close outpatient follow up and conservative treatment. D/ w pt. to return promptly to ED with worsening or new symptoms.- Pt. (and or responsible democrat) verbalizes' understanding and agreement with proposed treatment plan. DISCHARGE: At this time pt. is stable for d/c to home. Will provide printed patient care instructions, and any necessary prescriptions. Care plan and follow up instructions have been discussed with the patient prior to discharge. EKG Diagnostic Results EP Interpretation: Dr. Diop Rate: bradycardiac - 47 Rhythm: NSR ST Segments: no acute changes ASA given to the pt in ED: No PA Scribe Text this interpretation was scribed by INDIRA [facility] Last Vital Signs Date Time Temp Pulse Resp B/P (MAP) Pulse Ox O2 Delivery O2 Flow Rate FiO2 04/14/17 19:18 97.5 49 14 124/82 97 Room Air Disposition: HOME, SELF-CARE Condition: Stable Additional Instructions: As previously instructed by myself And other providers after being evaluated for palpitations. You need to followup with a coating manager. Negligence of follow up instructions can cause worsening or a delay in diagnosis. I also recommend psychiatric followup to include : Evaluation for Hypochondriac / Generalized Anxiety Disorder. -- Pls review [facility] RESOURCE INFORMATION. Follow up with a Primary Care Provider in 3-5 days, even if your symptoms have resolved. Return sooner to ED if new symptoms occur, or current symptoms become worse. - Please note that this Emergency Department Report was dictated using [employer] sawyer technology software, occasionally this can lead to erroneous entry secondary to interpretation by the dictation equipment. Nery Eats Apr 14, 2017 20:31
[2017-04-14 20:39] VITALS: BP 119/83
[2017-04-14 20:40] VITALS: BP 119/83
--- NOTE | 2017-04-22 17:17 | Cardiology Report ---
APPROVED REPORT EKG Measurement Heart [id number] Sinus bradycardia Otherwise normal ECG
== END 2017-04-14 20:38 | disposition home or self-care (01) ==
LOC: EMR 19:45
DX: R00.2 Palpitations (principal); Z91.14 Patient's other noncompliance with medication regimen
CPT/HCPCS: 93005; 99283

== ENCOUNTER 2017-05-30 07:48 | Emergency (ER) | payer OTHER ==
[~2017-05-30] VITALS: Ht 170.2 cm; Wt 80.7 kg
[2017-05-30] MEDS ORDERED: ACETAMINOPHEN-1 EAC1 ORAL (08:35)
[2017-05-30 08:40] VITALS: BP 124/80
--- NOTE | 2017-05-30 08:50 | Emergency Room Report ---
History of Present Illness General Chief Complaint: Upper Respiratory Illness Source: Patient Present Illness HPI 52-year-old male with 2 days of dry cough. No associated fever or chills or myalgias. No associated asthma or COPD history. No sick contacts. Denies chest pain or shortness of breath. Has not taken any dani-ofs-cyhjldn medications. Allergies: Coded Allergies: No Known Allergies (Unverified , 10/04/16) Patient History Past Medical History: see triage record, old chart reviewed Past Surgical History: none Pertinent Family History: none Social History: Denies: smoking, alcohol use, drug use Immunizations: UTD Reviewed Nursing Documentation: PMH: Agreed, PSxH: Agreed Nursing Documentation-PMH Hx Hypertension: No Hx Pacemaker: No Hx Asthma: No Hx COPD: No Hx Diabetes: No Hx Cancer: No Hx Dialysis: No Hx Neurological Problems: No Hx Cerebrovascular Accident: No Hx Seizures: No Review of Systems All Other Systems: negative except mentioned in HPI Physical Exam Vital Signs Date Time Temp Pulse Resp B/P (MAP) Pulse Ox O2 Delivery O2 Flow Rate FiO2 05/30/17 07:58 97.9 54 19 121/76 100 Room Air 05/30/17 08:05 98 Sp02 EP Interpretation: reviewed, normal General Appearance: normal inspection, well appearing, no apparent distress, alert, GCS 15, non-toxic Head: normocephalic, atraumatic Eyes: bilateral eye PERRL, bilateral eye EOMI ENT: normal ENT inspection, hearing grossly normal, normal pharynx, no angioedema, normal voice, TMs + canals normal, uvula midline, moist mucus membranes Neck: normal inspection, full range of motion, supple, thyroid normal, no meningismus, no bony tend Respiratory: normal inspection, lungs clear, normal breath sounds, no rhonchi, no respiratory distress, no retraction, no accessory muscle use, no wheezing, speaking full sentences Cardiovascular #1: regular rate, rhythm, no edema, no JVD, normal capillary refill Gastrointestinal: normal inspection, normal bowel sounds, non tender, soft, no mass, no peritonitis, non-distended, no guarding, no hernia, no pulsatile mass Genitourinary: no CVA tenderness Musculoskeletal: normal inspection, back normal, normal range of motion, no calf tenderness, pelvis stable, Staci's Sign negative Neurologic: normal inspection, alert, oriented x3, responsive, field technician III-XII nml as tested, motor strength/tone normal, cerebellar normal, normal gait, speech normal Psychiatric: normal inspection, judgement/insight normal, mood/affect normal, no suicidal/homicidal ideation, no delusions Skin: normal inspection, normal color, no rash Lymphatic: normal inspection, no adenopathy Medical Decision Making Diagnostic Impression: Primary Impression: Upper respiratory infection Qualified Codes: J06.9 - Acute upper respiratory infection, unspecified ER Course 52-year-old male, well appearing, vital signs stable. Afebrile. Nonseptic appearing. likely acute bronchitis. not in asthma exacerbation No wheezing or rhonchi on exam Recommended albuterol however patient states he doesn't want to use that medication. Was given Tylenol with codeine primary care followup ER course: Patient has remained stable during ED stay. Disposition: Patient is to be discharged to home. Prescriptions given are T#3 Patient is instructed to follow up with their primary care doctor within 5 days. Strict return precautions discussed with patient such as fever, chills, worsening/severe pain, nausea, vomiting, which may indicate severe illness. Patient verbalizes understanding and agrees with plan. Please note that this Emergency Department Report was dictated using [employer] dancer technology software, occasionally this can lead to erroneous entry secondary to interpretation by the dictation equipment Last Vital Signs Date Time Temp Pulse Resp B/P (MAP) Pulse Ox O2 Delivery O2 Flow Rate FiO2 05/30/17 08:40 97.9 80 20 124/80 100 Room Air 98 Status: improved Disposition: HOME, SELF-CARE Condition: Improved Scripts Acetaminophen With Codeine (T#3) (TYLENOL #3 TAB*) Y Tab 1 TAB ORAL Q4H Y for For Cough for 7 Days, #20 TAB Prov: BRAVO MORGAN M.D. 05/30/17 Referrals: THOMAS DUFFY (PCP) Patient Instructions: Upper Respiratory Infection, Adult BRAVO MORGAN M.D. May 30, 2017 08:49
[2017-05-31] MEDS ORDERED: ALBUTEROL SULF8.5 GM INH (04:44)
[2017-05-31] MEDS ORDERED: PREDNISONE20 MG ORAL (04:44)
[2017-05-31] MEDS ORDERED: PROMETHAZINE-C118 M1 ORAL (04:44)
== END 2017-05-30 08:40 | disposition home or self-care (01) ==
LOC: EMR 08:16
DX: J06.9 Acute upper respiratory infection, unspecified (principal)
CPT/HCPCS: 99283

== ENCOUNTER 2017-05-31 04:09 | Emergency (ER) | payer OTHER ==
[~2017-05-31] VITALS: Ht 170.2 cm; Wt 80.7 kg
[~2017-05-31 04:09] MED LIST changes: +ACETAMINOPHEN-1 EAC1 ORAL
[2017-05-31 04:19] VITALS: BP 128/81
[2017-05-31] MEDS ORDERED: PROMETHAZINE-C118 M1 ORAL (04:44)
[2017-05-31] MEDS ORDERED: ALBUTEROL SULF8.5 GM INH (04:44)
[2017-05-31] MEDS ORDERED: PREDNISONE20 MG ORAL (04:44)
[2017-05-31 04:54] VITALS: BP 122/75
--- NOTE | 2017-06-01 07:50 | Emergency Room Report ---
History of Present Illness General Chief Complaint: Upper Respiratory Illness Present Illness HPI 52-year-old male presents ED for evaluation. Patient presents with cough. Cough is dry x3 days. Denies fevers or chills. Patient has history of HIV but is compliant with his medications. Patient was seen here yesterday and was noted have bronchitis. Patient was offered prescription for albuterol but he declined. Patient states his heart was also racing. Patient states he has history of palpitations and is on atenolol. Denies chest pain or shortness of breath. Denies any contacts or recent travel. No other aggravating relieving factors. Denies any other associated symptoms Allergies: Coded Allergies: No Known Allergies (Unverified , 10/04/16) Patient History Past Medical History: HIV Past Surgical History: none Pertinent Family History: none Social History: Denies: smoking, alcohol use, drug use Immunizations: UTD Reviewed Nursing Documentation: PMH: Agreed, PSxH: Agreed Nursing Documentation-PMH Hx Hypertension: No Hx Pacemaker: No Hx Asthma: No Hx COPD: No Hx Diabetes: No Hx Cancer: No Hx Dialysis: No Hx Neurological Problems: No Hx Cerebrovascular Accident: No Hx Seizures: No Review of Systems All Other Systems: negative except mentioned in HPI Physical Exam Vital Signs Date Time Temp Pulse Resp B/P (MAP) Pulse Ox O2 Delivery O2 Flow Rate FiO2 05/31/17 04:15 98.2 83 15 128/81 100 Room Air Sp02 EP Interpretation: reviewed, normal General Appearance: no apparent distress, alert, GCS 15, non-toxic Head: normocephalic, atraumatic Eyes: bilateral eye normal inspection, bilateral eye PERRL ENT: hearing grossly normal, normal pharynx, no angioedema, normal voice Neck: full range of motion, supple/symm/no masses Respiratory: chest non-tender, lungs clear, normal breath sounds, speaking full sentences Cardiovascular #1: regular rate, rhythm, no edema Cardiovascular #2: 2+ carotid (R), 2+ carotid (L), 2+ radial (R), 2+ radial (L) , 2+ dorsalis pedis (R), 2+ dorsalis pedis (L) Gastrointestinal: normal bowel sounds, non tender, soft, non-distended, no guarding, no rebound Rectal: deferred Genitourinary: normal inspection, no CVA tenderness Musculoskeletal: back normal, gait/station normal, normal range of motion, non- tender Neurologic: alert, oriented x3, responsive, motor strength/tone normal, sensory intact, speech normal Psychiatric: judgement/insight normal, memory normal, mood/affect normal, no suicidal/homicidal ideation Reflexes: 3+ bicep (R), 3+ bicep (L), 3+ tricep (R), 3+ tricep (L), 3+ knee (R) , 3+ knee (L) Skin: normal color, no rash, warm/dry, well hydrated Lymphatic: no adenopathy Medical Decision Making Diagnostic Impression: Primary Impression: Bronchitis ER Course Hospital Course 52-year-old male presents to ED complaining of cough x 3 days Differential diagnoses include: URI, pharyngitis, otitis media, asthma Clinical course Patient placed on stretcher. After initial history, physical exam reveals a male in no acute distress. Bilateral TM unremarkable. No pharyngeal erythema. No tonsillar exudates. No lymphadenopathy. lungs clear. abdomen soft. on vitals HR is normal. no evidence of palpitations at this time. Patient is well-known to [facility], has been here multiple times for palpitations. Chest x-ray unremarkable. Insurance is findings consistent with bronchitis. Patient declines inhaler but I will prescribe him one regardless Diagnosis - bronchitis Stable and discharged home, promethazine/codeine, albuterol. Instructed to followup with PMD. Return to ED if symptoms recur or worsen Chest X-Ray Diagnostic Results Chest X-Ray Diagnostic Results : Chest X-Ray Ordered: Yes # of Views/Limited/Complete: 1 View Indication: Other - cough EP Interpretation: Yes Interpretation: no consolidation, no effusion, no pneumothorax, no acute cardiopulmonary disease Impression: No acute disease Electronically Signed by: Electronically signed by Shelton Diop MD Last Vital Signs Date Time Temp Pulse Resp B/P (MAP) Pulse Ox O2 Delivery O2 Flow Rate FiO2 05/31/17 04:54 98.2 81 15 122/75 100 Room Air Status: improved Disposition: HOME, SELF-CARE Condition: Stable Scripts Codeine/Promethazine Hcl* (PROMETHAZINE-CODEINE SYRUP*) 118 Ml Syrup 5 ML ORAL Q6H Y for For Cough, #118 ML 0 Refills Prov: SHELTON DIOP M.D. 05/31/17 Prednisone* (PREDNISONE*) 20 Mg Tablet 40 MG ORAL DAILY, #10 TAB Prov: SHELTON DIOP M.D. 05/31/17 Albuterol Sulfate* (ALBUTEROL SULFATE MDI*) 8.5 Gm Hfa.aer.ad 2 PUFF INH Q4H Y for cough/wheezing, #1 EA 0 Refills Prov: SHELTON DIOP M.D. 05/31/17 Patient Instructions: Acute Bronchitis, [id number] SHELTON DIOP M.D. Jun 01, 2017 07:50
--- NOTE | 2017-06-02 16:06 | Diagnostic Imaging Report ---
Indication: Cough Technique: XRAY Chest 1v Comparison: 11/01/2014 Findings: The cardiomediastinal silhouette is within normal limits. There is no focal consolidation, pneumothorax or pleural effusion. Degenerative changes of the spine are noted. Impression: No acute cardiopulmonary disease.
== END 2017-05-31 04:54 | disposition home or self-care (01) ==
LOC: EMR 04:28
DX: J40 Bronchitis, not specified as acute or chronic (principal)
CPT/HCPCS: 71045; 99284

== ENCOUNTER 2017-06-03 21:50 | Emergency (ER) | payer OTHER ==
[~2017-06-03] VITALS: Ht 170.2 cm; Wt 79.4 kg
[~2017-06-03 21:50] MED LIST changes: +ALBUTEROL SULF8.5 GM INH; +PREDNISONE20 MG ORAL; +PROMETHAZINE-C118 M1 ORAL
[2017-06-03 21:57] VITALS: BP 139/89
[2017-06-03] MEDS ORDERED: AZITHROMYCIN250 MG ORAL (21:58)
[2017-06-03] MEDS ORDERED: TESSALON PERLE100 MG ORAL (22:07)
[2017-06-03 22:36] VITALS: BP 131/85
--- NOTE | 2017-06-03 23:53 | Emergency Room Report ---
History of Present Illness General Chief Complaint: Upper Respiratory Illness Source: Patient, Medical Record Present Illness HPI 52-year-old male p/w cough for several weeks. Patient has been in the emergency room multiple times for same issue.. Pt states cough is dry. Denies fever chills sob or chest pain. Denies runny nose or myalgias. No sick contacts or recent travel. Patient does not smoke. He has been eating and drinking normally. He came back to the emergency room because he states that his cough is very annoying when he sleeps. Today it is better. It is worsened when he lies flat Allergies: Coded Allergies: No Known Allergies (Unverified , 10/04/16) Patient History Past Medical History: see triage record Past Surgical History: none Pertinent Family History: none Reviewed Nursing Documentation: PMH: Agreed, PSxH: Agreed Nursing Documentation-PMH Past Medical History: No History, Except For Hx Hypertension: No Hx Pacemaker: No Hx Asthma: No Hx COPD: No Hx Diabetes: No Hx Cancer: No Hx Dialysis: No Hx Neurological Problems: No Hx Cerebrovascular Accident: No Hx Seizures: No Review of Systems All Other Systems: negative except mentioned in HPI Physical Exam Vital Signs Date Time Temp Pulse Resp B/P (MAP) Pulse Ox O2 Delivery O2 Flow Rate FiO2 06/03/17 21:53 98.1 73 16 139/89 97 Room Air Sp02 EP Interpretation: reviewed, normal General Appearance: normal inspection, well appearing, no apparent distress, alert, GCS 15, non-toxic Head: normocephalic, atraumatic Eyes: bilateral eye normal inspection, bilateral eye PERRL, bilateral eye EOMI ENT: normal ENT inspection, normal pharynx, normal voice, moist mucus membranes Neck: normal inspection, full range of motion, supple Respiratory: normal inspection, lungs clear, normal breath sounds, no respiratory distress, no retraction, no wheezing, speaking full sentences, chest symmetrical Cardiovascular #1: normal inspection, regular rate, rhythm, no edema, normal capillary refill Cardiovascular #2: 2+ radial (R), 2+ radial (L) Gastrointestinal: normal inspection, non tender, soft, non-distended, no guarding Genitourinary: no CVA tenderness Musculoskeletal: normal inspection, back normal, normal range of motion, non- tender Neurologic: normal inspection, alert, oriented x3, responsive, motor strength/ tone normal, sensory intact, normal gait, speech normal Psychiatric: normal inspection, judgement/insight normal, memory normal Skin: normal inspection, normal color, no rash, warm/dry, well hydrated, normal turgor Medical Decision Making Diagnostic Impression: Primary Impression: Cough ER Course 52-year-old male with cough DDX: Bronchitis. Patient had multiple ED visits, had x-rays that were negative Plan: None ER course: Patient remains nontoxic, not in resp distress. Disposition: Patient is to be discharged home with a prescription of Tessalon Perles Strict precautions discussed with patient on when to return to the emergency room including hemoptysis, high fevers, chills, SOB, chest pain which may indicate severe illness. Patient is to follow up with their primary care doctor within 5 days. Patient agrees with plan. Please note that this Emergency Department Report was dictated using [employer] technology software, occasionally this can lead to erroneous entry secondary to interpretation by the dictation equipment Last Vital Signs Date Time Temp Pulse Resp B/P (MAP) Pulse Ox O2 Delivery O2 Flow Rate FiO2 06/03/17 21:53 98.1 73 16 139/89 97 Room Air Disposition: HOME, SELF-CARE Condition: Stable Scripts Benzonatate* (TESSALON PERLE*) 100 Mg Capsule 100 MG ORAL THREE TIMES A DAY, #21 PERLE 0 Refills Prov: Victoria Lima M.D. 06/03/17 Referrals: THOMAS DUFFY (PCP) Patient Instructions: Cough, Adult Victoria Lima M.D. Jun 03, 2017 23:53
== END 2017-06-03 22:36 | disposition home or self-care (01) ==
LOC: EMR 22:05
DX: R05 Cough (principal)
CPT/HCPCS: 99283

== ENCOUNTER 2017-06-08 12:34 | Emergency (ER) | payer OTHER ==
[~2017-06-08] VITALS: Ht 170.2 cm; Wt 77.1 kg
[~2017-06-08 12:34] MED LIST changes: +AZITHROMYCIN250 MG ORAL; +TESSALON PERLE100 MG ORAL
[2017-06-08 12:50] VITALS: BP 123/78
--- NOTE | 2017-06-08 13:00 | Emergency Room Report ---
History of Present Illness General Chief Complaint: General Complaint Present Illness HPI 52-year-old male presents to the emergency department complaining of burn to the roof of his mouth 8/10 in severity pain. Reports he sustained burn to the roof of his mouth this morning after drinking hot tea. He reports that he feels discomfort and that some of the skin is peeling. Patient denies ervin to the throat, wheezing, swelling of the lips or time or difficulty breathing. Patient denies external ervin to the lips. Denies CP, Palpitations, LOC, AMS, dizziness, Changes in Vision, Sensation, paresthesias, or a sudden severe headache. Allergies: Coded Allergies: No Known Allergies (Unverified , 10/04/16) Patient History Past Medical History: see triage record Past Surgical History: none Pertinent Family History: none Immunizations: UTD Reviewed Nursing Documentation: PMH: Agreed, PSxH: Agreed Nursing Documentation-PMH Hx Hypertension: No Hx Pacemaker: No Hx Asthma: No Hx COPD: No Hx Diabetes: No Hx Cancer: No Hx Dialysis: No Hx Neurological Problems: No Hx Cerebrovascular Accident: No Hx Seizures: No Review of Systems All Other Systems: negative except mentioned in HPI Physical Exam Vital Signs Date Time Temp Pulse Resp B/P (MAP) Pulse Ox O2 Delivery O2 Flow Rate FiO2 06/08/17 12:41 98.4 69 20 123/78 100 Room Air Sp02 EP Interpretation: reviewed, normal General Appearance: no apparent distress, alert, GCS 15, non-toxic Head: normocephalic, atraumatic Eyes: bilateral eye normal inspection, bilateral eye PERRL ENT: hearing grossly normal, normal pharynx, no angioedema, normal voice, moist mucus membranes, other - localized erythema to the distal hard palate just behind upper front teeth. no blisters or vesicles noted. Neck: full range of motion Respiratory: chest non-tender, lungs clear, normal breath sounds, speaking full sentences Cardiovascular #1: regular rate, rhythm Rectal: deferred Musculoskeletal: back normal, gait/station normal, normal range of motion Neurologic: alert, oriented x3, responsive, motor strength/tone normal, sensory intact, normal gait, speech normal, grossly normal Psychiatric: judgement/insight normal Skin: normal color, no rash, warm/dry, well hydrated Medical Decision Making PA Attestation Dr. Abreu is my supervising Physician whom patient management has been discussed with. Diagnostic Impression: Primary Impression: Mouth burn Qualified Codes: T28.0XXA - Burn of mouth and pharynx, initial encounter ER Course 52-year-old male presents to the emergency department complaining of burn to the roof of his mouth 8/10 in severity pain. Reports he sustained burn to the roof of his mouth this morning after drinking hot tea. He reports that he feels discomfort and that some of the skin is peeling. Patient denies ervin to the throat, wheezing, swelling of the lips or time or difficulty breathing. Patient denies external ervin to the lips. Denies CP, Palpitations, LOC, AMS, dizziness, Changes in Vision, Sensation, paresthesias, or a sudden severe headache. Ddx considered but are not limited to: stomatitis, up from his ulcers, oral thrush, HFM, koplik spots, HSV, dental abscess, PIPE OR STEAM FITTER FURNACE INSTALLER, tonsiliths., burn Vital signs: are WNL, pt. is afebrile H&PE are most consistent with 1st degree burn to the roof of the mouth- distal upper hard palate covering less than 1% BSA. no evidence of airway ervin or impending airway compromise. ORDERS: none required at this time, the diagnosis is clinical ED INTERVENTIONS: --Pt declines pain medications. DISCHARGE: At this time pt. is stable for d/c to home. Will provide printed patient care instructions, and any necessary prescriptions. Care plan and follow up instructions have been discussed with the patient prior to discharge. Last Vital Signs Date Time Temp Pulse Resp B/P (MAP) Pulse Ox O2 Delivery O2 Flow Rate FiO2 06/08/17 12:50 98.4 20 123/78 100 Room Air 06/08/17 12:41 69 Scripts Chlorhexidine Gluconate (CHLORHEXIDINE GLUCONATE) 473 Ml Mouthwash 15 ML MM BID, #473 ML Prov: Nery East P.A. 06/08/17 Acetaminophen* (TYLENOL EXTRA STRENGTH*) 500 Mg Tablet 500 MG ORAL Q6H Y for Mild Pain/Temp > 100.5, #30 TAB 0 Refills Prov: Nery East P.A. 06/08/17 Benzocaine (Oral Pain Reliever) 9.4 Gm Cream..g. 1 APPLIC MM QID, #9.4 GM Prov: Nery East.AAngus 06/08/17 Patient Instructions: Benzocaine mouth gel, ointment, solution, or dental paste Additional Instructions: Take medications as directed. Follow up with a Primary Care Provider in 3-5 days, even if your symptoms have resolved. --Please review list of primary care clinics, if you do not already have a primary care provider Return sooner to ED if new symptoms occur, or current symptoms become worse. - Please note that this Emergency Department Report was dictated using [employer] fertilizer technology software, occasionally this can lead to erroneous entry secondary to interpretation by the dictation equipment. Nery East Jun 08, 2017 13:00
[2017-06-08] MEDS ORDERED: ORAL PAIN RELI9.4 GM MM (13:05)
[2017-06-08] MEDS ORDERED: TYLENOL EXTRA500 MG ORAL (13:05)
[2017-06-08] MEDS ORDERED: CHLORHEXIDINE473 ML MM (13:05)
[2017-06-08 13:20] VITALS: BP 123/78
== END 2017-06-08 13:20 | disposition home or self-care (01) ==
LOC: EMR 13:11
DX: T28.0XXA Burn of mouth and pharynx, initial encounter (principal); X10.0XXA Contact with hot drinks, initial encounter; Y92.9 Unspecified place or not applicable
CPT/HCPCS: 99283

== ENCOUNTER 2017-06-15 14:06 | Emergency (ER) | payer OTHER ==
[~2017-06-15] VITALS: Ht 170.2 cm; Wt 79.4 kg
[~2017-06-15 14:06] MED LIST changes: +CHLORHEXIDINE473 ML MM; +ORAL PAIN RELI9.4 GM MM; +TYLENOL EXTRA500 MG ORAL
[2017-06-15] MEDS ORDERED: IBUPROFEN400 MG ORAL (14:26)
--- NOTE | 2017-06-15 14:26 | Emergency Room Report ---
History of Present Illness General Chief Complaint: To Be Triaged Source: Patient Present Illness HPI 52-year-old male patient presents ER complaining of condom stuck in throat Patient states while eating a cookie, became lodged in throat but since that time he has been able to swallow the pecan. Patient has no complaints of pain currently. Patient did not take any medications for resolution of symptoms. Patient states he is able to eat and drink currently. Patient denies fever, throat pain, coughing up blood, SOB, chest pain. Allergies: Coded Allergies: No Known Allergies (Unverified , 10/04/16) Patient History Past Medical History: see triage record Immunizations: UTD Reviewed Nursing Documentation: PMH: Agreed, PSxH: Agreed Nursing Documentation-PMH Hx Hypertension: No Hx Pacemaker: No Hx Asthma: No Hx COPD: No Hx Diabetes: No Hx Cancer: No Hx Dialysis: No Hx Neurological Problems: No Hx Cerebrovascular Accident: No Hx Seizures: No Review of Systems All Other Systems: negative except mentioned in HPI Physical Exam Vital Signs Date Time Temp Pulse Resp B/P (MAP) Pulse Ox O2 Delivery O2 Flow Rate FiO2 06/15/17 14:51 97.5 55 16 114/75 98 Room Air Sp02 EP Interpretation: reviewed, normal General Appearance: no apparent distress, alert, GCS 15, non-toxic Head: normocephalic, atraumatic Eyes: bilateral eye normal inspection, bilateral eye PERRL ENT: hearing grossly normal, normal pharynx, no angioedema, normal voice, uvula midline, moist mucus membranes, other - no blood Neck: full range of motion, supple/symm/no masses Respiratory: chest non-tender, lungs clear, normal breath sounds, no accessory muscle use, no wheezing, speaking full sentences, other - no stridor Cardiovascular #1: regular rate, rhythm Cardiovascular #2: 2+ carotid (R), 2+ carotid (L) Musculoskeletal: back normal, gait/station normal, normal range of motion Neurologic: alert, oriented x3, responsive, motor strength/tone normal, sensory intact, speech normal Psychiatric: mood/affect normal Skin: normal color, no rash, warm/dry, well hydrated Medical Decision Making PA Attestation Dr. Diop is my supervising Physician whom patient management has been discussed with. Diagnostic Impression: Primary Impression: Sore throat ER Course Pt. presents to the ED c/o pecan stuck in throat. Ddx considered but are not limited to sore throat, foreign body aspiration, throat contusion, achalasia. Vital signs: are WNL, pt. is afebrile ORDERS: none required at this time, the diagnosis is clinical ED INTERVENTIONS: None required at this time. Patient reports no complaints of throat pain, states he is able to eat and drink. DISCHARGE: At this time pt. is stable for d/c to home. Will provide printed patient care instructions, and any necessary prescriptions. Patient instructed to follow up with Primary Care Provider to discuss further follow up and possible referrals. Care plan and follow up instructions have been discussed with the patient prior to discharge Disposition: HOME, SELF-CARE Condition: Stable Scripts Ibuprofen* (MOTRIN*) 400 Mg Tablet 400 MG ORAL Q8H Y for For Pain, #30 TAB 0 Refills Prov: Henry Perez 06/15/17 Patient Instructions: Sore Throat, [id number] Additional Instructions: Followup with primary care provider in 3 -5 days. Discuss referral to EENT. Take medications as directed. Patient questions asked and answered. ER precautions given, patient instructed to return to ER immediately for any new or worsening of symptoms. Henry Perez Jun 15, 2017 14:26
[2017-06-15 14:55] VITALS: BP 114/75
== END 2017-06-15 15:00 | disposition home or self-care (01) ==
LOC: EMR 15:00
DX: J02.9 Acute pharyngitis, unspecified (principal)
CPT/HCPCS: 99283

== ENCOUNTER 2017-07-26 11:10 | Emergency (ER) | payer OTHER ==
[~2017-07-26] VITALS: Ht 170.2 cm; Wt 81.6 kg
[2017-07-26 11:30] VITALS: BP 115/72
[2017-07-26 12:13] LABS: ANION GAP 10 mmol/L (5-15); BLOOD UREA NITROGEN 20 mg/dL (7-18); CALCIUM 8.9 MG/DL (8.5-10.1); CARBON DIOXIDE 26 MMOL/L (21-32); CHLORIDE 103 MMOL/L (98-107); CREATININE 1.1 MG/DL (0.55-1.30); POTASSIUM 3.8 MMOL/L (3.5-5.1); SODIUM 139 MMOL/L (136-145)
[2017-07-26 12:18] LABS: ALANINE AMINOTRANSFERASE 45 U/L (12-78); ALBUMIN 3.7 G/DL (3.4-5.0); ALKALINE PHOSPHATASE 72 U/L (46-116); ASPARTATE AMINO TRANSFERASE 39 U/L (15-37); BILIRUBIN,TOTAL 0.4 MG/DL (0.2-1.0)
[2017-07-26 12:31] LABS: BASOPHILS % (AUTO) 0.6 % (0.0-2.0); HEMATOCRIT 44.4 % (42.0-52.0); HEMOGLOBIN 15.9 G/DL (14.2-18.0); LYMPHOCYTES % (AUTO) 42.8 % (20.0-45.0); MEAN CORPUSCULAR VOLUME 92 FL (80-99); MONOCYTES % (AUTO) 6.6 % (1.0-10.0); PLATELET COUNT 198 K/UL (150-450); RED CELL DISTRIBUTION WIDTH 11.6 % (11.6-14.8); WHITE BLOOD COUNT 5.7 K/UL (4.8-10.8)
--- NOTE | 2017-07-26 12:31 | Emergency Room Report ---
History of Present Illness General Chief Complaint: Pain Source: Patient Present Illness HPI 52-year-old male here for right thumb pain. Patient states that he didn't hit, 2 days ago, now has since been having pain with movement. However states that he still been able to use it without any additional No other complaints Allergies: Coded Allergies: No Known Allergies (Unverified , 10/04/16) Patient History Past Medical History: see triage record Past Surgical History: none Pertinent Family History: none Reviewed Nursing Documentation: PMH: Agreed, PSxH: Agreed Nursing Documentation-PMH Hx Hypertension: No Hx Pacemaker: No Hx Asthma: No Hx COPD: No Hx Diabetes: No Hx Cancer: No Hx Dialysis: No Hx Neurological Problems: No Hx Cerebrovascular Accident: No Hx Seizures: No Review of Systems All Other Systems: negative except mentioned in HPI Physical Exam Vital Signs Date Time Temp Pulse Resp B/P (MAP) Pulse Ox O2 Delivery O2 Flow Rate FiO2 07/26/17 11:20 98.1 67 18 120/77 96 Room Air 98.1 Sp02 EP Interpretation: reviewed, normal General Appearance: alert, GCS 15, non-toxic, mild distress Head: normocephalic - 1 cm non-gaping superficial abrasion/laceration noted to right forehead Eyes: bilateral eye normal inspection, bilateral eye PERRL, bilateral eye EOMI ENT: normal ENT inspection, normal pharynx, normal voice, moist mucus membranes Neck: normal inspection, full range of motion, supple Respiratory: normal inspection, lungs clear, normal breath sounds, no respiratory distress, no retraction, no wheezing, speaking full sentences, chest symmetrical Cardiovascular #1: normal inspection, regular rate, rhythm, no edema, normal capillary refill Cardiovascular #2: 2+ radial (R), 2+ radial (L) Gastrointestinal: normal inspection, non tender, soft, non-distended, no guarding Genitourinary: no CVA tenderness Musculoskeletal: normal inspection, back normal, normal range of motion, non- tender, other - Right thumb nontender throughout, full range of motion, no signs of tendon injury, good pinch grasp, no laxity Neurologic: normal inspection, alert, oriented x3, responsive, data administrator III-XII nml as tested, motor strength/tone normal, sensory intact, normal gait, speech normal Psychiatric: judgement/insight normal, memory normal, no suicidal/homicidal ideation, no delusions, anxious, other - flat affect Skin: normal inspection, normal color, no rash, warm/dry, well hydrated, normal turgor Medical Decision Making Diagnostic Impression: Primary Impression: Syncope Additional Impressions: Forehead abrasion Thumb pain ER Course 52-year-old male with right thumb pain DDX: Unremarkable physical exam, good strength throughout, no concern with contusion or even ligamentous injury given patient has benign exam Plan: Pain control ER course: Patient was sitting in chair, was talking to the nurse, stated that he felt very dizzy, he forcefully fell forward and then to the right, sustained an abrasion to his right head, did not lose consciousness and he talked immediately. ? Possible vasovagal syncope there is no seizure-like activity Patient has been to the emergency room multiple times in the past Has remained awake alert, no neurological signs or symptoms Wound on right forehead was cleaned irrigated bacitracin and Steri-Strips placed. No laceration repair required at this time, wound is not gaping For his thumb, he was offered a thumb spica for comfort however refusing at this time states that it does not hurt and he is able to move it without difficulty Disposition: Patient is to be discharged to home. Patient is instructed to follow up with their primary care doctor within 5 days. Please note that this Emergency Department Report was dictated using [employer]irector of blood technology software, occasionally this can lead to erroneous entry secondary to interpretation by the dictation equipment EKG Diagnostic Results EP Interpretation: Yes Rate: normal Rhythm: NSR ST Segments: No acute changes ASA given to patient: No Laboratory Tests Test 07/26/17 11:45 07/26/17 12:15 Urine Color Yellow Urine Appearance Clear Urine pH 5 (4.5-8.0) Urine Specific [place] 1.025 (1.005-1.035) Urine Protein 1+ (NEGATIVE) H Urine Glucose (UA) Negative (NEGATIVE) Urine Ketones 1+ (NEGATIVE) H Urine Occult Blood 1+ (NEGATIVE) H Urine Nitrite Negative (NEGATIVE) Urine Bilirubin Negative (NEGATIVE) Urine Urobilinogen Normal MG/DL (0.0-1.0) Urine Leukocyte Esterase Negative (NEGATIVE) Urine RBC 2-4 /HPF (0 - 0) H Urine WBC 0-2 /HPF (0 - 0) Urine Squamous Epithelial Cells Occasional /LPF Urine Bacteria Few /HPF (NONE) Urine Mucus Moderate /LPF (NONE/OCC) H Sodium Level 139 MMOL/L (136-145) Potassium Level 3.8 MMOL/L (3.5-5.1) Chloride Level 103 MMOL/L (98-107) Carbon Dioxide Level 26 MMOL/L (21-32) Anion Gap 10 mmol/L (5-15) Blood Urea Nitrogen 20 mg/dL (7-18) H Creatinine 1.1 MG/DL (0.55-1.30) Estimate Glomerular Filtration Rate > 60 mL/min (>60) Glucose Level 117 MG/DL (74-106) H Calcium Level 8.9 MG/DL (8.5-10.1) Total Bilirubin 0.4 MG/DL (0.2-1.0) Aspartate Amino Transferase (AST) 39 U/L (15-37) H Alanine Aminotransferase (ALT) 45 U/L (12-78) Alkaline Phosphatase 72 U/L (46-116) Total Protein 7.5 G/DL (6.4-8.2) Albumin 3.7 G/DL (3.4-5.0) Globulin 3.8 g/dL Albumin/Globulin Ratio 1.0 (1.0-2.7) Salicylates Level 1.1 ug/mL (2.8-20) L Urine Opiates Screen Negative (NEGATIVE) Acetaminophen Level < 2 MCG/ML (10-30) L Urine Barbiturates Screen Negative (NEGATIVE) Phencyclidine (PCP) Screen Negative (NEGATIVE) Urine Amphetamines Screen Negative (NEGATIVE) Urine Benzodiazepines Screen Negative (NEGATIVE) Urine Cocaine Screen Negative (NEGATIVE) Urine Marijuana (THC) Screen Negative (NEGATIVE) Serum Alcohol < 3 mg/dL White Blood Count 5.7 K/UL (4.8-10.8) Red Blood Count 4.80 M/UL (4.70-6.10) Hemoglobin 15.9 G/DL (14.2-18.0) Hematocrit 44.4 % (42.0-52.0) Mean Corpuscular Volume 92 FL (80-99) Mean Corpuscular Hemoglobin 33.1 PG (27.0-31.0) H Mean Corpuscular Hemoglobin Concent 35.8 G/DL (32.0-36.0) Red Cell Distribution Width 11.6 % (11.6-14.8) Platelet Count 198 K/UL (150-450) Mean Platelet Volume 5.4 FL (6.5-10.1) L Neutrophils (%) (Auto) 47.0 % (45.0-75.0) Lymphocytes (%) (Auto) 42.8 % (20.0-45.0) Monocytes (%) (Auto) 6.6 % (1.0-10.0) Eosinophils (%) (Auto) 3.0 % (0.0-3.0) Basophils (%) (Auto) 0.6 % (0.0-2.0) Last Vital Signs Date Time Temp Pulse Resp B/P (MAP) Pulse Ox O2 Delivery O2 Flow Rate FiO2 07/26/17 11:30 98.1 71 14 115/72 99 Room Air 98.1 Disposition: HOME, SELF-CARE Condition: Improved Referrals: THOMAS DUFFY (PCP) Victoria Lima M.D. Jul 26, 2017 12:31
[2017-07-26 12:32] LABS: APPEARANCE,URINE CLEAR; BILIRUBIN, URINE NEGATIVE (NEGATIVE); GLUCOSE, URINE (UA) NEGATIVE (NEGATIVE); KETONES,URINE 1+ (NEGATIVE); LEUKOCYTE ESTERASE ,URINE NEGATIVE (NEGATIVE); NITRITE,URINE NEGATIVE (NEGATIVE); PH,URINE 5 (4.5-8.0); PROTEIN,URINE 1+ (NEGATIVE); UROBILINOGEN,URINE NORMAL MG/DL (0.0-1.0)
[2017-07-26 12:35] LABS: COLOR,URINE YELLOW
[2017-07-26 12:45] VITALS: BP 122/79
[2017-07-26 13:07] VITALS: BP 115/72
--- NOTE | 2017-07-28 20:00 | Cardiology Report ---
APPROVED REPORT EKG Measurement Heart [id number] ID [id number] Normal sinus rhythm Normal ECG
== END 2017-07-26 13:14 | disposition home or self-care (01) ==
LOC: EMR 11:35
DX: R55 Syncope and collapse (principal); S00.81XA Abrasion of other part of head, initial encounter; W01.0XXA Fall on same level from slipping, tripping and stumbling without subsequent striking against object, initial encounter; Y92.9 Unspecified place or not applicable; M79.644 Pain in right finger(s)
CPT/HCPCS: 36415; 80053; 80307; 81003; 85025; 93005; 99284; G0480; 80329

== ENCOUNTER 2017-07-30 09:46 | Emergency (ER) | payer OTHER ==
[~2017-07-30] VITALS: Ht 170.2 cm; Wt 80.7 kg
[2017-07-30 10:01] VITALS: BP 122/73
--- NOTE | 2017-07-30 10:17 | Emergency Room Report ---
History of Present Illness General Chief Complaint: Upper Extremity Injury Source: Patient, Medical Record Present Illness HPI 52-year-old male presenting with right hand pain. Patient states that he felt like he injured it 4 days ago. States that he has still been able to move it however still complaining of some pain. No other complaints at this time Allergies: Coded Allergies: No Known Allergies (Unverified , 10/04/16) Patient History Past Medical History: see triage record Past Surgical History: none Pertinent Family History: none Reviewed Nursing Documentation: PMH: Agreed, PSxH: Agreed Nursing Documentation-PMH Past Medical History: No History, Except For Hx Hypertension: No Hx Pacemaker: No Hx Asthma: No Hx COPD: No Hx Diabetes: No Hx Cancer: No Hx Dialysis: No Hx Neurological Problems: No Hx Cerebrovascular Accident: No Hx Seizures: No Review of Systems All Other Systems: negative except mentioned in HPI Physical Exam Vital Signs Date Time Temp Pulse Resp B/P (MAP) Pulse Ox O2 Delivery O2 Flow Rate FiO2 07/30/17 09:51 98.2 59 18 119/76 96 Room Air 98.2 Sp02 EP Interpretation: reviewed, normal General Appearance: normal inspection, well appearing, no apparent distress, alert, GCS 15, non-toxic Head: normocephalic - healed laceration R forehead. no signs of infection Eyes: bilateral eye normal inspection, bilateral eye PERRL, bilateral eye EOMI ENT: normal ENT inspection, normal pharynx, normal voice, moist mucus membranes Neck: normal inspection, full range of motion, supple Respiratory: normal inspection, lungs clear, normal breath sounds, no respiratory distress, no retraction, no wheezing, speaking full sentences, chest symmetrical Cardiovascular #1: normal inspection, regular rate, rhythm, no edema, normal capillary refill Cardiovascular #2: 2+ radial (R), 2+ radial (L) Gastrointestinal: normal inspection, non tender, soft, non-distended, no guarding Genitourinary: no CVA tenderness Musculoskeletal: other - R hand TTP palmar aspect thumb, FROM, good pinch grasp , no laxity. no snuffbox tendernesss Neurologic: normal inspection, alert, oriented x3, responsive, motor strength/ tone normal, sensory intact, normal gait, speech normal Psychiatric: normal inspection, judgement/insight normal, memory normal Skin: normal inspection, normal color, no rash, warm/dry, well hydrated, normal turgor Procedures Splinting Splinting : Consent: Verbal Location: R thumb spica Pre-Made Type: velcro Splint: thumb spica Pre-Proc Neuro Vasc Exam: normal Post-Proc Neuro Vasc Exam: normal Patient Tolerated: Well Complications: None Medical Decision Making Diagnostic Impression: Primary Impression: Thumb pain ER Course 52-year-old male with right thumb pain DDX: Contusion vs. fracture Low concern for ligamentous injury, no findings on physical exam Plan: XR ER course: thumb spica splint applied, before and after neurovascularly intact. Disposition: Patient is to be discharged home Patient educated to rest, ice, and elevate extremity and to avoid vigorous activity. Strict precautions discussed with patient on when to return to the emergency room including increased redness or swelling joints, increased pain/swelling of extremity, fever or chills, which could indicate severe illness. Patient is to follow up with their primary care doctor within 5 days. Patient also instructed to follow up with an orthopedic doctor if continuing to have mild/moderate pain as he may need further outpatient imaging. Patient agrees with plan. Please note that this Emergency Department Report was dictated using [employer] tender technology software, occasionally this can lead to erroneous entry secondary to interpretation by the dictation equipment. Xray ordered: Right hand 3 view Indication: Pain EP Interpretation: Yes Interpretation: No dislocation, no soft tissue swelling, no fractures Impression: No acute disease Electronically signed by Victoria Lima MD Last Vital Signs Date Time Temp Pulse Resp B/P (MAP) Pulse Ox O2 Delivery O2 Flow Rate FiO2 07/30/17 10:01 98.0 78 18 122/73 96 Room Air 98.0 Disposition: HOME, SELF-CARE Condition: Improved Referrals: THOMAS DUFFY (PCP) Victoria Lima M.D. Jul 30, 2017 10:17
[2017-07-30 10:58] VITALS: BP 122/73
--- NOTE | 2017-07-30 12:11 | Diagnostic Imaging Report ---
Indication: pain Right hand pain Findings: 3 views of the right hand were obtained. Normal bony mineralization and alignment are demonstrated. No acute fractures, erosions, or periosteal reaction are seen. Soft tissues are unremarkable. Impression: No acute findings.
== END 2017-07-30 10:58 | disposition home or self-care (01) ==
LOC: EMR 09:56
DX: M79.644 Pain in right finger(s) (principal)
CPT/HCPCS: 99283

== ENCOUNTER 2017-08-03 07:19 | Emergency (ER) | payer OTHER ==
[~2017-08-03] VITALS: Ht 170.2 cm; Wt 80.7 kg
--- NOTE | 2017-08-03 07:48 | Emergency Room Report ---
History of Present Illness General Chief Complaint: Lower Extremity Injury Source: Patient Present Illness HPI The patient presents with left ankle swelling. He noticed it this morning. He was having pain after syncopal episode on July 26 that occurred in the emergency department. He was evaluated and it was felt that he had a vasovagal episode. He denies any calf or thigh tenderness although he had some pain radiating from his neck down to the left side of his body to the bottom of his L foot. The right side is not swollen. He has bruising on his forehead and bilateral knees. The pain is resolved that he was feeling last few days in his ankle and foot. He believes that he passed out after having a dental procedure and was stressed. He's never passed out before. The patient is HIV positive and stable on his medication. He denies fever, chest pain, shortness of breath, cough, nausea, vomiting, diarrhea. The patient also has schizoaffective disorder denies any suicidal or homicidal thoughts. States his tetanus is up to date. Allergies: Coded Allergies: No Known Allergies (Unverified , 10/04/16) Patient History Past Medical History: see triage record Social History: Denies: smoking, alcohol use, drug use Social History Narrative at home Reviewed Nursing Documentation: PMH: Agreed, PSxH: Agreed Nursing Documentation-PMH Past Medical History: No History, Except For Hx Hypertension: No Hx Pacemaker: No Hx Asthma: No Hx COPD: No Hx Diabetes: No Hx Cancer: No Hx Dialysis: No Hx Neurological Problems: No Hx Cerebrovascular Accident: No Hx Seizures: No Review of Systems All Other Systems: negative except mentioned in HPI Physical Exam Vital Signs Date Time Temp Pulse Resp B/P (MAP) Pulse Ox O2 Delivery O2 Flow Rate FiO2 08/03/17 07:25 97.8 67 18 131/87 95 Room Air 97.9 Sp02 EP Interpretation: reviewed, normal General Appearance: well appearing, no apparent distress, GCS 15 Head: normocephalic, other - Ecchymoses and abrasion right forehead Eyes: bilateral eye normal inspection, bilateral eye PERRL ENT: moist mucus membranes Neck: full range of motion, supple, other - L side without tenderness now Respiratory: chest non-tender, lungs clear, normal breath sounds Cardiovascular #1: regular rate, rhythm, edema - pitting left ankle Cardiovascular #2: 2+ radial (R) Gastrointestinal: normal inspection, normal bowel sounds, non tender, no mass, non-distended, scaphoid Musculoskeletal: back normal, gait/station normal, normal range of motion, no calf tenderness, pelvis stable, swelling, other - Ligaments stable in the ankle. There is ecchymoses about both patella without swelling. Neurologic: alert, oriented x3, grossly normal Psychiatric: mood/affect normal - Flat affect, no suicidal/homicidal ideation, no delusions Skin: warm/dry, other - Ecchymoses, abrasions Medical Decision Making Diagnostic Impression: Primary Impression: Edema of left ankle Additional Impression: Status post syncopal episode ER Course Patient presents with unilateral left ankle swelling post syncopal episodes July 26. Differential includes posttraumatic edema, sprain, DVT, renal dysfunction amongst others. EKG and renal function was normal post-syncopal episode. He is denying pain at this time. Evaluation will be with orthostatic vital signs, electrolyte determination, CBC and coags. The patient declines pain medication at this time. EKG is reviewed. Also noninvasive vascular study will be performed of the left ankle and leg. Plain films will be performed of the ankle. Patient is not orthostatic. Labs unremarkable. Creat within range of prior values (normal). Vasc study normal. Ankle film unremarkable. Patient declined valerie (told it would help with the swelling). Patient stable for outpatient observation and treatment. Laboratory Tests Test 08/03/17 07:55 Prothrombin Time 9.8 SEC (9.30-11.50) Prothrombin Time INR 0.9 (0.9-1.1) PTT 25 SEC (23-33) Sodium Level 139 MMOL/L (136-145) Potassium Level 4.0 MMOL/L (3.5-5.1) Chloride Level 103 MMOL/L (98-107) Carbon Dioxide Level 29 MMOL/L (21-32) Anion Gap 7 mmol/L (5-15) Blood Urea Nitrogen 15 mg/dL (7-18) Creatinine 1.2 MG/DL (0.55-1.30) Estimate Glomerular Filtration Rate > 60 mL/min (>60) Glucose Level 97 MG/DL (74-106) Calcium Level 9.5 MG/DL (8.5-10.1) Total Bilirubin 0.4 MG/DL (0.2-1.0) Aspartate Amino Transferase (AST) 32 U/L (15-37) Alanine Aminotransferase (ALT) 42 U/L (12-78) Alkaline Phosphatase 80 U/L (46-116) Troponin I 0.000 ng/mL (0.000-0.056) Pro-B-Type Natriuretic Peptide 18 pg/mL (0-125) Total Protein 7.7 G/DL (6.4-8.2) Albumin 3.9 G/DL (3.4-5.0) Globulin 3.8 g/dL Albumin/Globulin Ratio 1.0 (1.0-2.7) Other X-Ray Diagnostic Results Other X-Ray Diagnostic Results : X-Ray ordered: L ankle # of Views/Limited Vs Complete: 3 View Indication: Swelling EP Interpretation: Yes Interpretation: no dislocation, no fractures, other - STS Impression: Other Electronically Signed by: Electronically signed by Malcolm Westbrook MD CT/MRI/US Diagnostic Results CT/MRI/US Diagnostic Results : Imaging Test Ordered: non-invasive vasc L leg Impression no DVT Last Vital Signs Date Time Temp Pulse Resp B/P (MAP) Pulse Ox O2 Delivery O2 Flow Rate FiO2 08/03/17 08:50 97.8 63 18 122/78 95 Room Air 97.9 63 Status: improved Disposition: HOME, SELF-CARE Condition: Improved Malcolm Westbrook M.D. Aug 03, 2017 07:48
[2017-08-03 08:19] LABS: INR 0.9 (0.9-1.1)
[2017-08-03 08:22] LABS: ANION GAP 7 mmol/L (5-15); BLOOD UREA NITROGEN 15 mg/dL (7-18); CALCIUM 9.5 MG/DL (8.5-10.1); CARBON DIOXIDE 29 MMOL/L (21-32); CHLORIDE 103 MMOL/L (98-107); CREATININE 1.2 MG/DL (0.55-1.30); SODIUM 139 MMOL/L (136-145)
[2017-08-03 08:26] VITALS: BP 120/75
[2017-08-03 08:27] VITALS: BP 126/80
[2017-08-03 08:28] VITALS: BP 122/78
[2017-08-03 08:33] LABS: ALANINE AMINOTRANSFERASE 42 U/L (12-78); ALBUMIN 3.9 G/DL (3.4-5.0); ALKALINE PHOSPHATASE 80 U/L (46-116); ASPARTATE AMINO TRANSFERASE 32 U/L (15-37); BILIRUBIN,TOTAL 0.4 MG/DL (0.2-1.0)
[2017-08-03 08:50] VITALS: BP 122/78
--- NOTE | 2017-08-03 11:51 | Diagnostic Imaging Report ---
Indication: Left ankle pain and swelling Technique: 3 views of the left ankle Comparison: none Findings: There is slight deformity of the distal fibula, probably developmental but could be on the basis of old trauma. There is medial malleolar soft tissue swelling. No acute fractures. No dislocations. Joint spaces are preserved Impression: No acute bony trauma. Findings as noted
== END 2017-08-03 08:50 | disposition home or self-care (01) ==
LOC: EMR 07:50
DX: R60.0 Localized edema (principal)
CPT/HCPCS: 36415; 80053; 83880; 84484; 85610; 85730; 93970; 99283

== ENCOUNTER 2017-08-27 19:26 | Emergency (ER) | payer OTHER ==
[~2017-08-27] VITALS: Ht 170.2 cm; Wt 83.5 kg
[2017-08-27 19:49] VITALS: BP 146/86
[2017-08-27] MEDS ORDERED: ZYRTEC10 MG ORAL (20:53)
[2017-08-27 21:15] VITALS: BP 146/86
[2017-08-27] MEDS ORDERED: TAMIFLU75 MG ORAL (21:17)
--- NOTE | 2017-08-27 22:33 | Emergency Room Report ---
History of Present Illness General Chief Complaint: Upper Respiratory Illness Source: Patient Present Illness HPI Patient presents with complaints of cough Reports that he had some mild chills Denies any headache denies any chest pain However patient also had mild body ache Denies any productive cough He felt that there was possibly some allergic component Denies any recent travel denies any short of breath or chest pain Allergies: Coded Allergies: No Known Allergies (Unverified , 10/04/16) Patient History Past Medical History: see triage record Past Surgical History: none Reviewed Nursing Documentation: PMH: Agreed; PSxH: Agreed Nursing Documentation-PMH Past Medical History: No History, Except For Hx Hypertension: No Hx Pacemaker: No Hx Asthma: No Hx COPD: No Hx Diabetes: No Hx Cancer: No Hx Dialysis: No Hx Neurological Problems: No Hx Cerebrovascular Accident: No Hx Seizures: No Review of Systems All Other Systems: negative except mentioned in HPI Physical Exam Vital Signs Date Time Temp Pulse Resp B/P (MAP) Pulse Ox O2 Delivery O2 Flow Rate FiO2 08/27/17 19:39 99.3 78 14 146/86 97 Room Air 99.3 Sp02 EP Interpretation: reviewed, normal General Appearance: well appearing, no apparent distress Head: normocephalic, atraumatic Eyes: bilateral eye PERRL, bilateral eye EOMI ENT: hearing grossly normal, normal pharynx, TMs + canals normal, uvula midline Neck: full range of motion, supple, no meningismus, no bony tend Respiratory: lungs clear, normal breath sounds, no rhonchi, no respiratory distress, no retraction, no accessory muscle use Cardiovascular #1: normal peripheral pulses, regular rate, rhythm, no edema, no gallop, no JVD, no murmur Gastrointestinal: normal bowel sounds, non tender, soft, no mass, no organomegaly, non-distended, no guarding, no hernia, no pulsatile mass, no rebound Genitourinary: no CVA tenderness Musculoskeletal: normal inspection Neurologic: oriented x3, responsive, hospital account manager III-XII nml as tested, motor strength/ tone normal, sensory intact Psychiatric: mood/affect normal Skin: normal color, no rash, warm/dry, palpation normal Lymphatic: normal inspection, no adenopathy Medical Decision Making Diagnostic Impression: Primary Impression: cough Additional Impression: sinusitis ER Course Given the patient's history and presentation there is some component of viral URI Given the patient's presentation within 2 days I felt Tamiflu would be appropriate Also Claritin for some of the allergic component Patient however did leave prior to getting prescription and paperwork he had reported to me prior that he would be following up with his primary physician Last Vital Signs Date Time Temp Pulse Resp B/P (MAP) Pulse Ox O2 Delivery O2 Flow Rate FiO2 08/27/17 21:15 99.3 78 14 146/86 97 Room Air 99.3 Status: unchanged Disposition: HOME, SELF-CARE Condition: Stable Scripts Oseltamivir Phosphate (Tamiflu) 75 Mg Capsule 75 MG ORAL TWICE A DAY for 5 Days, CAP Prov: Irene Vu DO 08/27/17 Cetirizine Hcl* (ZYRTEC*) 10 Mg Tablet 10 MG ORAL DAILY, #15 TAB 0 Refills Prov: Irene Vu DO 08/27/17 Referrals: THOMAS DUFFY (PCP) Patient Instructions: Sinusitis, Adult, [id number] Additional Instructions: Patient is provided with the discharge instructions notified to follow up with primary doctor in the next 2-3 days otherwise return to the er with any worsening symptoms. Please note that this report is being documented using [employer] technology. This can lead to erroneous entry secondary to incorrect interpretation by the dictating instrument. Irene Vu DO Aug 27, 2017 22:33
== END 2017-08-27 21:15 | disposition home or self-care (01) ==
LOC: EMR 20:34
DX: R05 Cough (principal); J32.9 Chronic sinusitis, unspecified
CPT/HCPCS: 99284

== ENCOUNTER 2017-08-30 14:05 | Emergency (ER) | payer OTHER ==
[~2017-08-30] VITALS: Ht 170.2 cm; Wt 83.5 kg
[~2017-08-30 14:05] MED LIST changes: +TAMIFLU75 MG ORAL
[2017-08-30 14:16] VITALS: BP 121/78
--- NOTE | 2017-08-30 14:49 | Emergency Room Report ---
History of Present Illness General Chief Complaint: General Complaint Present Illness HPI 32-year-old male presents to the emergency department for medication therapy consult. Patient states that he was seen here in the ER 3 days ago and was prescribed Tamiflu. Patient left before receiving prescription. Patient states that he then visited his primary care doctor whom he asked to rx Tamiflu for him. Initially his PCP was reluctant to write him this prescription. Patient states that eventually his PCP ended up writing him a prescription and stated if you feel sick then take it if not then dont. He states that he is now confused and is not sure whether or not he should take this medication. He reports some improvement of his symptoms denies fevers or chills. Denies neck pain, stiffness, photophobia.Denies CP, Palpitations, LOC, AMS, dizziness, Changes in Vision, Sensation, paresthesias, or a sudden severe headache. Allergies: Coded Allergies: No Known Allergies (Unverified , 10/04/16) Patient History Past Medical History: see triage record Past Surgical History: none Pertinent Family History: none Immunizations: UTD Reviewed Nursing Documentation: PMH: Agreed; PSxH: Agreed Nursing Documentation-PMH Hx Hypertension: No Hx Pacemaker: No Hx Asthma: No Hx COPD: No Hx Diabetes: No Hx Cancer: No Hx Dialysis: No Hx Neurological Problems: No Hx Cerebrovascular Accident: No Hx Seizures: No Review of Systems All Other Systems: negative except mentioned in HPI Physical Exam Vital Signs Date Time Temp Pulse Resp B/P (MAP) Pulse Ox O2 Delivery O2 Flow Rate FiO2 08/30/17 14:16 99.0 71 16 121/78 96 Room Air 99.0 Sp02 EP Interpretation: reviewed, normal General Appearance: no apparent distress, alert, GCS 15, non-toxic Head: normocephalic, atraumatic ENT: hearing grossly normal, normal voice Neck: full range of motion Respiratory: lungs clear, normal breath sounds, speaking full sentences Cardiovascular #1: regular rate, rhythm Musculoskeletal: back normal, gait/station normal, normal range of motion Neurologic: alert, oriented x3, responsive, motor strength/tone normal, sensory intact, normal gait, speech normal, grossly normal Psychiatric: anxious Skin: normal color, no rash, warm/dry, well hydrated Medical Decision Making PA Attestation Dr. Lima is my supervising Physician whom patient management has been discussed with. Diagnostic Impression: Primary Impression: Medication care plan discussed with patient Additional Impression: Encounter for medication review and counseling ER Course 32-year-old male presents to the emergency department for medication therapy consult. Patient states that he was seen here in the ER 3 days ago and was prescribed Tamiflu. Patient left before receiving prescription. Patient states that he then visited his primary care doctor whom he asked to rx Tamiflu for him. Initially his PCP was reluctant to write him this prescription. Patient states that eventually his PCP ended up writing him a prescription and stated if you feel sick then take it if not then dont. He states that he is now confused and is not sure whether or not he should take this medication. He reports some improvement of his symptoms denies fevers or chills. Denies neck pain, stiffness, photophobia.Denies CP, Palpitations, LOC, AMS, dizziness, Changes in Vision, Sensation, paresthesias, or a sudden severe headache. Ddx considered but are not limited to URI, pneumonia, PE, strep pharyngitis, meningitis, medication non-compliance, Vital signs: Pt. is afebrile, the remaining VS are WNL H&PE are most consistent with need for non-emergent medication counseling regarding recent treatment plan for URI/viral symptoms. ORDERS: none required at this time, the diagnosis is clinical ED INTERVENTIONS: None required at this time. --I discussed with this patient that Tamiflu is an antiviral. I educated patient that this medication has been shown to reduce symptoms by 1 day. Most healthy persons can be treated symptomatically. D/w pt. that when A medical provider prescribes a medication this is their professional recommendation. Ultimately the decision to be compliant or not is to be made by the patient. I d/w pt: That given this medication only lower symptoms by 1 day he can determine if this is a significant benefit for him or not. -I do not identify an emergent condition at this time. With current presentation , pt. is stable for close outpatient follow up and conservative treatment. D/ w pt. to return promptly to ED with worsening or new symptoms.- Pt. verbalizes' understanding and agreement with proposed treatment plan.proposed treatment plan. DISCHARGE: At this time pt. is stable for d/c to home. Will provide printed patient care instructions, and any necessary prescriptions. Care plan and follow up instructions have been discussed with the patient prior to discharge. Last Vital Signs Date Time Temp Pulse Resp B/P (MAP) Pulse Ox O2 Delivery O2 Flow Rate FiO2 08/30/17 14:16 99.0 71 16 121/78 96 Room Air 99.0 Disposition: HOME, SELF-CARE Condition: Stable Patient Instructions: Medical Screening Exam Additional Instructions: Recommend to take medications as previously prescribed. This decision is to be made by you. Follow up with a Primary Care Provider in 3-5 days, even if your symptoms have resolved. --Please review list of primary care clinics, if you do not already have a primary care provider Return sooner to ED if new symptoms occur, or current symptoms become worse. - Please note that this Emergency Department Report was dictated using [employer] mixer driver technology software, occasionally this can lead to erroneous entry secondary to interpretation by the dictation equipment. Nery East Aug 30, 2017 14:49
[2017-08-30 15:14] VITALS: BP 121/78
== END 2017-08-30 15:14 | disposition home or self-care (01) ==
LOC: EMR 14:50
DX: Z71.89 Other specified counseling (principal)
CPT/HCPCS: 99282

== ENCOUNTER 2017-10-28 21:16 | Emergency (ER) | payer OTHER ==
[~2017-10-28] VITALS: Ht 170.2 cm; Wt 83.5 kg
[2017-10-28 21:35] VITALS: BP 134/84
--- NOTE | 2017-10-28 21:38 | Emergency Room Report ---
History of Present Illness General Chief Complaint: Palpitations Source: Patient Present Illness HPI Patient is a 52-year-old male who presented after increased palpitations. Patient reports having resolution of palpitations prostate one hour prior to arrival. Patient multiple previous visits for similar symptoms. Patient prior history of anxiety. The patient reports having previous episodic hematuria which had become the focus for anxiety. The patient had been followed by Dr. Lalo Turk Allergies: Coded Allergies: No Known Allergies (Unverified , 10/04/16) Patient History Reviewed Nursing Documentation: PMH: Agreed; PSxH: Agreed Nursing Documentation-PMH Hx Hypertension: No Hx Pacemaker: No Hx Asthma: No Hx COPD: No Hx Diabetes: No Hx Cancer: No Hx Dialysis: No Hx Neurological Problems: No Hx Cerebrovascular Accident: No Hx Seizures: No Review of Systems All Other Systems: negative except mentioned in HPI Physical Exam Vital Signs Date Time Temp Pulse Resp B/P (MAP) Pulse Ox O2 Delivery O2 Flow Rate FiO2 10/28/17 21:23 97.6 134 16 134/84 98 Room Air 97.5 Sp02 EP Interpretation: reviewed, normal General Appearance: normal inspection, well appearing, no apparent distress, alert, GCS 15, non-toxic Head: atraumatic ENT: normal ENT inspection, hearing grossly normal, normal voice Neck: normal inspection, full range of motion, supple, no bony tend Respiratory: normal inspection, lungs clear, normal breath sounds, no respiratory distress, no retraction, no wheezing Cardiovascular #1: regular rate, rhythm, no edema Gastrointestinal: normal inspection, normal bowel sounds, non tender, soft, no guarding, no hernia Genitourinary: no CVA tenderness Musculoskeletal: normal inspection, back normal, normal range of motion Neurologic: normal inspection, alert, oriented x3, responsive, rn womens health III-XII nml as tested, speech normal Psychiatric: normal inspection, judgement/insight normal, mood/affect normal Skin: normal inspection, normal color, no rash Medical Decision Making Diagnostic Impression: Primary Impression: Palpitations ER Course Patient presented for palpitations. The differential diagnosis included was not limited to arrhythmia, thyroid storm, sepsis, anemia, myocardial infarction , alcohol withdrawal, stimulant abuse, caffeine overdose among others. Patient has a benign exam and does not appear to require any further imaging or laboratory testing at this time. EKG interpreted by me showed sinus pericardia without acute ST or T wave changes.The patient's initial vital signs were not verified and the patient stated that he did not fill any palpitations at the time of triage. This may have been machine error. The patient declined cardiac monitoring. The patient has been had multiple visits in the past for similar symptoms.The patient is advised to follow up with primary care doctor in 1-2 days. Patient is advised to return if any worsening condition or if any changes in status that are concerning. This report is dictated with [employer] impregnator software which may occasionally lead to discrepancies related to use of this software. EKG Diagnostic Results Rate: bradycardiac Rhythm: NSR ST Segments: no acute changes Last Vital Signs Date Time Temp Pulse Resp B/P (MAP) Pulse Ox O2 Delivery O2 Flow Rate FiO2 10/28/17 21:23 97.6 134 16 134/84 98 Room Air 97.5 Status: improved Disposition: HOME, SELF-CARE Condition: Stable Patient Instructions: Palpitations Norman Palmer MD Oct 28, 2017 21:38
[2017-10-28 21:48] VITALS: BP 134/84
--- NOTE | 2017-10-30 12:33 | Cardiology Report ---
APPROVED REPORT EKG Measurement Heart [id number] Sinus bradycardia Septal infarct, age undetermined Abnormal ECG
== END 2017-10-28 21:50 | disposition home or self-care (01) ==
LOC: EMR 21:39
DX: R00.2 Palpitations (principal)
CPT/HCPCS: 93005; 99283

== ENCOUNTER 2017-11-24 12:28 | Emergency (ER) | payer OTHER ==
[~2017-11-24] VITALS: Ht 170.2 cm; Wt 84.8 kg
[2017-11-24] MEDS ORDERED: IBUPROFEN600 MG ORAL (12:52)
--- NOTE | 2017-11-24 12:53 | Emergency Room Report ---
History of Present Illness General Chief Complaint: General Complaint Source: Patient Present Illness HPI 52-year-old male patient presents ER complaining of left neck stiffness since this morning. States that he thinks he "slept wrong on it". Reports symptoms have improved since that time. reports history of similar symptoms, does not like taking muscle relaxants because they make him feel "woozy". Denies fever, chest pain, shortness of breath. Reports no loss of range of motion. Denies other acute symptoms. Denies rash. Denies injury. Allergies: Coded Allergies: No Known Allergies (Unverified , 10/04/16) Patient History Past Medical History: see triage record Reviewed Nursing Documentation: PMH: Agreed; PSxH: Agreed Nursing Documentation-PMH Past Medical History: No History, Except For Hx Hypertension: No Hx Pacemaker: No Hx Asthma: No Hx COPD: No Hx Diabetes: No Hx Cancer: No Hx Dialysis: No Hx Neurological Problems: No Hx Cerebrovascular Accident: No Hx Seizures: No Review of Systems All Other Systems: negative except mentioned in HPI Physical Exam Vital Signs Date Time Temp Pulse Resp B/P (MAP) Pulse Ox O2 Delivery O2 Flow Rate FiO2 11/24/17 12:32 98.2 57 16 111/68 94 Room Air 98.2 Sp02 EP Interpretation: reviewed, normal General Appearance: well appearing, no apparent distress, alert, GCS 15, non- toxic Head: normocephalic, atraumatic Eyes: bilateral eye normal inspection, bilateral eye PERRL ENT: hearing grossly normal, normal pharynx, no angioedema, normal voice, TMs + canals normal - mild cerumen present, uvula midline, moist mucus membranes Neck: full range of motion, no meningismus, no bony tend - no spinous process tenderness, no bony depression Respiratory: lungs clear, normal breath sounds, no rhonchi, no respiratory distress, no accessory muscle use, no wheezing, speaking full sentences Cardiovascular #1: regular rate, rhythm, no edema Musculoskeletal: back normal, digits/nails normal, gait/station normal, normal range of motion, non-tender Neurologic: alert, oriented x3, responsive, motor strength/tone normal, sensory intact Skin: no rash Lymphatic: no adenopathy Medical Decision Making PA Attestation Dr. Westbrook is my supervising Physician whom patient management has been discussed with. Diagnostic Impression: Primary Impression: Muscle spasm ER Course Pt. presents to the ED c/o muscle stiffness. Ddx considered but are not limited to fracture, sprain, strain, contusion, dislocation, muscle spasm. No erythema, no warmth to touch, no fever, nontoxic appearing, low suspicion for septic joint. no meningismus, no fever, nontoxic appearing, no solution for meningitis. Does not require labs at this time. Vital signs: are WNL, pt. is afebrile ER COURSE Provided with pain medication. physical exam benign, full range of motion, no bony tenderness, no rash, low suspicion for allergic reaction or shingles.. Does not require Imaging at this time. Likely muscle spasm this morning that has since resolved with improvement of symptoms per patient report. Patient instructed on rest, ice and heat. patient declined muscle relaxers and lidocaine patches. Followup with primary care provider. Discuss referral to ortho/pain management/ PT as needed. Discuss further imaging with MRI/CT as needed. DISCHARGE: -Rx provided for Ibuprofen for pain symptoms. At this time pt. is stable for d/c to home. Patient is resting comfortably, in no acute distress, nontoxic appearing, talking without difficulty. Will provide printed patient care instructions, and any necessary prescriptions. Patient instructed to follow with primary care provider in 3 - 5 days and to request further follow-up as needed. Care plan and follow up instructions have been discussed with the patient prior to discharge. Take medications as directed. Patient questions asked and answered. Patient reports understanding and agreement to treatment plan. ER precautions given, patient instructed to return to ER immediately for any new or worsening of symptoms. - Please note that this Emergency Department Report was dictated using [employer] power superintendent technology software, occasionally this can lead to erroneous entry secondary to interpretation by the dictation equipment. Last Vital Signs Date Time Temp Pulse Resp B/P (MAP) Pulse Ox O2 Delivery O2 Flow Rate FiO2 11/24/17 12:32 98.2 57 16 111/68 94 Room Air 98.2 Disposition: HOME, SELF-CARE Condition: Stable Scripts Ibuprofen* (MOTRIN*) 600 Mg Tablet 600 MG ORAL Q8H PRN for For Pain, #30 TAB 0 Refills Prov: AnaHenry. 11/24/17 Patient Instructions: Muscle Cramps and Spasms Additional Instructions: Patient instructed to follow up with primary care provider 3-5 and discuss further referral and imaging at that time. Patient instructed on rest, ice and heat. Take medications as directed. Patient questions asked and answered. ER precautions given, patient instructed to return to ER immediately for any new or worsening of symptoms. Henry Perez Nov 24, 2017 12:53
[2017-11-24 13:05] VITALS: BP 111/68
== END 2017-11-24 13:07 | disposition home or self-care (01) ==
LOC: EMR 12:50
DX: M62.838 Other muscle spasm (principal)
CPT/HCPCS: 99283

== ENCOUNTER 2017-12-03 19:38 | Emergency (ER) | payer OTHER ==
[~2017-12-03] VITALS: Ht 170.2 cm; Wt 82.6 kg
[2017-12-03 19:46] VITALS: BP 128/83
[2017-12-03 20:03] VITALS: BP 128/83
--- NOTE | 2017-12-05 07:27 | Emergency Room Report ---
History of Present Illness General Chief Complaint: Palpitations Source: Patient Present Illness HPI 52-year-old male presents ED complaining of palpitations. States that last for several seconds then resolved. Patient is asymptomatic here. Patient states his roommate was stressing him out and likely triggered his symptoms. Denies chest pain or shortness of breath. Denies drug use. No other aggravating or relieving factors. Denies any other associated symptoms Allergies: Coded Allergies: No Known Allergies (Unverified , 10/04/16) Patient History Past Medical History: psych hx Past Surgical History: none Pertinent Family History: none Social History: Denies: smoking, alcohol use, drug use Immunizations: UTD Reviewed Nursing Documentation: PMH: Agreed; PSxH: Agreed Nursing Documentation-PMH Past Medical History: No History, Except For Hx Hypertension: No Hx Pacemaker: No Hx Asthma: No Hx COPD: No Hx Diabetes: No Hx Cancer: No Hx Dialysis: No Hx Neurological Problems: No Hx Cerebrovascular Accident: No Hx Seizures: No Review of Systems All Other Systems: negative except mentioned in HPI Physical Exam Vital Signs Date Time Temp Pulse Resp B/P (MAP) Pulse Ox O2 Delivery O2 Flow Rate FiO2 12/03/17 19:43 98.1 65 16 128/83 95 98.1 12/03/17 19:46 Room Air Sp02 EP Interpretation: reviewed, normal General Appearance: no apparent distress, alert, GCS 15, non-toxic Head: normocephalic, atraumatic Eyes: bilateral eye normal inspection, bilateral eye PERRL ENT: hearing grossly normal, normal pharynx, no angioedema, normal voice Neck: full range of motion, supple/symm/no masses Respiratory: chest non-tender, lungs clear, normal breath sounds, speaking full sentences Cardiovascular #1: regular rate, rhythm, no edema Cardiovascular #2: 2+ carotid (R), 2+ carotid (L), 2+ radial (R), 2+ radial (L) , 2+ dorsalis pedis (R), 2+ dorsalis pedis (L) Gastrointestinal: normal bowel sounds, non tender, soft, non-distended, no guarding, no rebound Rectal: deferred Genitourinary: normal inspection, no CVA tenderness Musculoskeletal: back normal, gait/station normal, normal range of motion, non- tender Neurologic: alert, oriented x3, responsive, motor strength/tone normal, sensory intact, speech normal Psychiatric: judgement/insight normal, memory normal, no suicidal/homicidal ideation, anxious Reflexes: 3+ bicep (R), 3+ bicep (L), 3+ tricep (R), 3+ tricep (L), 3+ knee (R) , 3+ knee (L) Skin: normal color, no rash, warm/dry, well hydrated Lymphatic: no adenopathy Medical Decision Making Diagnostic Impression: Primary Impression: Palpitations ER Course Hospital Course 52-year-old M presents ED complaining of palpitations Differential diagnoses include: afib, Vtach, SVT, anxiety, dehydration Clinical course Patient placed on stretcher. 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 Discussed findings with patient. Patient [place] well[place] [facility] [place] been here multiple times for similar presentation. Do not believe patient with benefit from workup at this time. Patient agrees. Patient safe for discharge. I. I feel this is a highly complex case requiring extensive working including EKG/Rhythm strip, Xray/CT/US, Blood/urine lab work, repeat exams while in ED, and administration of strong opiates/narcotics for pain control, admission to hospital or close patient follow up. Diagnosis - palpitations Stable and discharged to home. Instructed to followup with PMD. Return to ED if symptoms recur or worsen EKG Diagnostic Results Rate: normal Rhythm: NSR ST Segments: no acute changes ASA given to the pt in ED: No Rhythm Strip Diag. Results EP Interpretation: yes Rhythm: NSR, no PVC's, no ectopy Last Vital Signs Date Time Temp Pulse Resp B/P (MAP) Pulse Ox O2 Delivery O2 Flow Rate FiO2 12/03/17 20:03 98.1 67 16 128/83 95 Room Air 98.1 Status: improved Disposition: HOME, SELF-CARE Condition: Stable Referrals: NON PHYSICIAN (PCP) Patient Instructions: Palpitations, [id number] Shelton Diop MD Dec 05, 2017 07:27
--- NOTE | 2017-12-06 12:18 | Cardiology Report ---
APPROVED REPORT EKG Measurement Heart [id number] Normal sinus rhythm Normal ECG
== END 2017-12-03 20:03 | disposition home or self-care (01) ==
LOC: EMR 19:55
DX: R00.2 Palpitations (principal)
CPT/HCPCS: 93005

== ENCOUNTER 2017-12-11 20:32 | Emergency (ER) | payer OTHER ==
[~2017-12-11] VITALS: Ht 170.2 cm; Wt 68.0 kg
[2017-12-11 20:40] VITALS: BP 128/79
--- NOTE | 2017-12-11 21:18 | Emergency Room Report ---
History of Present Illness General Chief Complaint: Palpitations Source: Patient Present Illness HPI Patient presents with complaints of palpitation sensation He reports that he was essentially upset about her recent workup for hematuria he reports that he had to go through cystoscopy and other workup And as he thinks about that it makes him upset and he feels palpitations Denies any chest pain Denies any back or flank pain Denies any vomiting or diarrhea Denies any change in medications Allergies: Coded Allergies: No Known Allergies (Unverified , 10/04/16) Patient History Past Medical History: see triage record Pertinent Family History: none Reviewed Nursing Documentation: PMH: Agreed; PSxH: Agreed Nursing Documentation-PMH Past Medical History: No History, Except For Hx Hypertension: No Hx Pacemaker: No Hx Asthma: No Hx COPD: No Hx Diabetes: No Hx Cancer: No Hx Dialysis: No Hx Neurological Problems: No Hx Cerebrovascular Accident: No Hx Seizures: No Review of Systems All Other Systems: negative except mentioned in HPI Physical Exam Vital Signs Date Time Temp Pulse Resp B/P (MAP) Pulse Ox O2 Delivery O2 Flow Rate FiO2 12/11/17 20:36 98.2 61 16 125/80 95 Room Air 98.2 Sp02 EP Interpretation: reviewed, normal General Appearance: well appearing, no apparent distress Head: normocephalic, atraumatic Eyes: bilateral eye PERRL, bilateral eye EOMI ENT: hearing grossly normal, normal pharynx, TMs + canals normal, uvula midline Neck: full range of motion, supple, no meningismus, no bony tend Respiratory: lungs clear, normal breath sounds, no rhonchi, no respiratory distress, no retraction, no accessory muscle use Cardiovascular #1: normal peripheral pulses, regular rate, rhythm, no edema, no gallop, no JVD, no murmur Gastrointestinal: normal bowel sounds, non tender, soft, no mass, no organomegaly, non-distended, no guarding, no hernia, no pulsatile mass, no rebound Genitourinary: no CVA tenderness Musculoskeletal: normal inspection Neurologic: oriented x3, responsive, medical laboratory technicians III-XII nml as tested, motor strength/ tone normal, sensory intact Psychiatric: mood/affect normal Skin: normal color, no rash, warm/dry, palpation normal Lymphatic: normal inspection, no adenopathy Medical Decision Making Diagnostic Impression: Primary Impression: Palpitations ER Course Patient is a fairly complex patient with multiple differential to consideration including but not limited to cardiac cardiopulmonary and vascular emergencies Patient appears well otherwise Medical evaluation is fairly benign Patient remains hemodynamically stable Also remains appropriate on radiologic therapist EKG shows appropriate findings Patient states that he feels better after talking about the whole situation At this time has close outpatient follow-up Patient also has had fairly extensive workup regarding the palpitations with cardiac consultation previously And will return with any changes EKG Diagnostic Results Rate: normal Rhythm: NSR ST Segments: no acute changes Rhythm Strip Diag. Results EP Interpretation: yes Rate: 65 Rhythm: NSR, no PVC's, no ectopy Last Vital Signs Date Time Temp Pulse Resp B/P (MAP) Pulse Ox O2 Delivery O2 Flow Rate FiO2 12/11/17 20:40 98.2 80 16 128/79 96 Room Air 98.2 Status: improved Disposition: HOME, SELF-CARE Condition: Improved Additional Instructions: Patient is provided with the discharge instructions notified to follow up with primary doctor in the next 2-3 days otherwise return to the er with any worsening symptoms. Please note that this report is being documented using [employer] technology. This can lead to erroneous entry secondary to incorrect interpretation by the dictating instrument. Irene Vu DO Dec 11, 2017 21:18
[2017-12-11 21:39] VITALS: BP 126/68
[2017-12-11 21:40] VITALS: BP 126/68
== END 2017-12-11 21:40 | disposition home or self-care (01) ==
LOC: EMR 20:45
DX: R00.2 Palpitations (principal)
CPT/HCPCS: 93005; 99283

== ENCOUNTER 2018-07-01 07:06 | Emergency (ER) | payer OTHER ==
[~2018-07-01] VITALS: Ht 170.2 cm; Wt 82.6 kg
[2018-07-01 07:30] VITALS: BP 131/82
--- NOTE | 2018-07-01 07:30 | NUR ---
ED Nurse Note: pt walked in to ED for second opinion. pt noticed red dots on both legs for couple days without pain, itchness or discharge. seen by insurance verifier yesterday. no prescription ordered. AAO x4. respirations even and non-labored noted. skin warm to touch. no open wound noted. will wait for the further order.
--- NOTE | 2018-07-01 08:28 | Emergency Room Report ---
History of Present Illness General Chief Complaint: Skin Rash/Abscess Source: Patient Present Illness HPI Patient presents with a rash on his feet legs arms Patient reports that he saw a rn hyperbaric yesterday reports that he was not impressed Patient also has appointment tomorrow with Dr. turk Patient reports that in the past she has been told that is allergic reaction, versus medication reaction Denies any itching and eyes any chest pain or shortness of breath denies any bruising Denies any change in medication Allergies: Coded Allergies: No Known Allergies (Unverified , 10/04/16) Patient History Past Medical History: see triage record Pertinent Family History: none Reviewed Nursing Documentation: PMH: Agreed; PSxH: Agreed Nursing Documentation-PMH Past Medical History: No History, Except For Hx Hypertension: No Hx Pacemaker: No Hx Asthma: No Hx COPD: No Hx Diabetes: No Hx Cancer: No Hx Dialysis: No Hx Neurological Problems: No Hx Cerebrovascular Accident: No Hx Seizures: No Review of Systems All Other Systems: negative except mentioned in HPI Physical Exam Vital Signs Date Time Temp Pulse Resp B/P (MAP) Pulse Ox O2 Delivery O2 Flow Rate FiO2 07/01/18 07:21 97.7 54 14 131/82 98 Room Air Sp02 EP Interpretation: reviewed, normal General Appearance: well appearing, no apparent distress Head: normocephalic, atraumatic Eyes: bilateral eye PERRL, bilateral eye EOMI ENT: hearing grossly normal, normal pharynx, TMs + canals normal, uvula midline Neck: full range of motion, supple, no meningismus, no bony tend Respiratory: lungs clear, normal breath sounds, no rhonchi, no respiratory distress, no retraction, no accessory muscle use Cardiovascular #1: normal peripheral pulses, regular rate, rhythm, no edema, no gallop, no JVD, no murmur Gastrointestinal: normal bowel sounds, non tender, soft, no mass, no organomegaly, non-distended, no guarding, no hernia, no pulsatile mass, no rebound Musculoskeletal: normal inspection Neurologic: oriented x3, responsive, chip mixer III-XII nml as tested, motor strength/ tone normal, sensory intact Psychiatric: mood/affect normal Skin: other - Nonspecific rash involving bilateral feet and legs, bilateral upper extremity, patient does have similar rash involving the chest and back area as well, irregular approximately 3-4 mm lesions, non-petechiae in nature, they do shonna, does not appear dermatomal Lymphatic: normal inspection, no adenopathy Medical Decision Making Diagnostic Impression: Primary Impression: Rash and other nonspecific skin eruption ER Course Given the patient's presentation with nonspecific rash Baseline blood work was initiated Patient reports having this rash on several occasions Has not had any new medication started Patient did see dermatology yesterday Platelets are within normal limits Patient is afebrile And is appropriate for close follow-up with Dr. Turk tomorrow white blood cell 4.7 Platelets normal Chemistry normal Last Vital Signs Date Time Temp Pulse Resp B/P (MAP) Pulse Ox O2 Delivery O2 Flow Rate FiO2 07/01/18 07:30 97.7 66 16 131/82 98 Room Air Status: improved Disposition: HOME, SELF-CARE Condition: Improved Referrals: NON PHYSICIAN (PCP) Additional Instructions: Patient is provided with the discharge instructions notified to follow up with primary doctor in the next 2-3 days otherwise return to the er with any worsening symptoms. Please note that this report is being documented using [employer] technology. This can lead to erroneous entry secondary to incorrect interpretation by the dictating instrument. Irene Vu DO Jul 01, 2018 08:28
[2018-07-01 08:38] LABS: BASOPHILS % (AUTO) 0.9 % (0.0-2.0); EOSINOPHILS % (AUTO) 2.9 % (0.0-3.0); HEMATOCRIT 47.4 % (42.0-52.0); HEMOGLOBIN 16.2 G/DL (14.2-18.0); LYMPHOCYTES % (AUTO) 32.8 % (20.0-45.0); MEAN CORPUSCULAR VOLUME 92 FL (80-99); MONOCYTES % (AUTO) 7.9 % (1.0-10.0); NEUTROPHILS % (AUTO) 55.5 % (45.0-75.0); PLATELET COUNT 223 K/UL (150-450); RED BLOOD COUNT 5.14 M/UL (4.70-6.10); RED CELL DISTRIBUTION WIDTH 11.8 % (11.6-14.8); WHITE BLOOD COUNT 4.7 K/UL (4.8-10.8)
[2018-07-01 08:50] LABS: ANION GAP 6 mmol/L (5-15); BLOOD UREA NITROGEN 17 mg/dL (7-18); CALCIUM 9.1 MG/DL (8.5-10.1); CARBON DIOXIDE 30 MMOL/L (21-32); CHLORIDE 103 MMOL/L (98-107); CREATININE 1.2 MG/DL (0.55-1.30); POTASSIUM 4.3 MMOL/L (3.5-5.1); SODIUM 139 MMOL/L (136-145)
[2018-07-01 08:55] LABS: ALANINE AMINOTRANSFERASE 64 U/L (12-78); ALKALINE PHOSPHATASE 70 U/L (46-116); ASPARTATE AMINO TRANSFERASE 52 U/L (15-37); BILIRUBIN,TOTAL 0.3 MG/DL (0.2-1.0)
[2018-07-01 09:17] VITALS: BP 129/79
[2018-07-01 09:18] VITALS: BP 129/79
--- NOTE | 2018-07-01 09:18 | NUR ---
ED Nurse Note: Pt is clear to be discharged by ERMD. Discharge paper given, pt verbalized understanding of discharge instruction. Aox4, VSS. Wristband removed. Pt ambulated out with steady gait with all belongings.
== END 2018-07-01 09:18 | disposition home or self-care (01) ==
LOC: EMR 08:15
DX: R21 Rash and other nonspecific skin eruption (principal)
CPT/HCPCS: 36415; 80053; 85025; 99283

== ENCOUNTER 2018-10-18 09:24 | Emergency (ER) | payer OTHER ==
[~2018-10-18] VITALS: Ht 170.2 cm; Wt 89.8 kg
[2018-10-18 09:40] VITALS: BP 123/80
--- NOTE | 2018-10-18 09:50 | NUR ---
ED Nurse Note: pt walked in due to palpitation felt 4am this morning. pt sttaed that he feels that when is stressed, pt denies pain. seen by puma. ekg done by janna canseco. pt denies pain. pt is not in acute distress. will continue to monitor
--- NOTE | 2018-10-18 09:54 | Emergency Room Report ---
History of Present Illness General Chief Complaint: General Complaint Source: Patient Present Illness HPI Patient felt skipped heartbeats last night. He states this happens when his allergies are active. He doesn't like taking medication for his allergies because the dry up his eyes and his throat. He denies any chest pain, fevers, nausea, vomiting, diarrhea, dizziness. There were several beats and then they "leveled out". He states he gets samples for nasal steroids from his doctor but that they are small samples and he has not at this time. He is not taking any cardiac stimulant decongestants at this time. The patient states he is slightly agitated about his neighbors but denies any suicidal or homicidal ideation. He states this is part of what apartment living is. The patient is eating well and moving his bowels without difficulty. He denies any dysuria. Patient is a history of HIV and is on anti-viral's and followed by his doctors closely. Risk factors for cardiac disease: Hypertension Allergies: Coded Allergies: No Known Allergies (Unverified , 10/04/16) Patient History Past Medical History: see triage record Past Surgical History: other - Septoplasty Social History: Denies: smoking, alcohol use, drug use Social History Narrative Lives in an apartment Reviewed Nursing Documentation: PMH: Agreed; PSxH: Agreed Nursing Documentation-PMH Past Medical History: No History, Except For Hx Hypertension: No Hx Pacemaker: No Hx Asthma: No Hx COPD: No Hx Diabetes: No Hx Cancer: No Hx Dialysis: No Hx Neurological Problems: No Hx Cerebrovascular Accident: No Hx Seizures: No Review of Systems All Other Systems: negative except mentioned in HPI Physical Exam Vital Signs Date Time Temp Pulse Resp B/P (MAP) Pulse Ox O2 Delivery O2 Flow Rate FiO2 10/18/18 09:35 98.1 58 16 123/80 (94) 98 Room Air Sp02 EP Interpretation: reviewed, normal General Appearance: well appearing, no apparent distress, GCS 15 Head: normocephalic, atraumatic Eyes: bilateral eye normal inspection, bilateral eye PERRL ENT: hearing grossly normal, normal voice, moist mucus membranes Neck: full range of motion, supple Respiratory: no respiratory distress, speaking full sentences Musculoskeletal: no calf tenderness Neurologic: alert, oriented x3, normal gait, grossly normal Psychiatric: mood/affect normal, no suicidal/homicidal ideation, other - Flat affect Skin: no rash Medical Decision Making Diagnostic Impression: Primary Impression: Palpitations Additional Impression: Environmental allergies ER Course Patient presents with palpitations which she feels is related to allergies. I differential includes acute myocardial infarction, arrhythmia, electrolyte imbalance amongst others. The patient does not want blood work done however and EKG will be performed. EKG with sinus bradycardia no acute changes and normal QT. interval Discussed treatment plan with patient and the need to follow-up with his doctor. No medical emergency at this time. Patient stable for outpatient observation and treatment. EKG Diagnostic Results Rate: bradycardiac - 55 Rhythm: NSR ST Segments: no acute changes Rhythm Strip Diag. Results EP Interpretation: yes Rhythm: NSR, no PVC's, no ectopy Last Vital Signs Date Time Temp Pulse Resp B/P (MAP) Pulse Ox O2 Delivery O2 Flow Rate FiO2 10/18/18 10:18 98.1 60 14 123/80 98 Room Air Status: unchanged Disposition: HOME, SELF-CARE Condition: Stable Scripts Triamcinolone Acetonide (Nasacort) 10.8 Ml [place] 1 SPR NS BID PRN for allergies, #1 UNIT Prov: Malcolm Westbrook MD 10/18/18 Malcolm Westbrook MD October 18, 2018 09:54
[2018-10-18] MEDS ORDERED: NASACORT10.8 ML NS (10:14)
[2018-10-18 10:18] VITALS: BP 123/80
--- NOTE | 2018-10-18 10:18 | NUR ---
ER DISCHARGE NOTE: Patient is cleared to be discharged per ERMD, pt is aox4, on room air, with stable vital signs. pt was given dc and prescription instructions, pt was able to verbalize understanding, pt id band removed without complications. pt is able to ambulate with steady gait. pt took all belongings.
--- NOTE | 2018-10-19 16:03 | Cardiology Report ---
APPROVED REPORT EKG Measurement Heart [id number] Sinus bradycardia Otherwise normal ECG
== END 2018-10-18 10:18 | disposition home or self-care (01) ==
LOC: EMR 10:00
DX: R00.2 Palpitations (principal); T78.40XA Allergy, unspecified, initial encounter; X58.XXXA Exposure to other specified factors, initial encounter; B20 Human immunodeficiency virus [HIV] disease; R00.1 Bradycardia, unspecified
CPT/HCPCS: 93005; 99283

== ENCOUNTER 2019-05-05 20:33 | Emergency (ER) | payer OTHER ==
[~2019-05-05] VITALS: Ht 172.7 cm; Wt 72.6 kg
[~2019-05-05 20:33] MED LIST changes: +NASACORT10.8 ML NS
[2019-05-05 20:45] VITALS: BP 120/80
[2019-05-05 20:50] VITALS: BP 120/80
[2019-05-05] MEDS ORDERED: ZYRTEC10 MG ORAL (20:52)
--- NOTE | 2019-05-05 20:52 | NUR ---
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 pt states that he is "not feeling well" and feels like his "heart is beating fast." pt denies any chest pain or SOB at this time
--- NOTE | 2019-05-05 21:02 | Emergency Room Report ---
History of Present Illness General Chief Complaint: General Complaint Source: Patient Present Illness HPI Patient presents with complaints of having palpitations sensation that happened about 1 hour ago this was a short episode and reports that while he was coughing he felt a sensation Denies any headache denies any chest pain denies any active chest pain Currently Denies any nausea vomiting he reports that he was having some sensation of allergies Which precipitated the cough Allergies: Coded Allergies: No Known Allergies (Unverified , 10/04/16) Patient History Past Medical History: see triage record Reviewed Nursing Documentation: PMH: Agreed; PSxH: Agreed Nursing Documentation-PMH Hx Hypertension: No Hx Pacemaker: No Hx Asthma: No Hx COPD: No Hx Diabetes: No Hx Cancer: No Hx Dialysis: No Hx Neurological Problems: No Hx Cerebrovascular Accident: No Hx Seizures: No Review of Systems All Other Systems: negative except mentioned in HPI Physical Exam Vital Signs Date Time Temp Pulse Resp B/P (MAP) Pulse Ox O2 Delivery O2 Flow Rate FiO2 05/05/19 20:38 97.9 56 16 120/80 (93) 98 Room Air Sp02 EP Interpretation: reviewed, normal General Appearance: well appearing, no apparent distress Head: normocephalic, atraumatic Eyes: bilateral eye PERRL, bilateral eye EOMI ENT: hearing grossly normal, normal pharynx, TMs + canals normal, uvula midline Neck: full range of motion, supple, no meningismus, no bony tend Respiratory: lungs clear, normal breath sounds, no rhonchi, no respiratory distress, no retraction, no accessory muscle use Cardiovascular #1: normal peripheral pulses, regular rate, rhythm, no edema, no gallop, no JVD, no murmur Gastrointestinal: normal bowel sounds, non tender, soft, no mass, no organomegaly, non-distended, no guarding, no hernia, no pulsatile mass, no rebound Musculoskeletal: normal inspection Neurologic: motor strength/tone normal, tread cutter III-XII nml as tested, oriented x3 , sensory intact, responsive Psychiatric: mood/affect normal Skin: no rash Lymphatic: normal inspection, no adenopathy Medical Decision Making Diagnostic Impression: Primary Impression: palpitations ER Course Patient is a fairly complex patient with multiple differential to consideration including but not limited to cardiac cardiopulmonary and vascular emergencies Patient's EKG is normal Patient was provided with a prescription for his allergy symptoms and will have close outpatient follow-up EKG Diagnostic Results Rate: normal Rhythm: NSR ST Segments: no acute changes Rhythm Strip Diag. Results EP Interpretation: yes Rate: 60 Rhythm: NSR, no PVC's, no ectopy Last Vital Signs Date Time Temp Pulse Resp B/P (MAP) Pulse Ox O2 Delivery O2 Flow Rate FiO2 05/05/19 20:38 97.9 56 16 120/80 (93) 98 Room Air Status: improved Disposition: HOME, SELF-CARE Condition: Improved Scripts Cetirizine Hcl* (ZYRTEC*) 10 Mg Tablet 10 MG ORAL DAILY, #12 TAB 0 Refills Prov: Irene Vu DO 05/05/19 Patient Instructions: Palpitations, [id number] Additional Instructions: Patient is provided with the discharge instructions notified to follow up with primary doctor in the next 2-3 days otherwise return to the er with any worsening symptoms. Please note that this report is being documented using [employer]. This can lead to erroneous entry secondary to incorrect interpretation by the dictating instrument. Irene Vu DO May 05, 2019 21:02
== END 2019-05-05 22:05 | disposition home or self-care (01) ==
LOC: EMR 21:00
DX: R00.2 Palpitations (principal)
CPT/HCPCS: 99283

== ENCOUNTER 2019-07-17 13:57 | Emergency (ER) | payer OTHER ==
[~2019-07-17] VITALS: Ht 170.2 cm; Wt 86.2 kg
[~2019-07-17 13:57] MED LIST changes: +PAZEO2.5 ML OP
[2019-07-17 14:12] VITALS: BP 127/80
--- NOTE | 2019-07-17 14:16 | NUR ---
ED Nurse Note: Patient came to ED from home c/o skipped heart beats. Denies chest pain, shortness of breath. No s/s of acute distress. Patient AxO x 4, bed in lowest position.
--- NOTE | 2019-07-17 14:40 | NUR ---
ED Nurse Note: Dr. Westbrook at bedside.
--- NOTE | 2019-07-17 14:46 | Emergency Room Report ---
History of Present Illness General Chief Complaint: General Complaint Source: Patient Present Illness HPI Patient presents complaining about fluttering feeling from his heart that he feels in his neck. He has had these intermittently for a long period of time. He has been given a prescription for atenolol to help with him. He feels there related to stress and he feels some stress at this time. He denies fevers or chills. There is no nausea, vomiting or diarrhea. He has some tightness in the muscles in his back. Occasionally he takes magnesium to help with this. There is no productive cough or sore throat. Allergies: Coded Allergies: No Known Allergies (Unverified , 10/04/16) Patient History Past Medical History: see triage record Social History: Denies: smoking, alcohol use, drug use Social History Narrative Lives in apartment Reviewed Nursing Documentation: PMH: Agreed; PSxH: Agreed Nursing Documentation-PMH Past Medical History: No History, Except For Hx Hypertension: No Hx Pacemaker: No - palpitations Hx Asthma: No Hx COPD: No Hx Diabetes: No Hx Cancer: No Hx Dialysis: No Hx Neurological Problems: No Hx Cerebrovascular Accident: No Hx Seizures: No Review of Systems All Other Systems: negative except mentioned in HPI Physical Exam Vital Signs Date Time Temp Pulse Resp B/P (MAP) Pulse Ox O2 Delivery O2 Flow Rate FiO2 07/17/19 14:05 98.4 64 16 127/80 (96) 95 Room Air Sp02 EP Interpretation: reviewed, normal General Appearance: well appearing, no apparent distress, GCS 15 Head: normocephalic Eyes: bilateral eye normal inspection, bilateral eye PERRL ENT: moist mucus membranes Cardiovascular #1: regular rate, rhythm, no edema Cardiovascular #2: 2+ radial (R) Gastrointestinal: normal inspection Musculoskeletal: gait/station normal Neurologic: alert, grossly normal Psychiatric: other - Flat affect somewhat pressured Medical Decision Making Diagnostic Impression: Primary Impression: Palpitations ER Course Patient presents with fluttering feeling from his heart that he feels in his neck. Differential includes arrhythmia, palpitations, anxiety amongst others. EKG is indicated. Patient already took atenolol earlier today. EKG normal sinus rhythm rate [address]-T wave changes but normal EKG. Patient states he feels better at this time. I offered a prescription for propranolol which she declined. Review of most recent electrolytes normal. Cardiac risk factors nail. Patient stable for outpatient observation and treatment. Last Vital Signs Date Time Temp Pulse Resp B/P (MAP) Pulse Ox O2 Delivery O2 Flow Rate FiO2 07/17/19 14:55 98.4 67 16 127/80 95 Room Air Status: unchanged Disposition: HOME, SELF-CARE Condition: Stable Malcolm Westbrook MD Jul 17, 2019 14:46
--- NOTE | 2019-07-17 14:48 | NUR ---
ED Nurse Note: EKG performed, reviewed by Dr. Westbrook.
[2019-07-17 14:55] VITALS: BP 127/80
--- NOTE | 2019-07-17 14:55 | NUR ---
ER DISCHARGE NOTE: Patient is cleared to be discharged per Dr. Westbrook, pt is aox4, on room air, with stable vital signs. pt was given dc and prescription instructions, pt was able to verbalize understanding, pt id band removed. pt is able to ambulate with steady gait. pt took all belongings.
== END 2019-07-17 14:55 | disposition home or self-care (01) ==
LOC: EMR 14:44
DX: R00.2 Palpitations (principal)
CPT/HCPCS: 93005; 99283

== ENCOUNTER 2019-07-18 18:49 | Emergency (ER) | payer OTHER ==
[~2019-07-18] VITALS: Ht 170.2 cm; Wt 86.2 kg
--- NOTE | 2019-07-18 19:18 | NUR ---
ED Nurse Note: PT WALKED IN TO ED C/O LEFT FOOT INJURY AFTER STEPPING ON A SMALL PIECE OF GLASS ON THE KITCHEN. [facility] CAMP. ERPA AT BEDSIDE.
--- NOTE | 2019-07-18 19:19 | NUR ---
ED Nurse Note: XR AT BEDSIDE.
--- NOTE | 2019-07-18 19:38 | Emergency Room Report ---
History of Present Illness General Chief Complaint: Lower Extremity Injury Source: Patient Present Illness HPI 54-year-old male with unknown psychiatric history here complaining of possible puncture wound with glass in left foot. Denies seeing any glass. Puncture wound noted however there is no bleeding. Appears to be old. Refuses to take any antibiotics since he does not find it necessary reports that he is up-to- date with tetanus shot. Denies tingling numbness, denies any pain at this time. However patient asked to be ruled in via wheelchair. Allergies: Coded Allergies: No Known Allergies (Unverified , 10/04/16) Patient History Past Medical History: see triage record Past Surgical History: none Pertinent Family History: none Immunizations: UTD Reviewed Nursing Documentation: PMH: Agreed; PSxH: Agreed Nursing Documentation-PMH Hx Hypertension: No Hx Pacemaker: No - palpitations Hx Asthma: No Hx COPD: No Hx Diabetes: No Hx Cancer: No Hx Dialysis: No Hx Neurological Problems: No Hx Cerebrovascular Accident: No Hx Seizures: No Review of Systems All Other Systems: negative except mentioned in HPI Physical Exam Vital Signs Date Time Temp Pulse Resp B/P (MAP) Pulse Ox O2 Delivery O2 Flow Rate FiO2 07/18/19 19:02 97.9 60 14 135/80 (98) 99 Room Air Sp02 EP Interpretation: reviewed, normal General Appearance: no apparent distress, alert, GCS 15, non-toxic Head: normocephalic, atraumatic Eyes: bilateral eye normal inspection, bilateral eye PERRL ENT: hearing grossly normal, normal pharynx, no angioedema, normal voice Neck: full range of motion, supple/symm/no masses Respiratory: chest non-tender, lungs clear, normal breath sounds, speaking full sentences Cardiovascular #1: regular rate, rhythm, no edema Cardiovascular #2: 2+ dorsalis pedis (R), 2+ dorsalis pedis (L) Gastrointestinal: normal bowel sounds, non tender, soft, non-distended, no guarding, no rebound Rectal: deferred Musculoskeletal: back normal, digits/nails normal, other - Small puncture wound left foot Neurologic: alert, motor strength/tone normal, oriented x3, sensory intact, responsive, speech normal Psychiatric: judgement/insight normal, memory normal, mood/affect normal, no suicidal/homicidal ideation Skin: no rash Lymphatic: no adenopathy Medical Decision Making PA Attestation All my diagnosis and treatment plans were reviewed ad discussed with my supervising physician Dr. Diop Diagnostic Impression: Primary Impression: Puncture wound ER Course 54-year-old male with unknown psychiatric history here complaining of possible puncture wound with glass in left foot. Denies seeing any glass. Puncture wound noted however there is no bleeding. Appears to be old. Refuses to take any antibiotics since he does not find it necessary reports that he is up-to- date with tetanus shot. Denies tingling numbness, denies any pain at this time. However patient asked to be ruled in via wheelchair. Ddx considered but are not limited to : Cellulitis, puncture wound, superficial infection, abscess Vital signs: are WNL, pt. is afebrile H&PE are most consistent with: Noninfected puncture wound ORDERS: Left foot x-ray ED INTERVENTIONS: None required at this time. DISCHARGE: At this time pt. is stable for d/c to home. Will provide printed patient care instructions, and any necessary prescriptions. Care plan and follow up instructions have been discussed with the patient prior to discharge. Patient to follow-up primary care provider, since he refused to take antibiotics patient to follow primary care doctor Other X-Ray Diagnostic Results Other X-Ray Diagnostic Results : X-Ray ordered: left foot # of Views/Limited Vs Complete: 3 View Indication: Pain EP Interpretation: Yes PA Xray: Interpretation reviewed, by supervising MD, and agrees with findings. Interpretation: no dislocation, no soft tissue swelling, no fractures, other - no fb Impression: No acute disease Electronically Signed by: Erich Sotelo PA-C Last Vital Signs Date Time Temp Pulse Resp B/P (MAP) Pulse Ox O2 Delivery O2 Flow Rate FiO2 07/18/19 19:02 97.9 60 14 135/80 (98) 99 Room Air Disposition: HOME, SELF-CARE Condition: Stable Patient Instructions: Puncture Wound, [id number] Additional Instructions: Take medication as directed, follow-up with your primary care doctor, if worsening symptoms return to the emergency room Erich Burns Jul 18, 2019 19:38
[2019-07-18 19:44] VITALS: BP 135/80
--- NOTE | 2019-07-18 19:44 | NUR ---
ER DISCHARGE NOTE: Patient is cleared to be discharged per ERMD, pt is aox4, on room air, with stable vital signs. pt was given dc instructions, pt was able to verbalize understanding, pt id band removed without complications. pt is able to ambulate with steady gait. pt took all belongings.
--- NOTE | 2019-07-19 12:26 | Diagnostic Imaging Report ---
Indication: Foot pain Comparison: None Findings: 2 views of the left foot were obtained. No acute fractures, malalignment, erosions or periostitis are identified. Soft tissues are unremarkable. Impression: No acute findings
== END 2019-07-18 19:44 | disposition home or self-care (01) ==
LOC: EMR 19:00
DX: S91.332A Puncture wound without foreign body, left foot, initial encounter (principal); W25.XXXA Contact with sharp glass, initial encounter; Y92.9 Unspecified place or not applicable
CPT/HCPCS: 99283

== ENCOUNTER 2019-08-11 21:01 | Emergency (ER) | payer OTHER ==
[~2019-08-11] VITALS: Ht 170.2 cm; Wt 86.2 kg
[2019-08-11 21:15] VITALS: BP 142/87
--- NOTE | 2019-08-11 21:26 | Emergency Room Report ---
History of Present Illness General Chief Complaint: General Complaint Source: Patient Present Illness HPI This a 54-year-old male well-known to me in this ER. He presents with chief complaint of chest tightness and palpitation. He said this occurred earlier today. He is asymptomatic now. He was concerned that someone else moved next door to him in his apartment. That person is been coughing and runny nose. This occurred for a week. He actually called the correctional manager regarding this. He denies any symptoms. No nausea no vomiting. No fever chills. Does have a history of anxiety and psychiatric issues. COVID-19 risk:Contact w/high r: No COVID-19 risk:Travel to affect: No Has patient experienced rocha: No Allergies: Coded Allergies: No Known Allergies (Unverified , 10/04/16) Patient History Past Medical History: see triage record, old chart reviewed Past Surgical History: none Pertinent Family History: none Social History: Denies: smoking Immunizations: other Reviewed Nursing Documentation: PMH: Agreed; PSxH: Agreed Nursing Documentation-PMH Hx Hypertension: No Hx Pacemaker: No - palpitations Hx Asthma: No Hx COPD: No Hx Diabetes: No Hx Cancer: No Hx Dialysis: No Hx Neurological Problems: No Hx Cerebrovascular Accident: No Hx Seizures: No Review of Systems Eye: Denies: eye pain, blurred vision ENT: Denies: ear pain, nose congestion, throat swelling Respiratory: Denies: cough, shortness of breath Cardiovascular: Reports: palpitations; Denies: chest pain Gastrointestinal: Denies: abdominal pain, diarrhea, nausea, vomiting Musculoskeletal: Denies: back pain, joint pain Skin: Denies: rash Neurological: Denies: headache, numbness Endocrine: Denies: increased thirst, increased urine Hematologic/Lymphatic: Denies: easy bruising All Other Systems: negative except mentioned in HPI Physical Exam Vital Signs Date Time Temp Pulse Resp B/P (MAP) Pulse Ox O2 Delivery O2 Flow Rate FiO2 08/11/19 21:03 97.7 73 19 142/87 (105) 98 Vitals unremarkable Sp02 EP Interpretation: reviewed, normal General Appearance: well appearing, no apparent distress, alert Head: normocephalic, atraumatic Eyes: bilateral eye PERRL, bilateral eye EOMI ENT: hearing grossly normal, normal pharynx Neck: full range of motion, supple, no meningismus Respiratory: chest non-tender, lungs clear, normal breath sounds Cardiovascular #1: regular rate, rhythm, no murmur Gastrointestinal: normal bowel sounds, non tender, no mass, no organomegaly, no bruit, non-distended Musculoskeletal: back normal, normal range of motion, gait/station normal Psychiatric: other - flat affect Medical Decision Making Diagnostic Impression: Primary Impression: Encounter for generalized patient complaints Additional Impression: Palpitations ER Course Patient presents with generalized complaint with palpitation and chest tightness. EKG is normal. Suspect this is more psychogenic anything else. He is been here several times for the same thing. Will discharge home. Does not meet criteria for rocha virus testing. EKG Diagnostic Results Rate: normal Rhythm: NSR ST Segments: no acute changes Last Vital Signs Date Time Temp Pulse Resp B/P (MAP) Pulse Ox O2 Delivery O2 Flow Rate FiO2 08/11/19 21:15 97.7 85 19 142/87 98 Status: unchanged Disposition: HOME, SELF-CARE Condition: Stable Additional Instructions: Follow up with your doctor in 7 days but return if worse. Josh Reed MD Aug 11, 2019 21:26
[2019-08-11 21:30] VITALS: BP 142/87
== END 2019-08-11 21:30 | disposition home or self-care (01) ==
LOC: EMR 21:27
DX: Z00.8 Encounter for other general examination (principal); R00.2 Palpitations
CPT/HCPCS: 93005; 99283

== ENCOUNTER 2020-01-10 06:52 | Emergency (ER) | payer SELFPAY ==
[~2020-01-10] VITALS: Ht 170.2 cm; Wt 86.2 kg
--- NOTE | 2020-01-10 07:10 | NUR ---
ED Nurse Note: Pt walked in c/o "muscle tension and palpations" since few days. Pt stated episodes occur more often with stress and anxiety. Pt is AOx4, VSS, on RA, calm and cooperative. Pt denies shortness of breath nor chest pain; breathing even and unlabored. Placed on bed.
[2020-01-10 07:16] VITALS: BP 129/86
--- NOTE | 2020-01-10 07:16 | Emergency Room Report ---
History of Present Illness General Chief Complaint: Palpitations Source: Patient Present Illness HPI Patient is a 54-year-old male past medical history of HIV, anxiety and "skipped beats" on magnesium at home who presents to the ER complaining of intermittent palpitations. He states that he has some tension in his upper back because he is angry because his neighbor has a son who makes a lot of noise at night and he is unable to sleep. He states that he feels very stressed. He denies any chest pain or shortness of breath. He denies any fever or chills. He states that he is currently asymptomatic. He is declining any blood work and only wants an EKG done. He also is declining any medications. Patient has been seen here in the emergency department for the same symptoms in the past. Allergies: Coded Allergies: No Known Allergies (Unverified , 10/04/16) COVID-19 Screening Contact w/high risk pt: No Recent Travel to affected area: No Experienced COVID-19 symptoms?: No COVID-19 Testing performed ENERGY CONTROL OFFICER: No Patient History Reviewed Nursing Documentation: PMH: Agreed; PSxH: Agreed Nursing Documentation-PMH Hx Hypertension: No Hx Pacemaker: No - palpitations Hx Asthma: No Hx COPD: No Hx Diabetes: No Hx Cancer: No Hx Dialysis: No Hx Neurological Problems: No Hx Cerebrovascular Accident: No Hx Seizures: No Review of Systems All Other Systems: negative except mentioned in HPI Physical Exam Vital Signs Date Time Temp Pulse Resp B/P (MAP) Pulse Ox O2 Delivery O2 Flow Rate FiO2 01/10/20 07:05 98.4 52 16 129/86 (100) 98 Room Air Sp02 EP Interpretation: reviewed, normal General Appearance: no apparent distress, alert, GCS 15, non-toxic Head: normocephalic, atraumatic Eyes: bilateral eye normal inspection, bilateral eye PERRL ENT: hearing grossly normal, normal pharynx, no angioedema, normal voice Neck: full range of motion, supple/symm/no masses Respiratory: chest non-tender, lungs clear, normal breath sounds, speaking full sentences Cardiovascular #1: normal capillary refill, bradycardia Gastrointestinal: non tender, soft, no guarding, no rebound Rectal: deferred Musculoskeletal: normal range of motion, no calf tenderness, no lower extremity edema Neurologic: reinsurance clerk III-XII nml as tested, oriented x3 Psychiatric: no suicidal/homicidal ideation, other - appears anxious Skin: no rash Lymphatic: no adenopathy Medical Decision Making Diagnostic Impression: Primary Impression: Palpitations ER Course Patient asymptomatic while in the emergency department Patient with history of similar symptoms in the past. Patient declining any medication or lab work. Patient's EKG demonstrates sinus bradycardia, patient is on a beta-damaris. Patient has old T wave inversions in III which is slightly more pronounced on today's EKG. Patient denies any chest pain or shortness of breath. He does not want any further work-up at this time. After discussing risks and benefits of further diagnostics, treatment plans, as well as indications for and risks of admission, the patient is agreeable to being discharged home. I have explained that their evaluation and treatment in the emergency department today is an important step towards them achieving better health but that their evaluation today is not intended to replace further evaluation and treatment by a physician in their local clinic. I have explained that while the current findings suggest no immediate life threatening emergency they will require further evaluation and treatment by a physician of their choice in their area. They understand that it will be necessary for them to review the final reports of their ED visit with their clinic physician. We have reviewed indications for return to the Emergency Department. I have explained that additional time may need to pass and/or additional testing as an outpatient may be necessary before a definitive diagnosis can be made. They tell me they are willing to follow up as instructed within the timeframe I recommend. They appear to understand what we discussed. Additionally they understand that if they are unable to be seen by an outpatient physician they are welcome, and in fact should, return to the Emergency Department for a repeat evaluation. The patient is stable at time of discharge. EKG Diagnostic Results EKG Time: 07:17 EP Interpretation: Vivian Welsh MD Rate: bradycardiac - 39 bpm Rhythm: other - Sinus bradycardia Other Impression T wave inversion in III which was there previously slightly more pronounced ASA given to the pt in ED: No Last Vital Signs Date Time Temp Pulse Resp B/P (MAP) Pulse Ox O2 Delivery O2 Flow Rate FiO2 01/10/20 07:05 98.4 52 16 129/86 (100) 98 Room Air Disposition: HOME, SELF-CARE Condition: Stable Referrals: NOT CHOSEN IPA/,REFERRING (PCP) Additional Instructions: The patient was provided with discharge instructions, notified to follow-up with a primary care doctor and or specialist in the next 24-48 hours, and to return to the ED if they have worsening of their symptoms. Please note that this report is being documented using [employer] technology. This can lead to erroneous entry secondary to incorrect interpretation by the dictating instrument. Vivian Welsh M.D. Jan 10, 2020 07:16
[2020-01-10 07:25] VITALS: BP 128/85
--- NOTE | 2020-01-10 07:25 | NUR ---
ER DISCHARGE NOTE: Patient is cleared to be discharged per ERMD, pt is aox4, on room air, with stable vital signs. pt was given dc and prescription instructions, pt was able to verbalize understanding, pt id band removed. pt is able to ambulate with steady gait. pt took all belongings.
== END 2020-01-10 07:25 | disposition home or self-care (01) ==
LOC: EMR 07:09
DX: R00.2 Palpitations (principal); B20 Human immunodeficiency virus [HIV] disease; F41.9 Anxiety disorder, unspecified; M54.6 Pain in thoracic spine; R00.1 Bradycardia, unspecified
CPT/HCPCS: 93005; 99283

== ENCOUNTER 2020-01-19 16:29 | Emergency (ER) | payer OTHER ==
[~2020-01-19] VITALS: Ht 170.2 cm; Wt 86.2 kg
[2020-01-19 16:43] VITALS: BP 132/82
--- NOTE | 2020-01-19 16:45 | NUR ---
ED Nurse Note:pt. came with c/o heart palpitations, pt. is A/Ox4 ambulatory, refused to be connected to the monitor, just want to have EKG
--- NOTE | 2020-01-19 16:55 | NUR ---
ED Nurse Note:pt. refused iv line placement and IV fluids, notified
[2020-01-19 17:01] LABS: BASOPHILS % (AUTO) 0.7 % (0.0-2.0); EOSINOPHILS % (AUTO) 4.1 % (0.0-3.0); HEMOGLOBIN 15.6 G/DL (14.2-18.0); LYMPHOCYTES % (AUTO) 48.7 % (20.0-45.0); MEAN CORPUSCULAR VOLUME 91 FL (80-99); MONOCYTES % (AUTO) 4.7 % (1.0-10.0); NEUTROPHILS % (AUTO) 41.8 % (45.0-75.0); PLATELET COUNT 196 K/UL (150-450); RED BLOOD COUNT 4.94 M/UL (4.70-6.10); RED CELL DISTRIBUTION WIDTH 12.8 % (11.6-14.8); WHITE BLOOD COUNT 5.7 K/UL (4.8-10.8)
[2020-01-19 17:15] LABS: ANION GAP 11 mmol/L (5-15); BLOOD UREA NITROGEN 18 mg/dL (7-18); CALCIUM 9.7 MG/DL (8.5-10.1); CARBON DIOXIDE 26 MMOL/L (21-32); CHLORIDE 103 MMOL/L (98-107); CREATININE 1.2 MG/DL (0.55-1.30); POTASSIUM 3.7 MMOL/L (3.5-5.1); SODIUM 140 MMOL/L (136-145)
--- NOTE | 2020-01-19 17:24 | Emergency Room Report ---
History of Present Illness General Chief Complaint: General Complaint Source: Patient Present Illness HPI This patient is well-known to [facility]. He presents for the same symptoms quite regularly. He presents again today stating that he felt some skipped beats. He denies chest pain or shortness of breath. Denies fever chills. Denies cough or congestion. He denies abdominal pain. He denies nausea or vomiting. He has no other complaints. Allergies: Coded Allergies: No Known Allergies (Unverified , 10/04/16) COVID-19 Screening Contact w/high risk pt: No Recent Travel to affected area: No Experienced COVID-19 symptoms?: No COVID-19 Testing performed CONTRACT MODELER: No Patient History Past Medical History: see triage record, HIV Social History: Denies: smoking, alcohol use, drug use Reviewed Nursing Documentation: PMH: Agreed; PSxH: Agreed Nursing Documentation-PMH Past Medical History: No History, Except For Hx Cardiac Problems: Yes - HIV Hx Hypertension: No Hx Pacemaker: No - palpitations Hx Asthma: No Hx COPD: No Hx Diabetes: No Hx Cancer: No Hx Dialysis: No Hx Neurological Problems: No Hx Cerebrovascular Accident: No Hx Seizures: No Review of Systems All Other Systems: negative except mentioned in HPI Physical Exam Vital Signs Date Time Temp Pulse Resp B/P (MAP) Pulse Ox O2 Delivery O2 Flow Rate FiO2 01/19/20 16:32 98.1 57 16 132/82 (99) 97 Room Air Sp02 EP Interpretation: reviewed, normal General Appearance: no apparent distress, alert, GCS 15, non-toxic Head: normocephalic, atraumatic Eyes: bilateral eye normal inspection, bilateral eye PERRL ENT: hearing grossly normal, normal pharynx, no angioedema, normal voice Neck: full range of motion, supple/symm/no masses Respiratory: chest non-tender, lungs clear, normal breath sounds, no respiratory distress, no retraction, no accessory muscle use, speaking full sentences Cardiovascular #1: regular rate, rhythm, no edema Gastrointestinal: normal inspection, non-distended Rectal: deferred Musculoskeletal: back normal, normal range of motion, gait/station normal, non- tender Neurologic: alert, motor strength/tone normal, oriented x3, sensory intact, responsive, speech normal Psychiatric: judgement/insight normal, memory normal, mood/affect normal, no suicidal/homicidal ideation Skin: no rash, normal color Medical Decision Making Diagnostic Impression: Primary Impression: Palpitations EKG Diagnostic Results Rate: normal Rhythm: NSR ST Segments: no acute changes Rhythm Strip Diag. Results EP Interpretation: yes Rate: 60's Rhythm: NSR, no PVC's, no ectopy Chest X-Ray Diagnostic Results Chest X-Ray Diagnostic Results : Chest X-Ray Ordered: Yes # of Views/Limited/Complete: 1 View Indication: Other EP Interpretation: Yes Interpretation: no consolidation, no effusion, no pneumothorax, no acute cardiopulmonary disease Impression: No acute disease Electronically Signed by: Damaris Russo DO Last Vital Signs Date Time Temp Pulse Resp B/P (MAP) Pulse Ox O2 Delivery O2 Flow Rate FiO2 01/19/20 16:43 98.1 60 16 132/82 97 Room Air Referrals: NON PHYSICIAN (PCP) Damaris Russo DO Jan 19, 2020 17:24
[2020-01-19 17:27] LABS: ALANINE AMINOTRANSFERASE 41 U/L (12-78); ALBUMIN 4.2 G/DL (3.4-5.0); ALBUMIN/GLOBULIN RATIO 1.1 (1.0-2.7); ALKALINE PHOSPHATASE 62 U/L (46-116); ASPARTATE AMINO TRANSFERASE 33 U/L (15-37); BILIRUBIN,TOTAL 0.5 MG/DL (0.2-1.0)
[2020-01-19 17:46] LABS: APPEARANCE,URINE CLEAR; BILIRUBIN, URINE NEGATIVE (NEGATIVE); GLUCOSE, URINE (UA) NEGATIVE (NEGATIVE); KETONES,URINE 4+ (NEGATIVE); LEUKOCYTE ESTERASE ,URINE NEGATIVE (NEGATIVE); NITRITE,URINE NEGATIVE (NEGATIVE); PH,URINE 6 (4.5-8.0); PROTEIN,URINE NEGATIVE (NEGATIVE); UROBILINOGEN,URINE NORMAL MG/DL (0.0-1.0)
[2020-01-19 17:59] LABS: COLOR,URINE YELLOW
[2020-01-19 18:00] VITALS: BP 130/79
--- NOTE | 2020-01-19 18:05 | Diagnostic Imaging Report ---
Indication: Chest pain, palpitations Technique: One view of the chest Comparison: 05/31/2017 Findings: There is atelectasis at the left lateral lung base. The lungs and pleural spaces are otherwise clear. The heart size is upper limits of normal. Impression: No acute process Left lateral basilar atelectasis
--- NOTE | 2020-01-19 18:07 | NUR ---
AMA:pt. didn't want to wait for his labs results and d/c home, he signed AMA form and left ER with steady gait and A/ox4, ER MD is notified SEE AMA FORM.
[2020-01-19 18:10] VITALS: BP 130/79
== END 2020-01-19 18:10 | disposition left against medical advice (07) ==
LOC: EMR 17:00
DX: R00.2 Palpitations (principal); Z86.2 Personal history of diseases of the blood and blood-forming organs and certain disorders involving the immune mechanism
CPT/HCPCS: 36415; 71045; 80053; 80307; 81003; 84439; 84443; 84484; 85025; 93005; 99283

== ENCOUNTER 2020-03-03 15:39 | Emergency (ER) | payer OTHER ==
[~2020-03-03] VITALS: Ht 170.2 cm; Wt 88.5 kg
[2020-03-03 15:45] VITALS: BP 120/71
--- NOTE | 2020-03-03 15:55 | NUR ---
ED Nurse Note: Patient from home and walked in due to coughing with chest pain while using his phone this afternoon. Denies any pain upon ED arrival. Pt is AAO x4, ambulatory, Speaks in clear sentences.
--- NOTE | 2020-03-03 16:25 | Emergency Room Report ---
History of Present Illness General Chief Complaint: Upper Respiratory Illness Source: Medical Record Present Illness HPI 54 YO Male with no cardiac hx presents to the ED C/o Cough, chest tightness/pain, and sore throat x 1 day. Pt. reports acute onset while talking on the phone this morning. He reports his symptoms resolved spontaneously on their own after several hours. Pt. denies fevers or chills. he denies pain at this time. Pt. reports he suspects his symptoms were due to allergies. pt. denies sneezing. He denies wheezing or SOB. Pt. denies paresthesias. Pt. now denies cough at this time. No other aggravating or relieving factors, no symptoms at this time. Allergies: Coded Allergies: No Known Allergies (Unverified , 10/04/16) COVID-19 Screening Contact w/high risk pt: No Recent Travel to affected area: No Experienced COVID-19 symptoms?: No COVID-19 Testing performed SEO INTERN: No Patient History Past Medical History: see triage record Past Surgical History: none Pertinent Family History: none Reviewed Nursing Documentation: PMH: Agreed; PSxH: Agreed Nursing Documentation-PMH Past Medical History: No History, Except For Hx Cardiac Problems: Yes - HIV Hx Hypertension: No Hx Pacemaker: No - palpitations Hx Asthma: No Hx COPD: No Hx Diabetes: No Hx Cancer: No Hx Dialysis: No Hx Neurological Problems: No Hx Cerebrovascular Accident: No Hx Seizures: No Review of Systems All Other Systems: negative except mentioned in HPI Physical Exam Vital Signs Date Time Temp Pulse Resp B/P (MAP) Pulse Ox O2 Delivery O2 Flow Rate FiO2 03/03/20 15:45 97.7 60 18 120/71 (87) 95 Room Air Sp02 EP Interpretation: reviewed, normal General Appearance: no apparent distress, alert, GCS 15, non-toxic Head: normocephalic, atraumatic Eyes: bilateral eye normal inspection, bilateral eye PERRL ENT: hearing grossly normal, normal voice, TMs + canals normal, uvula midline, moist mucus membranes Neck: full range of motion, no meningismus, no bony tend Respiratory: chest non-tender, lungs clear, normal breath sounds, no respiratory distress, no retraction, no accessory muscle use, no wheezing, speaking full sentences Cardiovascular #1: regular rate, rhythm, no edema, normal capillary refill Musculoskeletal: back normal, normal range of motion, gait/station normal, non- tender Neurologic: alert, motor strength/tone normal, oriented x3, sensory intact, responsive, speech normal Psychiatric: judgement/insight normal Skin: no rash, normal color Lymphatic: no adenopathy Medical Decision Making PA Attestation Dr. Al is my supervising Physician whom patient management has been discussed with. Diagnostic Impression: Primary Impression: Cough ER Course 54 YO Male with no cardiac hx presents to the ED C/o Cough, chest tightness/pain, and sore throat x 1 day. Pt. reports acute onset while talking on the phone this morning. He reports his symptoms resolved spontaneously on their own after several hours. Pt. denies fevers or chills. he denies pain at this time. Pt. reports he suspects his symptoms were due to allergies. pt. den ies sneezing. He denies wheezing or SOB. Pt. denies paresthesias. Pt. now denies cough at this time. No other aggravating or relieving factors, no symptoms at this time. Ddx considered but are not limited to URI, pneumonia, PE, strep pharyngitis, meningitis, COVID-19, asthma, bronchitis, IA, PE just to name a few. Vital signs: Pt. is afebrile, the remaining VS are WNL H&PE are most consistent with transient episode of bronchitis with cough- no meningeal signs, oropharynx is not involved, no evidence of bacterial infection at this time. Pt. NAD, non-toxic in appearance. Pt. not in resp. distress. ORDERS: -EKG: WNL ED INTERVENTIONS: None required at this time. -I do not identify an emergent condition at this time. With current presentation, pt. is stable for close outpatient follow up and conservative treatment. D/w pt. to return promptly to ED with worsening or new symptoms.- Pt. verbalizes' understanding and agreement with proposed treatment plan. DISCHARGE: At this time pt. is stable for d/c to home. Will provide printed patient care instructions, and any necessary prescriptions. Care plan and follow up instructions have been discussed with the patient prior to discharge. EKG Diagnostic Results EP Interpretation: Dr. Al Rate: normal - 67 Rhythm: NSR ST Segments: no acute changes ASA given to the pt in ED: No PA Scribe Text This Interpretation was scribed by INDIRA East. Last Vital Signs Date Time Temp Pulse Resp B/P (MAP) Pulse Ox O2 Delivery O2 Flow Rate FiO2 03/03/20 15:55 60 18 Room Air 03/03/20 15:45 97.7 120/71 (87) 95 Status: improved Disposition: HOME, SELF-CARE Condition: Stable Patient Instructions: Cough, Adult, [id number] Additional Instructions: Take medications as directed. Follow up with a Primary Care Provider in 3-5 days, even if your symptoms have resolved. --Please review list of primary care clinics, if you do not already have a primary care provider Return sooner to ED if new symptoms occur, or current symptoms become worse. - Please note that this Emergency Department Report was dictated using Personal Factoryvendor analyst technology software, occasionally this can lead to erroneous entry secondary to interpretation by the dictation equipment. Nery East Mar 03, 2020 16:25
[2020-03-03 16:43] VITALS: BP 134/68
--- NOTE | 2020-03-03 16:43 | NUR ---
ER DISCHARGE NOTE: Patient is cleared to be discharged per PA, pt is aox4, on room air, with stable vital signs. pt was given dc instructions, pt was able to verbalize understanding, pt id band removed. pt is able to ambulate with steady gait. pt took all belongings.
== END 2020-03-03 16:43 | disposition home or self-care (01) ==
LOC: EMR 16:05
DX: R05 Cough (principal); R07.0 Pain in throat; R07.9 Chest pain, unspecified; B20 Human immunodeficiency virus [HIV] disease
CPT/HCPCS: 99283

== ENCOUNTER 2020-05-02 14:16 | Emergency (ER) | payer OTHER ==
[~2020-05-02] VITALS: Ht 170.2 cm; Wt 86.2 kg
--- NOTE | 2020-05-02 14:45 | NUR ---
ED Nurse Note: Pt walked in c/o chest tightness since this morning. Pt has a cough that patient believes is related to weather. Denies SOB at this time. Denies n/v/d. Respirations even and unlabored on room air. Vitals stable as documented. A+Ox4, speaking in complete sentences.
--- NOTE | 2020-05-02 15:06 | NUR ---
ED Nurse Note: pt refusing to give urine sample and get IV. He was willing to let staff draw blood. blood sent to lab Addendum: 05/02/20 at 1632 by ESTRADA ED INDIRA powers
[2020-05-02 15:19] VITALS: BP 128/82
--- NOTE | 2020-05-02 15:30 | Diagnostic Imaging Report ---
Indication: Reason For Exam: Chest PAIN Technique: Single AP view of the chest. Comparison: Chest radiograph dated 01/19/2020 Findings: The cardiomediastinal silhouette is unchanged in appearance. No new airspace consolidation. Persistent streaky left basilar airspace opacity likely representing chronic atelectasis. No pneumothorax or pleural effusion. No acute osseous abnormality. IMPRESSION: No radiographic evidence of acute cardiopulmonary disease.
[2020-05-02 16:13] LABS: BASOPHILS % (AUTO) 1.6 % (0.0-2.0); EOSINOPHILS % (AUTO) 3.3 % (0.0-3.0); HEMATOCRIT 43.9 % (42.0-52.0); LYMPHOCYTES % (AUTO) 39.5 % (20.0-45.0); MEAN CORPUSCULAR VOLUME 91 FL (80-99); NEUTROPHILS % (AUTO) 49.6 % (45.0-75.0); PLATELET COUNT 214 K/UL (150-450); RED BLOOD COUNT 4.84 M/UL (4.70-6.10); RED CELL DISTRIBUTION WIDTH 12.3 % (11.6-14.8); WHITE BLOOD COUNT 5.5 K/UL (4.8-10.8)
[2020-05-02 16:24] LABS: ANION GAP 10 mmol/L (5-15); BLOOD UREA NITROGEN 17 mg/dL (7-18); CALCIUM 9.5 MG/DL (8.5-10.1); CARBON DIOXIDE 26 MMOL/L (21-32); CHLORIDE 104 MMOL/L (98-107); CREATININE 0.9 MG/DL (0.55-1.30); POTASSIUM 4.4 MMOL/L (3.5-5.1); SODIUM 140 MMOL/L (136-145)
[2020-05-02 16:35] LABS: ALANINE AMINOTRANSFERASE 57 U/L (12-78); ALBUMIN/GLOBULIN RATIO 1.1 (1.0-2.7); ALKALINE PHOSPHATASE 71 U/L (46-116); ASPARTATE AMINO TRANSFERASE 49 U/L (15-37); BILIRUBIN,TOTAL 0.6 MG/DL (0.2-1.0)
--- NOTE | 2020-05-02 16:39 | Emergency Room Report ---
History of Present Illness General Chief Complaint: Chest Pain Source: Medical Record Present Illness HPI 55-year-old male with history of anxiety here complaining of few days of chest tightness and shortness of breath. Denies any cough or congestion, fever and chills. Present also has extensive seasonal allergies which have been exacerbated in the past few days. Denies diarrhea, loss of taste and smell. Has not taken medication for symptom relief. Reports that had a recent stress test done within normal limits. Primary doctor is Dr. Delgado. Denies abdominal pain, nausea vomiting, headache and dizziness. Denies tobacco smoke, drug use, and all other associated symptoms. Sitting comfortably with stable vital signs. 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 Patient History Past Medical History: see triage record Past Surgical History: none Pertinent Family History: none Immunizations: UTD Reviewed Nursing Documentation: PMH: Agreed; PSxH: Agreed Nursing Documentation-PMH Past Medical History: No History, Except For Hx Cardiac Problems: Yes - HIV Hx Hypertension: No Hx Pacemaker: No - palpitations Hx Asthma: No Hx COPD: No Hx Diabetes: No Hx Cancer: No Hx Dialysis: No Hx Neurological Problems: No Hx Cerebrovascular Accident: No Hx Seizures: No Review of Systems All Other Systems: negative except mentioned in HPI Physical Exam Vital Signs Date Time Temp Pulse Resp B/P (MAP) Pulse Ox O2 Delivery O2 Flow Rate FiO2 05/02/20 14:30 98.8 77 16 121/80 (94) 95 Room Air Sp02 EP Interpretation: reviewed, normal General Appearance: no apparent distress, alert, GCS 15, non-toxic Head: normocephalic, atraumatic Eyes: bilateral eye normal inspection, bilateral eye PERRL ENT: hearing grossly normal, normal pharynx, no angioedema, normal voice Neck: full range of motion, supple/symm/no masses Respiratory: no respiratory distress, no retraction, no accessory muscle use, speaking full sentences Cardiovascular #1: regular rate, rhythm, no edema Gastrointestinal: soft, non-distended Musculoskeletal: back normal Neurologic: alert, motor strength/tone normal, oriented x3, sensory intact, responsive, speech normal Psychiatric: judgement/insight normal, memory normal, mood/affect normal, no suicidal/homicidal ideation Skin: no rash Lymphatic: no adenopathy Medical Decision Making PA Attestation All my diagnosis and treatment plans were reviewed ad discussed with my supervising physician Dr. Palmer Diagnostic Impression: Primary Impression: Chest pain Additional Impression: Bronchospasm ER Course 55-year-old male with history of anxiety here complaining of few days of chest tightness and shortness of breath. Denies any cough or congestion, fever and chills. Present also has extensive seasonal allergies which have been exacerbated in the past few days. Denies diarrhea, loss of taste and smell. Has not taken medication for symptom relief. Reports that had a recent stress test done within normal limits. Primary doctor is Dr. Delgado. Denies abdominal pain, nausea vomiting, headache and dizziness. Denies tobacco smoke, drug use, and all other associated symptoms. Sitting comfortably with stable vital signs. Ddx considered but are not limited to: NC, Angina, COPD, GERD, Vital signs: are WNL, pt. is afebrile H&PE are most consistent with nonspecific chest pain, bronchospasms most likely secondary to allergies ORDERS: EKG, Chest XR, cardiac labs, albuterol, prednisone ED INTERVENTIONS: None required at this time. DISCHARGE: At this time pt. is stable for d/c to home. Will provide printed patient care instructions, and any necessary prescriptions. Care plan and follow up instructions have been discussed with the patient prior to discharge. Patient take medication as directed, follow primary care provider, follow-up with analytics analyst may be needed, if worsening symptoms return to the emergency room EKG Diagnostic Results Rate: normal Rhythm: NSR ST Segments: no acute changes Other Impression No acute ST changes, minimal possible depression noted in inferior leads however patient reports that has always had normal EKGs and had a recent stress test which was within normal limits. Chest X-Ray Diagnostic Results Chest X-Ray Diagnostic Results : Chest X-Ray Ordered: Yes # of Views/Limited/Complete: 1 View Indication: Chest Pain EP Interpretation: Yes PA Xray: Interpretation reviewed, by supervising MD, and agrees with findings. Interpretation: no consolidation, no effusion, no pneumothorax, no acute cardiopulmonary disease Impression: No acute disease Electronically Signed by: Erich Sotelo PA-C Last Vital Signs Date Time Temp Pulse Resp B/P (MAP) Pulse Ox O2 Delivery O2 Flow Rate FiO2 05/02/20 15:19 71 20 Room Air 05/02/20 15:19 98.6 128/82 97 Disposition: HOME, SELF-CARE Condition: Stable Scripts Albuterol Sulfate (VENTOLIN HFA) 18 Gm Hfa.aer.ad 2 PUFFS INH EVERY 6 HOURS, #18 GM 0 Refills Prov: Erich Burns 05/02/20 Prednisone* (PREDNISONE*) 20 Mg Tablet 40 MG ORAL DAILY for 5 Days, #10 TAB Prov: Erich Burns 05/02/20 Referrals: NON PHYSICIAN (PCP) Patient Instructions: Bronchospasm, Adult, [id number], Nonspecific Chest Pain Additional Instructions: Take medication as directed, follow primary care provider, if worsening symptoms return to the emergency room. He may need to be followed by analytics analyst. Erich Burns May 02, 2020 16:39
[2020-05-02] MEDS ORDERED: PREDNISONE20 MG ORAL (16:40)
[2020-05-02] MEDS ORDERED: VENTOLIN HFA18 GM INH (16:40)
--- NOTE | 2020-05-02 16:44 | NUR ---
ER DISCHARGE NOTE: Patient is cleared to be discharged per ERMD, pt is aox4, on room air, with stable vital signs. pt was given dc and prescription instructions, pt was able to verbalize understanding, pt id band removed . pt is able to ambulate with steady gait. pt took all belongings.
[2020-05-02 17:09] VITALS: BP 132/90
== END 2020-05-02 16:44 | disposition home or self-care (01) ==
LOC: EMR 14:45
DX: J98.01 Acute bronchospasm (principal); R07.9 Chest pain, unspecified; Z21 Asymptomatic human immunodeficiency virus [HIV] infection status
CPT/HCPCS: 71045; 80053; 83880; 84484; 85025; 85379; 85610; 85730; 93005; 99284

== ENCOUNTER 2020-05-13 19:41 | Emergency (ER) | payer OTHER ==
[~2020-05-13] VITALS: Ht 170.2 cm; Wt 86.2 kg
[~2020-05-13 19:41] MED LIST changes: +VENTOLIN HFA18 GM INH
[2020-05-13 19:50] VITALS: BP 129/85
--- NOTE | 2020-05-13 19:50 | NUR ---
ED Nurse Note: PT walked in from home wiht a steady gait. Vitals stable on RA. States that he has constricting pain in his throat and the top of his chest after eating. He is requesting covid testing information as well. Pt is showing no signs of distress.
--- NOTE | 2020-05-13 20:04 | Emergency Room Report ---
History of Present Illness General Chief Complaint: Chest Pain Source: Patient Present Illness HPI Disclaimer: Please note that this report is being documented using CustoraON technology. This can lead to erroneous entry secondary to incorrect interpretation by the dictating instrument. HPI: 55-year-old male history of anxiety presents for evaluation of "chest congestion." Patient states he was eating a salad earlier and believes a piece of lettuce was caught in his throat. He keeps coughing and as a result of which she feels that his throat and upper chest are now overall. Denies shortness of breath, cough prior to eating lunch, chest pain, palpitations, fever, chills, URI symptoms. Patient states he wanted make sure was nothing serious. Does not believe anything is in his throat any longer. 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 EOMI. uvula midline. Nonobstructing tonsils. No pharyngeal edema, erythema or exudate. No foreign body visualized. Normal phonation. Tolerating secretions. Speaking in full sentences. Cardiovascular: RRR. S1 and S2 normal. No murmur appreciated Resp: Normal work of breathing. No cough, wheezing or crackles appreciated Skin: Intact. No abrasions, laceration or rash over the exposed skin MSK: Normal tone and bulk. Moving all extremities. No obvious deformity. Neuro: Awake and alert. Mentating appropriately. Medical Decision Making Diagnostic Impression: Primary Impression: Foreign body sensation ER Course 55-year-old male presents for evaluation of foreign body sensation in his throat. States he had a piece of lettuce caught in his throat earlier today likely the source of his symptoms. See no evidence of obstruction, he is tolerating secretions. Lungs are clear and saturations are within normal limits. Otherwise well-appearing with no other complaints. Do not believe he requires emergent labs, imaging or intervention at this time. He stable for outpatient follow-up and foreign body sensation should resolve on its own. Instructed to return with new or worsening symptoms. He understands and agrees with this treatment plan. Last Vital Signs Date Time Temp Pulse Resp B/P (MAP) Pulse Ox O2 Delivery O2 Flow Rate FiO2 05/13/20 19:41 98.1 58 16 140/88 (105) 96 Room Air Disposition: HOME, SELF-CARE Condition: Stable Referrals: NON PHYSICIAN (PCP) [facility] Additional Instructions: Please follow-up with your primary care doctor in the next 1 to 3 days to discuss this emergency department visit and for reevaluation. If you have any new or worsening symptoms please return to the emergency department for reevaluation. Please note that this report is being documented using DealerSocket technology. This can lead to erroneous entry secondary to incorrect interpretation by the dictating instrument. Nixon Al MD May 13, 2020 20:04
[2020-05-13 20:05] VITALS: BP 135/86
--- NOTE | 2020-05-13 20:05 | NUR ---
ER DISCHARGE NOTE: Patient is cleared to be discharged per ERMD, pt is aox4, on room air, with stable vital signs. pt was given dc instructions, pt was able to verbalize understanding, pt id band removed. pt is able to ambulate with steady gait. pt took all belongings.
== END 2020-05-13 20:05 | disposition home or self-care (01) ==
LOC: EMR 19:54
DX: R09.89 Other specified symptoms and signs involving the circulatory and respiratory systems (principal)
CPT/HCPCS: 99281

== ENCOUNTER 2020-05-20 14:44 | Emergency (ER) | payer OTHER ==
[~2020-05-20] VITALS: Ht 170.2 cm; Wt 81.6 kg
--- NOTE | 2020-05-20 14:58 | NUR ---
ED Nurse Note: pt presents to ED c/o "raspy" voice last night and itchy eyes. denies cough, COB, CP. pt denies taking any meds AGILE TEST LEAD. VSS on triage
[2020-05-20 14:59] VITALS: BP 126/83
--- NOTE | 2020-05-20 15:32 | Emergency Room Report ---
History of Present Illness General Chief Complaint: Allergies Present Illness HPI 55-year-old male with past medical history of allergies presents today after experiencing a throat rattling sensation. Timing was last night. Severity is minimal, quality is rattling. Patient states he has no modifying factors. Other associated signs and symptoms are watery eyes. 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 PULMONARY: No SOB, no cough, no wheezing CARDIAC: No chest pain, No palpitations, no leg swelling GI: No abdominal pain, no vomiting, no diarrhea , no melena or BRBPR : No flank pain, no dysuria, no hematuria, no frequency. MUSCULOSKELETAL: No back pain, no neck pain, no leg pain SKIN: No rash, no itching, no bruising NEUROLOGICAL: No headache, no dizziness, no paresthesia , no focal weakness. 14 point Review of Systems is otherwise negative except per HPI Physical Exam Vital Signs Date Time Temp Pulse Resp B/P (MAP) Pulse Ox O2 Delivery O2 Flow Rate FiO2 05/20/20 14:54 97.7 67 18 126/83 (97) 97 Room Air Other Organ Systems Physical Exam: GENERAL: Awake, alert, nontoxic, in no acute distress EYES: EOMI, conjunctiva without pallor, no watery discharge noted. HEAD/EARS/NOSE/THROAT: NCAT, oral mucosa moist, external nose and ear normal in appearance, oropharynx clear, no swelling or exudates. NECK: supple, nontender, no spasm, no JVD, no cervical adenopathy RESPIRATORY: no stridor, effort normal, no retractions, no accessory muscle use, BS clear bilaterally, no wheezes, no rhonchi, no rales, no rub. CARDIOVASCULAR: RRR, normal S1 S2, no murmur, no peripheral edema ABDOMINAL /GI: soft, nondistended, nontender, BS normal, no masses, no guarding, no Mcburneys point tenderness, no rebound, no Murpheys sign : No CVA tenderness MUSCULOSKELETAL: All extremities are non-tender, no swelling, FROM, normal strength, normal sensation, cap refill <2 seconds in all extremities EXTREMITIES: no leg swelling, pulses: 2+ brisk and normal in all distal extremities SKIN: No rash, skin is warm and dry. No cyanosis, no pallor NEUROLOGICAL: awake, alert and appropriate, oriented x3, speech normal, motor and sensation grossly intact PSYCHIATRIC: Normal mood, normal affect Medical Decision Making PA Attestation [David] Is my supervising Physician whom patient management has been discussed with. Diagnostic Impression: Primary Impression: Environmental allergies ER Course Pt. presents to the ED c/o "rattling in his throat sensation" beginning last night while sleeping. No longer there. Ddx considered but are not limited to allergies, strep pharyngitis, retropharyngeal abscess Vital signs: are WNL, pt. is afebrile H&PE are most consistent with allergies ORDERS: none required at this time, the diagnosis is clinical ED INTERVENTIONS: Exam revealed no evidence of conjunctivitis or clear eye discharge at this time, pharynx revealed no evidence of erythema or swelling or exudates. Do not suspect strep pharyngitis or abscess at this time. Patient states that his sensation only occurs at night and that he suspected allergies because he has gotten his numerous times in the past years around the same time when the weather gets cold. I suspect patient may have allergies or postnasal drip. Recommended [id number] Claritin and saline rinses. No evidence of airway obstruction at this time patient is able to tolerate p.o. Patient states he understands and agrees with plan. Strict ER return cautions given and patient was advised follow-up with primary care physician in 1 to 2 days, he states he will be seeing his primary care physician tomorrow. Vital signs are stable and he is otherwise stable for outpatient care and discharge home. None required at this time. Last Vital Signs Date Time Temp Pulse Resp B/P (MAP) Pulse Ox O2 Delivery O2 Flow Rate FiO2 05/20/20 14:59 97.7 66 18 126/83 97 Room Air Status: unchanged Disposition: HOME, SELF-CARE Condition: Stable Referrals: NON PHYSICIAN (PCP) [facility] Patient Instructions: Allergies Additional Instructions: May take Claritin [id number]. Additionally try saline rinses. Follow up with a Primary Care Provider in 1-2 days, even if your symptoms have resolved. Return sooner to ED if new symptoms occur, or current symptoms become worse. - Please note that this Emergency Department Report was dictated using IEVsound recordist technology software, occasionally this can lead to erroneous entry secondary to interpretation by the dictation equipment. Marisol Ryan PA-C May 20, 2020 15:32
[2020-05-20 15:35] VITALS: BP 126/83
--- NOTE | 2020-05-20 15:35 | NUR ---
ER DISCHARGE NOTE: Patient is cleared to be discharged per ERMD, pt is aox4, on room air, with stable vital signs. pt was given dc and prescription instructions, pt was able to verbalize understanding, pt id band e removed without complications. pt is able to ambulate with steady gait. pt took all belongings.
== END 2020-05-20 15:35 | disposition home or self-care (01) ==
LOC: EMR 15:19
DX: T78.49XA Other allergy, initial encounter (principal); X58.XXXA Exposure to other specified factors, initial encounter
CPT/HCPCS: 99281

== ENCOUNTER 2020-05-27 04:25 | Emergency (ER) | payer OTHER ==
[~2020-05-27] VITALS: Ht 170.2 cm; Wt 86.2 kg
[2020-05-27 04:50] VITALS: BP 130/84
--- NOTE | 2020-05-27 04:50 | NUR ---
ED Nurse Note: Recieved pt walk in from home, here with c/o "my allergies are acting up", states since 1 hour, pt statets only wants covid test and ekg for his PVC's, denies chest pain, no sob or labored breathing, denies fevers or diarrhea or emesis, no other complaints or discomforts.
[2020-05-27] MEDS ORDERED: PROVENTIL HFA6.7 G1 IH (05:01)
[2020-05-27] MEDS ORDERED: GUAIFENESIN DM118 M1 ORAL (05:01)
--- NOTE | 2020-05-27 05:02 | Emergency Room Report ---
History of Present Illness General Chief Complaint: Allergies Source: Patient Present Illness HPI 55-year-old male here with nasal congestion, sneezing, dry cough, and "seasonal allergies" Patient states that he has not tried anything for his symptoms because "it just dries you out anyways". States that when he has his dry cough he feels "PVCs" but denies CP, n/v/d, orthopnea, SOB, hemoptysis, fever, or other symptoms. The patient's symptoms were gradual onset, severity was moderate, duration since several days. Quality: dry cough Past medical history: seasonal allergies Past surgical history: Denies Smoking: Denies Alcohol use: Denies Drug use: Denies Review of systems: CONST: No fevers or chills, No night sweats PULMONARY: ++dry cough, No shortness of breath CARDIAC: No chest pain, No palpitations GI: No vomiting, No diarrhea , No melena_or_BRBPR : No dysuria, No hematuria, No discharge NEURO: No new_focal_weakness_or_numbness, No confusion, No vision changes 14 point Review of Systems is otherwise negative except per HPI Physical Exam: GENERAL: Awake_alert_ nontoxic, no acute distress Spo2 96% on RA -normal EYES: Extraocular muscles are intact. Conjunctivae clear. Lids without swelling ENT: External nose and ear normal_in_appearance. Oropharynx clear. Head_atrauma tic, Moist_oral_mucosa NECK: No JVD. No meningismus. No thyromegaly. Supple. Trachea midline RESP: Normal respiratory effort. Symmetric rise. No stridor. Speaks in complete sentences. No stridor or drooling. CARDIAC: Regular rate and regular rhytm. No_significant pedal edema. ABDOMEN: Soft. Nondistended. Nontender_No_rebound_or_guarding. MSK: Normal muscle tone, without rigidity. Extremities without asymmetric deformity or swelling. SKIN: Warm and dry. No visible cyanosis or pallor NEUROLOGIC: Alert, oriented x3. Motor_and_sensation_grossly_intact. No truncal ataxia. Gait_normal Psych: Normal mood and affect, normal judgment and insight - COORDINATION OF CARE Case was discussed with: Patient I reviewed previous medical records. Patient has been here several times in the past for similar complaint of seasonal allergies. Medical Decision Making/Plan: Differential diagnosis includes URI, bronchitis, viral syndrome, postnasal drip, versus less likely pneumonia, among others. The patient is nontoxic and well-appearing and has no significant shortness of breath or fever . The patient exhibits no evidence of respiratory distress. There is no clinical evidence to suggest pneumonia at this time. The patient's presentation appears consistent with allergic rhinitis vs postnasal drip, without any indication for antibiotics. No evidence of ENT emergency, airway patent, tolerating oral liquids and solids. No stridor or difficulty breathing. Tonsils within normal limits, no evidence of swelling, exudate or strep pharyngitis. No indication for empiric antibiotic treatment. Sublingual space soft. COVID swab was performed and negative. EKG was non ischemic with no arrhythmia. Doubt ACS or PE. The patient was instructed to follow up with their physician in 1-2 days and instructed to return if symptoms worsen with progressively worsening shortness of breath or difficulty breathing, persistent fever, chest pains or discomfort, inability to keep medication or fluids down with or without vomiting, or any other new, worsening or concerning symptoms Allergies: Coded Allergies: No Known Allergies (Unverified , 10/04/16) COVID-19 Screening Contact w/high risk pt: No Recent Travel to affected area: No Experienced COVID-19 symptoms?: No COVID-19 Testing performed ASSISTANT INVENTORY MANAGER: No COVID-19 Screening: Negative COVID-19 COVID-19 Testing Source: [facility] [place] Hx Cardiac Problems: Yes - HIV Hx Hypertension: No Hx Pacemaker: No - palpitations Hx Asthma: No Hx COPD: No Hx Diabetes: No Hx Cancer: No Hx Dialysis: No Hx Neurological Problems: No Hx Cerebrovascular Accident: No Hx Seizures: No Physical Exam Vital Signs Date Time Temp Pulse Resp B/P (MAP) Pulse Ox O2 Delivery O2 Flow Rate FiO2 05/27/20 04:41 98.1 72 20 130/84 (99) 96 Room Air Sp02 EP Interpretation: reviewed, normal Medical Decision Making Diagnostic Impression: Primary Impression: Cough Additional Impressions: Upper respiratory infection Seasonal allergic rhinitis Bronchospasm Bronchitis EKG Diagnostic Results Troponin ordered: No PA Scribe Text 12-lead EKG (interpreted by me) Time: 0502 Indication: Rhythm analysis Tracing visualized and Interpreted by me. Rhythm: Normal sinus rhythm Rate: 62 bpm QTc: 381 Morphology: No_significant_ST_elevations_or_depressions, No STEMI Impression: Normal_sinus_rhythm_without_significant_abnormality Rhythm Strip Diag. Results Rhythm Strip Time: 05:00 EP Interpretation: yes Rate: 72 Rhythm: NSR, no PVC's, no ectopy Reevaluation Time: 05:30 Last Vital Signs Date Time Temp Pulse Resp B/P (MAP) Pulse Ox O2 Delivery O2 Flow Rate FiO2 05/27/20 04:41 98.1 72 20 130/84 (99) 96 Room Air Status: improved Disposition: HOME, SELF-CARE Admit Decision Time: 05:30 Condition: Stable Scripts Cetirizine Hcl (ZyrTEC*) 10 Mg Tab.chew 10 MG PO DAILY for Allergies for 14 Days, #14 TAB Prov: Audelia Hernandez D.O. 05/27/20 Albuterol Sulfate (PROVENTIL HFA) 6.7 Gm Hfa.aer.ad 6.7 GM IH QID for bronchospasm for 5 Days, #6.7 GM Prov: Audelia Hernandez D.O. 05/27/20 Guaifenesin/Dextromethorphan* (Guaifenesin Dm Syrup*) 5 Ml Syrup 5 ML ORAL Q8H PRN for FOR COUGH, #118 ML 0 Refills Prov: Audelia Hernandez D.O. 05/27/20 Referrals: NON PHYSICIAN (PCP) Patient Instructions: Allergies Additional Instructions: Instructions for patient/enterprise mobility architect: Follow up with your physician in 1-2 days. Follow-up with your doctor sooner if your condition requires a more timely clinical reevaluation. Return to the emergency department immediately if you feel that your condition is worsening or if you have any new or concerning symptoms. Review your discharge instructions and take any prescriptions given as instructed. [facility] PROVIDES FREE OR LOW-COST HEALTH SERVICES TO PEOPLE WHO CAN SHOW PROOF THAT THEY LIVE IN [facility]. TO FIND MORE CLINICS PARTNERED WITH THE ON LICENSE OF [facility] TO PROVIDE SERVICE, PLEASE CALL . Your evaluation suggests that you are suffering from a viral infection producing a viral syndrome. If your nasal swab is positive for coronavirus, you will receive a phone call within 48 hours with your result. Symptoms of a viral syndrome may include fever, sore throat, headache, body aches and pains, generalized weakness and fatigue, and runny nose. You do not show signs or symptoms suggestive of a serious or life threatening illness. This illness may be caused by a number of different viruses, including Influenza A or B or COVID-19. These viruses are highly contagious and spread rapidly from person to person via coughing and sneezing of the virus or by contaminated surface contact with nasal or other respiratory secretions. These viruses cause a similar combination of signs and symptoms which are typically much more severe than the common cold. Typically they begin with the rapid onset of fever, often high (over 102), body aches, fatigue, headache, and usually upper respiratory tract infections symptoms such as cough, runny nose, and sore throat. The illness typically lasts 7-10 days, with the fever and feelings of weakness and body aches usually lasting 3-5 days. Your own immune system fights off these infections. Only rarely do secondary bacterial infections occur (such as bacterial pneumonia) and can be serious. At this time your symptoms do not appear serious, however, there are limitations to online visits and if you are not improving you may need to be evaluated by a doctor in person and that doctor may need to do additional tests. INSTRUCTIONS: Illnesses such as yours typically resolve on their own with time however you must remember to stay hydrated and drink 2-3 times your normal fluid intake, as fever and your increased metabolism in fighting the infection uses more water. Fever control is important to help you feel better and to help prevent dehydration. Acetaminophen is an excellent choice for fever control and other symptoms (as long as you are not allergic to the medication). Rest is also important in helping your body fight this infection. Over the counter cough and decongestant medications are safe (as long as you dont have uncontrolled high blood pressure) and may help the cough and congestion slightly. As these viruses are highly contagious, good hand washing habits, and covering your cough and sneeze help prevent spread. Fever can be a sign of a serious infection and it is imperative that you go directly to an Emergency Department for serious symptoms such as weakness, confusion, significant shortness of breath, abdominal pain, or severe headache. Close follow up with a physician is important if you are not improving over the next few days or you experience worsening of your symptoms. Although it is impossible to know at this point if you have COVID-19 (the [place] virus), please quarantine yourself and anyone else that is residing with you for the longer of the following time periods: 14 days OR 3 days after the last of your symptoms has resolved CONTACT THE DOCTOR RIGHT AWAY if you develop worsening symptoms such as shortness of breath, chest pain, neck stiffness, confusion or any other new, worsening, or concerning symptoms. For emergencies contact 911 immediately. Audelia Hernandez D.O. May 27, 2020 05:02
[2020-05-27] MEDS ORDERED: CETIRIZINE HCL10 M1 PO (05:05)
[2020-05-27 05:15] VITALS: BP 130/84
== END 2020-05-27 05:15 | disposition home or self-care (01) ==
LOC: EMR 04:46
DX: J06.9 Acute upper respiratory infection, unspecified (principal); J30.9 Allergic rhinitis, unspecified; J98.01 Acute bronchospasm; J40 Bronchitis, not specified as acute or chronic; Z20.828 Contact with and (suspected) exposure to other viral communicable diseases
CPT/HCPCS: 93005; 99283; U0004

== ENCOUNTER 2020-06-08 14:15 | Emergency (ER) | payer OTHER ==
[~2020-06-08] VITALS: Ht 170.2 cm; Wt 82.1 kg
[~2020-06-08 14:15] MED LIST changes: +CETIRIZINE HCL10 M1 PO; +GUAIFENESIN DM118 M1 ORAL; +PROVENTIL HFA6.7 G1 IH
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
[2020-06-08 15:14] VITALS: BP 125/81
[2020-06-08] MEDS ORDERED: OLOPATADINE HCL5 ML OP (15:16)
[2020-06-08 15:20] VITALS: BP 125/81
--- NOTE | 2020-06-08 15:20 | NUR ---
ED Nurse Note: Pt cleared by health care Provider for discharge. DC instructions/prescription was given and explained to pt and verbalized understanding of teachings. All medical deviecs such as ID band removed. Pt is AAO x4, ambulatory and left with all personal belongings.
== END 2020-06-08 15:41 | disposition home or self-care (01) ==
LOC: EMR 15:14
DX: H10.13 Acute atopic conjunctivitis, bilateral (principal); Z21 Asymptomatic human immunodeficiency virus [HIV] infection status
CPT/HCPCS: 99282

== ENCOUNTER 2020-06-13 11:27 | Emergency (ER) | payer OTHER ==
[~2020-06-13] VITALS: Ht 170.2 cm; Wt 85.7 kg
[~2020-06-13 11:27] MED LIST changes: +OLOPATADINE HCL5 ML OP
[2020-06-13 11:45] VITALS: BP 126/82
--- NOTE | 2020-06-13 11:45 | NUR ---
ED Nurse Note: Pt walked in from home c/o throat tightness since last night. Pt reports eating food and it went "down the wrong pipe." Since then, the patient has had some discomfort. Denies food allergy. No resp distress noted. Respiations even and unlabored on room air. Vitals stable as documneted. A+Ox4, speaking in complete sentences.
[2020-06-13] MEDS ORDERED: ALBUTEROL SULF8.5 G1 INH (11:50)
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
[2020-06-13 12:00] VITALS: BP 131/85
--- NOTE | 2020-06-13 12:00 | NUR ---
ED Nurse Note: Pt cleared by health care Provider for discharge. DC instructions/prescription were given and explained to pt and verbalized understanding of teachings. All medical deviecs such as ID band removed. Pt is AAO x4, ambulatory and left with all personal belongings.
== END 2020-06-13 12:00 | disposition home or self-care (01) ==
LOC: EMR 12:00
DX: J98.01 Acute bronchospasm (principal); Z21 Asymptomatic human immunodeficiency virus [HIV] infection status
CPT/HCPCS: 99282

== ENCOUNTER 2020-06-14 21:26 | Emergency (ER) | payer SELFPAY ==
[~2020-06-14] VITALS: Ht 170.2 cm; Wt 85.7 kg
[~2020-06-14 21:26] MED LIST changes: +ALBUTEROL SULF8.5 G1 INH
--- NOTE | 2020-06-14 22:25 | Emergency Room Report ---
History of Present Illness General Chief Complaint: General Complaint Source: Patient Present Illness HPI This is a 55-year-old male well-known to me. He has a history of anxiety. He presents with chief complaint of tickling in his bronchioles. He said he was exposed to some dust 2 days ago. Tonight when take a deep breath he felt some tingling and tickling in his throat and chest area. Denies any fever chills but no nausea no vomiting. Slight cough. No other complaint. No chest pain. Allergies: Coded Allergies: No Known Allergies (Unverified , 10/04/16) COVID-19 Screening Contact w/high risk pt: No Recent Travel to affected area: No Experienced COVID-19 symptoms?: No COVID-19 Testing performed MAINTENANCE OF WAY SUPERINTENDENT: No Patient History Past Medical History: see triage record, old chart reviewed, psych hx Past Surgical History: none Pertinent Family History: none Social History: Denies: smoking Immunizations: other Reviewed Nursing Documentation: PMH: Agreed; PSxH: Agreed Nursing Documentation-PMH Past Medical History: No History, Except For Hx Cardiac Problems: Yes - HIV Hx Hypertension: Yes Hx Pacemaker: No - palpitations Hx Asthma: Yes Hx COPD: No Hx Diabetes: No Hx Cancer: No Hx Dialysis: No Hx Neurological Problems: No Hx Cerebrovascular Accident: No Hx Seizures: No Review of Systems Eye: Denies: eye pain, blurred vision ENT: Denies: ear pain, nose congestion, throat swelling Respiratory: Reports: cough; Denies: shortness of breath Cardiovascular: Denies: chest pain, palpitations Gastrointestinal: Denies: abdominal pain, diarrhea, nausea, vomiting Musculoskeletal: Denies: back pain, joint pain Skin: Denies: rash Neurological: Denies: headache, numbness Endocrine: Denies: increased thirst, increased urine Hematologic/Lymphatic: Denies: easy bruising All Other Systems: negative except mentioned in HPI Physical Exam Vital Signs Date Time Temp Pulse Resp B/P (MAP) Pulse Ox O2 Delivery O2 Flow Rate FiO2 06/14/20 22:11 97.9 60 20 131/87 (102) 97 Room Air vitals normal Sp02 EP Interpretation: reviewed, normal General Appearance: well appearing, no apparent distress, alert Head: normocephalic, atraumatic Eyes: bilateral eye PERRL, bilateral eye EOMI ENT: hearing grossly normal, normal pharynx Neck: full range of motion, supple, no meningismus Respiratory: chest non-tender, lungs clear, normal breath sounds Cardiovascular #1: regular rate, rhythm, no murmur Gastrointestinal: normal bowel sounds, non tender, no mass, no organomegaly, no bruit, non-distended Musculoskeletal: back normal, normal range of motion, gait/station normal Psychiatric: mood/affect normal Medical Decision Making Diagnostic Impression: Primary Impression: Encounter for generalized patient complaints Additional Impression: Cough ER Course Patient presents with a slight cough. I think this is more psychogenic in nature. He looks well. No fever or chills. No evidence of ACS, PE, dissection to name a few. Last Vital Signs Date Time Temp Pulse Resp B/P (MAP) Pulse Ox O2 Delivery O2 Flow Rate FiO2 06/14/20 22:11 97.9 60 20 131/87 (102) 97 Room Air Status: unchanged Disposition: HOME, SELF-CARE Condition: Stable Additional Instructions: Follow-up with your Dr. in 7 days. Return if symptoms worsen. Josh Reed MD Jun 14, 2020 22:25
[2020-06-14 22:32] VITALS: BP 131/87
== END 2020-06-14 22:35 | disposition home or self-care (01) ==
LOC: EMR 22:05
DX: Z00.8 Encounter for other general examination (principal); R05 Cough; J45.909 Unspecified asthma, uncomplicated; I10 Essential (primary) hypertension; Z21 Asymptomatic human immunodeficiency virus [HIV] infection status
CPT/HCPCS: 99281

== ENCOUNTER 2020-07-08 10:30 | Emergency (ER) | payer MEDICAID ==
[~2020-07-08] VITALS: Ht 170.2 cm; Wt 84.8 kg
[2020-07-08 10:40] VITALS: BP 116/75
[2020-07-08] MEDS ORDERED: CETIRIZINE HCL10 M1 PO (10:55)
--- NOTE | 2020-07-08 11:05 | Emergency Room Report ---
History of Present Illness General Chief Complaint: General Complaint Source: Patient Present Illness HPI Is a 55-year-old male presents for increased palpitations. Patient had prior history of anxiety. Reports having some increased nasal congestion as well as increased eye itchiness. Prior history of seasonal allergies. Patient states that he had noticed increased dust where he is staying. Patient denies any chest discomfort patient is currently taking atenolol as well as HIV medication. Reports having negative stress test, followed by Dr. Delgado. Allergies: Coded Allergies: No Known Allergies (Unverified , 10/04/16) COVID-19 Screening Contact w/high risk pt: No Recent Travel to affected area: No Experienced COVID-19 symptoms?: No COVID-19 Testing performed COUNTER SALES REPRESENTATIVE: No Patient History Past Medical History: see triage record Reviewed Nursing Documentation: PMH: Agreed; PSxH: Agreed Nursing Documentation-PMH Past Medical History: No History, Except For Hx Cardiac Problems: Yes - HIV Hx Hypertension: Yes Hx Pacemaker: No - palpitations Hx Asthma: Yes Hx COPD: No Hx Diabetes: No Hx Cancer: No Hx Dialysis: No Hx Neurological Problems: No Hx Cerebrovascular Accident: No Hx Seizures: No Review of Systems All Other Systems: negative except mentioned in HPI Physical Exam Vital Signs Date Time Temp Pulse Resp B/P (MAP) Pulse Ox O2 Delivery O2 Flow Rate FiO2 07/08/20 10:40 97.9 77 18 116/75 (89) 95 Room Air General Appearance: well appearing, no apparent distress, alert, GCS 15, non- toxic Head: normocephalic, atraumatic ENT: hearing grossly normal, normal voice Neck: full range of motion, supple Respiratory: no respiratory distress, speaking full sentences Cardiovascular #1: normal inspection, regular rate, rhythm, no edema Musculoskeletal: normal inspection, no calf tenderness Neurologic: alert, motor strength/tone normal, 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 Differential diagnosis include was not limited to seasonal allergies, viral respiratory infection, palpitations among others. Patient has a benign exam and does not appear to require any imaging or laboratory testing at this time. Patient has had multiple previous visits for similar symptoms in the past. EKG interpreted by me showed normal sinus rhythm with nonspecific ST changes consistent with patient's prior EKGs. 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 He denies any current chest pain or palpitations. Patient stated he had gone to the gym earlier today and did not have any symptoms during exercise or exertion. This medical record is generated with [employer] automatic bandsaw tender software. There may be some automatic bandsaw tender discrepancies related to use of this software EKG Diagnostic Results Rate: normal Rhythm: NSR ST Segments: no acute changes Last Vital Signs Date Time Temp Pulse Resp B/P (MAP) Pulse Ox O2 Delivery O2 Flow Rate FiO2 07/08/20 10:40 97.9 77 18 116/75 (89) 95 Room Air Status: improved Disposition: HOME, SELF-CARE Condition: Stable Scripts Cetirizine Hcl (ZyrTEC*) 10 Mg Tab.chew 10 MG PO DAILY for Allergies, #14 TAB Prov: Norman Palmer MD 07/08/20 Patient Instructions: Allergies Additional Instructions: Follow up with your doctor for recheck. Return if worse. Norman Palmer MD Jul 08, 2020 11:05
--- NOTE | 2020-07-09 14:54 | Cardiology Report ---
APPROVED REPORT EKG Measurement Heart [id number] <Conclusion> Normal sinus rhythm Nonspecific ST abnormality Abnormal ECG
== END 2020-07-08 11:04 | disposition home or self-care (01) ==
LOC: EMR 10:51
DX: J30.2 Other seasonal allergic rhinitis (principal); B20 Human immunodeficiency virus [HIV] disease; I10 Essential (primary) hypertension; F41.9 Anxiety disorder, unspecified
CPT/HCPCS: 93005; Z7502; 99282